=== PATIENT | female | born 1935 | race Caucasian/White ===

== ENCOUNTER 2017-11-05 09:33 | Inpatient (IN) | payer OTHER ==
[~2017-11-05] VITALS: Ht 162.6 cm; Wt 66.7 kg
[2017-11-05] MEDS ORDERED: IV NORMAL SALINE 500ML BAG 500 ML IV ONE (10:30)
[2017-11-05 10:41] LABS: BILIRUBIN,URINE NEGATIVE (NEG); GLUCOSE,URINE NEGATIVE (NEG); NITRITE,URINE NEGATIVE (NEG); PROTEIN,URINE 30 mg/dL (NEG-TRACE); UROBILINOGEN,URINE 0.2 mg/dL (0.2 mg/dL)
[2017-11-05 10:41] LABS: BASO % 1 % (0-3); EOS % 1 % (0-3); HEMATOCRIT 38.1 % (36.0-47.0); HEMOGLOBIN 12.9 g/dL (12.0-15.5); LYMPH # 1.2 x10^3/uL (1.0-4.8); LYMPH % 23 % (24-48); MEAN CORPUSCULAR HEMOGLOBIN 32 pg (25-35); MEAN CORPUSCULAR HGB CONC 34 g/dL (31-37); MEAN CORPUSCULAR VOLUME 95 fL (79-100); MONO % 16 % (0-9); NEUT % 59 % (31-73); PLATELET COUNT 224 x10^3/uL (140-400); RED BLOOD COUNT 4.01 x10^6/uL (3.50-5.40); RED CELL DISTRIBUTION WIDTH 14.3 % (11.5-14.5); WHITE BLOOD COUNT 5.3 x10^3/uL (4.0-11.0)
[2017-11-05 10:42] LABS: CALCIUM 8.9 mg/dL (8.5-10.1); CREATININE 1.2 mg/dL (0.6-1.0); POTASSIUM 4.1 mmol/L (3.5-5.1)
[2017-11-05 10:47] LABS: ALBUMIN 3.6 g/dL (3.4-5.0); ALBUMIN/GLOBULIN RATIO 1.2 (1.0-1.7); TOTAL BILIRUBIN 0.4 mg/dL (0.2-1.0); TOTAL PROTEIN 6.6 g/dL (6.4-8.2)
--- NOTE | 2017-11-05 10:58 | RAD ---
PQRS Compliance Statement: One or more of the following individualized dose reduction techniques were utilized for this examination: 1. Automated exposure control 2. Adjustment of the mA and/or kV according to patient size 3. Use of iterative reconstruction technique CT HEAD AND CERVICAL SPINE WITHOUT CONTRAST History: syncope head injury Comparison: None. Procedure: Axial images are obtained of the head from the skull base through the vertex without IV contrast. Noncontrast helical CT of the cervical spine was performed. Axial, sagittal, and coronal reconstructions were obtained. Head Findings: The ventricles and sulci are prominent, consistent with age-related cerebral atrophy. There is moderate periventricular white matter hypoattenuation. This is a nonspecific finding but is commonly due to chronic small vessel ischemic disease in a patient of this age. No mass-effect, midline shift, hemorrhage or obvious acute infarction is identified. Basilar cisterns are patent. Bone windows demonstrate no significant calvarial abnormality. The visualized paranasal sinuses appear clear. Mastoid air cells are well aerated. Cervical Spine Findings: There is no evidence of acute fracture or acute malalignment. . The facet joints are intact but hypertrophic. Some of the left facet joints are fused. There is minimal grade 1 anterolisthesis of C6 on C7. There is fracture at the superior endplate of C7 but this is not acute. Large anterior endplate spurs of C6/C7. Disc space is relatively maintained. There is moderate retrograde odontoid soft tissue thickening that nearly abuts the ventral cord. Bilateral carotid bulb calcifications. Question narrowing of the right internal carotid artery. The visualized lung apices are clear. IMPRESSION: 1. No acute intracranial abnormality. Senescent changes. 2. No acute fracture of the cervical spine. 3. Old compression fracture at the superior endplate of C7.
--- NOTE | 2017-11-05 10:59 | RAD ---
AP PORTABLE CHEST Clinical Indication: cough. Comparison: None. Findings: Cardiac size upper limits of normal. Calcified granulomas in the bilateral lung bases. Lungs are clear. There is no pneumothorax. No pleural effusion is appreciated. There is no acute bone abnormality. IMPRESSION: No acute cardiopulmonary process.
[2017-11-05 11:09] LABS: BACTERIA,URINE 0 /HPF (0-FEW); SQUAMOUS EPITHELIAL CELL,UR MOD /LPF
[2017-11-05 11:11] LABS: INR 0.9 (0.8-1.1)
--- NOTE | 2017-11-05 11:15 | EKG ---
[facility] [address] [place] [id number] Test Date: 2017-11-05 Test Time: 09:53:12 Pat Name: JEMAL MONTES Department: Room: Gender: F Family Program Specialist: : [id number] Requested By: AMINATA BAEZ Order Number: [id number] Reading MD: Measurements Intervals Call Rate: 79 P: 175 CO: 146 QRS: 0 QRSD: 80 T: 25 QT: 356 QTc: 413 Interpretive Statements SINUS RHYTHM LEFTWARD AXIS QRS(T) CONTOUR ABNORMALITY CONSISTENT WITH ANTEROSEPTAL INFARCT AGE UNDETERMINED ABNORMAL ECG No previous ECG available for comparison
[2017-11-05] MEDS ORDERED: ACETAMINOPHEN 325 MG TABLET. PO PRN (13:45)
[2017-11-05] MEDS ORDERED: ONDANSETRON PF 4 MG/2 ML VIAL. IV PRN (13:45)
[2017-11-05 14:00] VITALS: BP 160/46
[2017-11-05 16:00] VITALS: BP 149/46
[2017-11-05] MEDS ORDERED: CETI10CA12 PO (16:29)
[2017-11-05] MEDS ORDERED: LISI40TA PO (16:29)
[2017-11-05] MEDS ORDERED: LEVO100T5 PO (16:29)
[2017-11-05] MEDS ORDERED: AMLO5TAB2 PO (16:29)
[2017-11-05] MEDS ORDERED: ASPI-630 PO (16:29)
[2017-11-05] MEDS ORDERED: MULT-245 PO (16:29)
[2017-11-05] MEDS ORDERED: CALC1TAB67 PO (16:29)
--- NOTE | 2017-11-05 17:31 | PDOC1 ---
History and Physical Date of Admission Date of Admission DATE: 11/05/17 TIME: 17:23 Identification/Chief Complaint Chief Complaint syncope Problems: Source Source: Chart review, Patient History of Present Illness History of Present Illness Ms. Gandara presented to the ER s/p acute syncope, she was in the bathroom, fixing her hair, and had no prodrome and blacked out. SHe did not remember event and awoke on the floor, she does not think she injured herself She also fell last night 5:30pm, and hit the posterior of her head, she has had some headache since, Pain 3/10 no dyspnea, no post-ictal, some small chills and fever and cough last 3 days, her and she both have symptoms of common cold Past Medical History Cardiovascular: No pertinent hx Pulmonary: No pertinent hx Hepatobiliary: No pertinent hx Psych: No pertinent hx Musculoskeletal: low back pain Rheumatologic: No pertinent hx Infectious disease: No pertinent hx ENT: No pertinent hx Renal/: No pertinent hx Family History Family History: No Significant Social History Smoke: No ALCOHOL: none Current Problem List Problem List Problems Medical Problems: (1) Syncope Status: Acute Problems: Current Medications Current Medications Current Medications Sodium Chloride 500 ml @ 0 mls/hr 1X ONCE IV Last administered on 11/05/17t 10:30; Start 11/05/17 at 10:30; Stop 11/05/17 at 10:31; Status DC Ondansetron HCl (Zofran) 4 mg PRN Q8HRS PRN IV NAUSEA/VOMITING; Start at 13:45; Stop 11/06/17 at 13:44 Acetaminophen (Tylenol) 650 mg PRN Q4HRS PRN PO FEVER; Start 11/05/17 at 13:45 ; Stop 11/06/17 at 13:44 Active Scripts Active Reported Wal-Zyr (Cetirizine HCl) 10 Mg Capsule 10 Mg PO PRN DAILY PRN Multi Vitamin Daily (Multivitamin) 1 Each Tablet 1.5 Each PO DAILY Calcitrate + Vit D Caplet (Calcium Citrate/Vitamin D3) 1 Each Tablet 1 Each PO DAILY Aspirin 81 Mg Tab.chew 81 Mg PO DAILY Levothyroxine Sodium 100 Mcg Tablet 100 Mcg PO DAILYAC Amlodipine Besylate 5 Mg Tablet 5 Mg PO DAILY Lisinopril 40 Mg Tablet 40 Mg PO DAILY Allergies Allergies: Coded Allergies: erythromycin base (Verified Allergy, Intermediate, 11/05/17) ROS General: YES: Fatigue, No: Chills, Night Sweats, Malaise, Appetite, Other PSYCHOLOGICAL ROS: No: Anxiety, Behavioral Disorder, Concentration difficultie , Decreased libido, Depression, Disorientation, Hallucinations, Hostility, Irritablity, Memory difficulties, Mood Swings, Obsessive thoughts, Physical abuse, Sexual abuse, Sleep disturbances, Suicidal ideation, Other Eyes: No Blurry vision, No Decreased vision, No Double vision, No Dry eyes, No Excessive tearing, No Eye Pain, No Itchy Eyes, No Loss of vision, No Photophobia , No Scotomata, No Uses contacts, No Uses glasses, No Other HEENT: No: Heacaches, Visual Changes, Hearing change, Nasal congestion, Nasal discharge, Oral lesions, Sinus pain, Sore Throat, Epistaxis, Sneezing, Snoring, Tinnitus, Vertigo, Vocal changes, Other Respiratory: No: Cough, Hemoptysis, Orthopnea, Pleuritic Pain, Shortness of breath, SOB with excertion, Sputum Changes, Stridor, Tachypnea, Wheezing, Other Cardiovascular: No Chest Pain, No Palpitations, No Orthopnea, No Paroxysmal Noc. Dyspnea, No Edema, No Lt Headedness, No Other Gastrointestinal: No Nausea, No Vomiting, No Abdominal Pain, No Diarrhea, No Constipation, No Melena, No Hematochezia, No Other Genitourinary: No Dysuria, No Frequency, No Incontinence, No Hematuria, No Retention, No Discharge, No Urgency, No Pain, No Flank Pain, No Other, No , No , No , No , No , No , No Musculoskeletal: Yes Joint Pain, No Gait Disturbance, No Joint Stiffness, No Joint Swelling, No Muscle Pain, No Muscular Weakness, No Pain In:, No Swelling In:, No Other Neurological: No Behavorial Changes, No Bowel/Bladder ControlChng, No Confusion , No Dizziness, No Gait Disturbance, No Headaches, No Impaired Coord/balance, No Memory Loss, No Numbness/Tingling, No Seizures, No Speech Problems, No Tremors, No Visual Changes, No Weakness, No Other Skin: No Dry Skin, No Eczema, No Hair Changes, No Lumps, No Mole Changes, No Mottling, No Nail Changes, No Pruritus, No Rash, No Skin Lesion Changes, No Other, No Acne Physical Exam General: Alert, Oriented X3, Cooperative, No acute distress HEENT: Atraumatic, PERRLA, EOMI, Mucous membr. moist/pink Lungs: Clear to auscultation, Normal air movement Heart: S1S2, no gallops, no murmurs Abdomen: Normal bowel sounds Rectal Exam: not examined Extremities: No cyanosis, No edema Skin: No rashes, No significant lesion Neuro: Normal gait, Normal speech, Normal tone Psych/Mental Status: Mental status NL, Mood NL Vitals Vitals Vital Signs Date Time Temp Pulse Resp B/P (MAP) Pulse Ox O2 Delivery O2 Flow Rate FiO2 11/05/17 16:00 96.0 70 16 149/46 (80) 92 Room Air 96.0 Labs Labs Laboratory Tests Test 11/05/17 09:46 11/05/17 10:01 Urine Collection Type Unknown Urine Color Yellow Urine Clarity Clear Urine pH 8.0 Urine Specific [place] 1.015 Urine Protein 30 mg/dL (NEG-TRACE) Urine Glucose (UA) Negative mg/dL (NEG) Urine Ketones (Stick) Negative mg/dL (NEG) Urine Blood Negative (NEG) Urine Nitrite Negative (NEG) Urine Bilirubin Negative (NEG) Urine Urobilinogen Dipstick 0.2 mg/dL (0.2 mg/dL) Urine Leukocyte Esterase Negative (NEG) Urine RBC 6-10 /HPF (0-2) Urine WBC 1-4 /HPF (0-4) Urine Squamous Epithelial Cells Mod /LPF Urine Renal Epithelial Cells Occ /LPF Urine Bacteria 0 /HPF (0-FEW) Urine Hyaline Casts Few /HPF White Blood Count 5.3 x10^3/uL (4.0-11.0) Red Blood Count 4.01 x10^6/uL (3.50-5.40) Hemoglobin 12.9 g/dL (12.0-15.5) Hematocrit 38.1 % (36.0-47.0) Mean Corpuscular Volume 95 fL (79-100) Mean Corpuscular Hemoglobin 32 pg (25-35) Mean Corpuscular Hemoglobin Concent 34 g/dL (31-37) Red Cell Distribution Width 14.3 % (11.5-14.5) Platelet Count 224 x10^3/uL (140-400) Neutrophils (%) (Auto) 59 % (31-73) Lymphocytes (%) (Auto) 23 % (24-48) Monocytes (%) (Auto) 16 % (0-9) Eosinophils (%) (Auto) 1 % (0-3) Basophils (%) (Auto) 1 % (0-3) Neutrophils # (Auto) 3.1 x10^3uL (1.8-7.7) Lymphocytes # (Auto) 1.2 x10^3/uL (1.0-4.8) Monocytes # (Auto) 0.9 x10^3/uL (0.0-1.1) Eosinophils # (Auto) 0.1 x10^3/uL (0.0-0.7) Basophils # (Auto) 0.0 x10^3/uL (0.0-0.2) Prothrombin Time 12.0 SEC (11.7-14.0) Prothromb Time International Ratio 0.9 (0.8-1.1) Activated Partial Thromboplast Time 29 SEC (24-38) Sodium Level 141 mmol/L (136-145) Potassium Level 4.1 mmol/L (3.5-5.1) Chloride Level 101 mmol/L (98-107) Carbon Dioxide Level 29 mmol/L (21-32) Anion Gap 11 (6-14) Blood Urea Nitrogen 11 mg/dL (7-20) Creatinine 1.2 mg/dL (0.6-1.0) Estimated GFR (Cockcroft-Gault) 43.0 BUN/Creatinine Ratio 9 (6-20) Glucose Level 108 mg/dL (70-99) Calcium Level 8.9 mg/dL (8.5-10.1) Magnesium Level 2.0 mg/dL (1.8-2.4) Total Bilirubin 0.4 mg/dL (0.2-1.0) Aspartate Amino Transf (AST/SGOT) 37 U/L (15-37) Alanine Aminotransferase (ALT/SGPT) 29 U/L (14-59) Alkaline Phosphatase 116 U/L (46-116) Troponin I Quantitative < 0.017 ng/mL (0.000-0.055) RZ-Crf-P-Type Natriuretic Peptide 1249 pg/mL (0-449) Total Protein 6.6 g/dL (6.4-8.2) Albumin 3.6 g/dL (3.4-5.0) Albumin/Globulin Ratio 1.2 (1.0-1.7) Thyroid Stimulating Hormone (TSH) 1.228 uIU/mL (0.358-3.74) Laboratory Tests Test 11/05/17 09:46 11/05/17 10:01 Urine Collection Type Unknown Urine Color Yellow Urine Clarity Clear Urine pH 8.0 Urine Specific [place] 1.015 Urine Protein 30 mg/dL (NEG-TRACE) Urine Glucose (UA) Negative mg/dL (NEG) Urine Ketones (Stick) Negative mg/dL (NEG) Urine Blood Negative (NEG) Urine Nitrite Negative (NEG) Urine Bilirubin Negative (NEG) Urine Urobilinogen Dipstick 0.2 mg/dL (0.2 mg/dL) Urine Leukocyte Esterase Negative (NEG) Urine RBC 6-10 /HPF (0-2) Urine WBC 1-4 /HPF (0-4) Urine Squamous Epithelial Cells Mod /LPF Urine Renal Epithelial Cells Occ /LPF Urine Bacteria 0 /HPF (0-FEW) Urine Hyaline Casts Few /HPF White Blood Count 5.3 x10^3/uL (4.0-11.0) Red Blood Count 4.01 x10^6/uL (3.50-5.40) Hemoglobin 12.9 g/dL (12.0-15.5) Hematocrit 38.1 % (36.0-47.0) Mean Corpuscular Volume 95 fL (79-100) Mean Corpuscular Hemoglobin 32 pg (25-35) Mean Corpuscular Hemoglobin Concent 34 g/dL (31-37) Red Cell Distribution Width 14.3 % (11.5-14.5) Platelet Count 224 x10^3/uL (140-400) Neutrophils (%) (Auto) 59 % (31-73) Lymphocytes (%) (Auto) 23 % (24-48) Monocytes (%) (Auto) 16 % (0-9) Eosinophils (%) (Auto) 1 % (0-3) Basophils (%) (Auto) 1 % (0-3) Neutrophils # (Auto) 3.1 x10^3uL (1.8-7.7) Lymphocytes # (Auto) 1.2 x10^3/uL (1.0-4.8) Monocytes # (Auto) 0.9 x10^3/uL (0.0-1.1) Eosinophils # (Auto) 0.1 x10^3/uL (0.0-0.7) Basophils # (Auto) 0.0 x10^3/uL (0.0-0.2) Prothrombin Time 12.0 SEC (11.7-14.0) Prothromb Time International Ratio 0.9 (0.8-1.1) Activated Partial Thromboplast Time 29 SEC (24-38) Sodium Level 141 mmol/L (136-145) Potassium Level 4.1 mmol/L (3.5-5.1) Chloride Level 101 mmol/L (98-107) Carbon Dioxide Level 29 mmol/L (21-32) Anion Gap 11 (6-14) Blood Urea Nitrogen 11 mg/dL (7-20) Creatinine 1.2 mg/dL (0.6-1.0) Estimated GFR (Cockcroft-Gault) 43.0 BUN/Creatinine Ratio 9 (6-20) Glucose Level 108 mg/dL (70-99) Calcium Level 8.9 mg/dL (8.5-10.1) Magnesium Level 2.0 mg/dL (1.8-2.4) Total Bilirubin 0.4 mg/dL (0.2-1.0) Aspartate Amino Transf (AST/SGOT) 37 U/L (15-37) Alanine Aminotransferase (ALT/SGPT) 29 U/L (14-59) Alkaline Phosphatase 116 U/L (46-116) Troponin I Quantitative < 0.017 ng/mL (0.000-0.055) PA-Bmm-I-Type Natriuretic Peptide 1249 pg/mL (0-449) Total Protein 6.6 g/dL (6.4-8.2) Albumin 3.6 g/dL (3.4-5.0) Albumin/Globulin Ratio 1.2 (1.0-1.7) Thyroid Stimulating Hormone (TSH) 1.228 uIU/mL (0.358-3.74) VTE Prophylaxis Ordered VTE Prophylaxis Devices: Yes VTE Pharmacological Prophylaxi: No Assessment/Plan Assessment/Plan syncope x2, last night caused concussion, some post skull pain Cardiac history, of mild chronic systolic CHF, follows w/ Dr Lagunast, tele, UA, TSH hypothyroid viral illness, NOS, cough and runny nose, poss rhinovirus CV consult DINO GLASS MD Nov 05, 2017 17:31
[2017-11-05] MEDS ORDERED: CETIRIZINE HCL 10 MG TABLET. PO PRN (17:34)
--- NOTE | 2017-11-05 17:51 | PHYS DOC ---
Past Medical History Past Medical History: High Cholesterol, Hypertension, Hypothyroid, Uterine Fibroids Additional Past Medical Histor: osteoporosis, breast ca Past Surgical History: Appendectomy, Cholecystectomy, Tonsillectomy Alcohol Use: Occasionally Drug Use: None Adult General Chief Complaint Chief Complaint: SYNCOPE HPI HPI Patient is a 82 year old female who presents with syncope. The patient states shortly prior to arrival she experienced syncope without prodrome at her home. She doesn't remember the events preceding the fall, states she woke up on the ground. Family members saw her fall, no seizure activity witnessed. They think she hit her head & was unconscious for 2-3 minutes. She denies any precipitating chest pain, palpitations, shortness of breath, headache. She has recent dry cough & nasal congestion. Denies fevers/chills, vomiting, diarrhea, dysuria. She had a similar syncopal episode yesterday. She does not use a cane or walker to ambulate at home. She complains of headache but denies other injuries. Denies use of blood thinners. PCP is Dr. Mccullough. Review of Systems Review of Systems Constitutional: Denies fever or chills Eyes: Denies change in visual acuity HENT: Reports nasal congestion Respiratory: Reports cough, denies shortness of breath Cardiovascular: Denies chest pain or edema GI: Denies abdominal pain, nausea, vomiting, bloody stools or diarrhea : Denies dysuria or hematuria Musculoskeletal: Denies back pain or joint pain Integument: Denies rash or skin lesions Neurologic: Reports headache, denies focal weakness or sensory changes All other systems were reviewed and found to be within normal limits, except as documented in this note. Current Medications Current Medications Current Medications Medications (Trade) Dose Ordered Sig/Neftali Start Time Stop Time Status Last Admin Dose Admin Sodium Chloride 500 ml @ 0 mls/hr 1X ONCE 11/05/17 10:30 11/05/17 10:31 DC 11/05/17 10:30 1,000 MLS/HR Physical Exam Physical Exam Constitutional: Well developed, well nourished, no acute distress, non-toxic appearance. HENT: Normocephalic, atraumatic, bilateral external ears normal, oropharynx moist, nose normal. Eyes: PERRLA, EOMI, conjunctiva normal, no discharge. Neck: supple, no stridor. no midline c-spine tenderness. Cardiovascular: RRR, no murmurs, no edema. Lungs & Thorax: LCTAB, no wheezing, no respiratory distress. Abdomen: soft, nontender, nondistended. Skin: Warm, dry, no erythema, no rash. Back: No tenderness. Extremities: No tenderness, no edema. no focal bony tenderness to upper & lower extremities including hips/pelvis. Neurologic: Alert and oriented X 3, cranial nerves 2-12 grossly intact, symmetric strength/sensation to upper & lower extremities, no focal deficits noted. Psychologic: Affect normal, judgement normal, mood normal. Current Patient Data Vital Signs Vital Signs Date Time Temp Pulse Resp B/P (MAP) Pulse Ox O2 Delivery O2 Flow Rate FiO2 11/05/17 12:00 66 18 147/95 (112) 89 Room Air Lab Values Laboratory Tests Test 11/05/17 09:46 11/05/17 10:01 Urine Collection Type Unknown Urine Color Yellow Urine Clarity Clear Urine pH 8.0 Urine Specific [place] 1.015 Urine Protein 30 mg/dL (NEG-TRACE) Urine Glucose (UA) Negative mg/dL (NEG) Urine Ketones (Stick) Negative mg/dL (NEG) Urine Blood Negative (NEG) Urine Nitrite Negative (NEG) Urine Bilirubin Negative (NEG) Urine Urobilinogen Dipstick 0.2 mg/dL (0.2 mg/dL) Urine Leukocyte Esterase Negative (NEG) Urine RBC 6-10 /HPF (0-2) Urine WBC 1-4 /HPF (0-4) Urine Squamous Epithelial Cells Mod /LPF Urine Renal Epithelial Cells Occ /LPF Urine Bacteria 0 /HPF (0-FEW) Urine Hyaline Casts Few /HPF White Blood Count 5.3 x10^3/uL (4.0-11.0) Red Blood Count 4.01 x10^6/uL (3.50-5.40) Hemoglobin 12.9 g/dL (12.0-15.5) Hematocrit 38.1 % (36.0-47.0) Mean Corpuscular Volume 95 fL (79-100) Mean Corpuscular Hemoglobin 32 pg (25-35) Mean Corpuscular Hemoglobin Concent 34 g/dL (31-37) Red Cell Distribution Width 14.3 % (11.5-14.5) Platelet Count 224 x10^3/uL (140-400) Neutrophils (%) (Auto) 59 % (31-73) Lymphocytes (%) (Auto) 23 % (24-48) L Monocytes (%) (Auto) 16 % (0-9) H Eosinophils (%) (Auto) 1 % (0-3) Basophils (%) (Auto) 1 % (0-3) Neutrophils # (Auto) 3.1 x10^3uL (1.8-7.7) Lymphocytes # (Auto) 1.2 x10^3/uL (1.0-4.8) Monocytes # (Auto) 0.9 x10^3/uL (0.0-1.1) Eosinophils # (Auto) 0.1 x10^3/uL (0.0-0.7) Basophils # (Auto) 0.0 x10^3/uL (0.0-0.2) Prothrombin Time 12.0 SEC (11.7-14.0) Prothrombin Time INR 0.9 (0.8-1.1) PTT 29 SEC (24-38) Sodium Level 141 mmol/L (136-145) Potassium Level 4.1 mmol/L (3.5-5.1) Chloride Level 101 mmol/L (98-107) Carbon Dioxide Level 29 mmol/L (21-32) Anion Gap 11 (6-14) Blood Urea Nitrogen 11 mg/dL (7-20) Creatinine 1.2 mg/dL (0.6-1.0) H Estimated GFR (Cockcroft-Gault) 43.0 BUN/Creatinine Ratio 9 (6-20) Glucose Level 108 mg/dL (70-99) H Calcium Level 8.9 mg/dL (8.5-10.1) Magnesium Level 2.0 mg/dL (1.8-2.4) Total Bilirubin 0.4 mg/dL (0.2-1.0) Aspartate Amino Transferase (AST) 37 U/L (15-37) Alanine Aminotransferase (ALT) 29 U/L (14-59) Alkaline Phosphatase 116 U/L (46-116) Troponin I Quantitative < 0.017 ng/mL (0.000-0.055) PU-Vsn-P-Type Natriuretic Peptide 1249 pg/mL (0-449) H Total Protein 6.6 g/dL (6.4-8.2) Albumin 3.6 g/dL (3.4-5.0) Albumin/Globulin Ratio 1.2 (1.0-1.7) Thyroid Stimulating Hormone (TSH) 1.228 uIU/mL (0.358-3.74) Laboratory Tests 11/05/17 10:01 Laboratory Tests 11/05/17 10:01 EKG EKG Interpreted by me: [id number]: Normal sinus rhythm rate 80, no acute ST or T wave changes, normal intervals, no ectopy. Radiology/Procedures Radiology/Procedures PROCEDURE: CT HEAD AND CERVICAL SPINE [facility] Compliance Statement: One or more of the following individualized dose reduction techniques were utilized for this examination: 1. Automated exposure control 2. Adjustment of the mA and/or kV according to patient size 3. Use of iterative reconstruction technique CT HEAD AND CERVICAL SPINE WITHOUT CONTRAST History: syncope head injury Comparison: None. Procedure: Axial images are obtained of the head from the skull base through the vertex without IV contrast. Noncontrast helical CT of the cervical spine was performed. Axial, sagittal, and coronal reconstructions were obtained. Head Findings: The ventricles and sulci are prominent, consistent with age-related cerebral atrophy. There is moderate periventricular white matter hypoattenuation. This is a nonspecific finding but is commonly due to chronic small vessel ischemic disease in a patient of this age. No mass-effect, midline shift, hemorrhage or obvious acute infarction is identified. Basilar cisterns are patent. Bone windows demonstrate no significant calvarial abnormality. The visualized paranasal sinuses appear clear. Mastoid air cells are well aerated. Cervical Spine Findings: There is no evidence of acute fracture or acute malalignment. . The facet joints are intact but hypertrophic. Some of the left facet joints are fused. There is minimal grade 1 anterolisthesis of C6 on C7. There is fracture at the superior endplate of C7 but this is not acute. Large anterior endplate spurs of C6/C7. Disc space is relatively maintained. There is moderate retrograde odontoid soft tissue thickening that nearly abuts the ventral cord. Bilateral carotid bulb calcifications. Question narrowing of the right internal carotid artery. The visualized lung apices are clear. IMPRESSION: 1. No acute intracranial abnormality. Senescent changes. 2. No acute fracture of the cervical spine. 3. Old compression fracture at the superior endplate of C7. DICTATED and SIGNED BY: SYDNI MCKEE MD DATE: 11/05/17 1047 PROCEDURE: CHEST AP ONLY AP PORTABLE CHEST Clinical Indication: cough. Comparison: None. Findings: Cardiac size upper limits of normal. Calcified granulomas in the bilateral lung bases. Lungs are clear. There is no pneumothorax. No pleural effusion is appreciated. There is no acute bone abnormality. IMPRESSION: No acute cardiopulmonary process. DICTATED and SIGNED BY: SYDNI MCKEE MD DATE: 11/05/17 1054[] Course & Med Decision Making Course & Med Decision Making Pertinent Labs and Imaging studies reviewed. (See chart for details) The patient presents with syncope without prodrome now with head injury. Obtained CT head & c-spine which shows no serious injury. Obtained labs, EKG, CXR. No significant findings to explain her symptoms. I did recommend admission for multiple episodes of syncope without prodrome, concerning for cardiac etiology of syncope. I am also concerned about risk of additional falls resulting in serious injury. Patient agrees with plan of care. Discussed with Dr. Ortega who agrees to admit to inpatient status. Cardiology consult to Dr. Sood. The patient is admitted in stable condition. Dragon Disclaimer Dragon Disclaimer This electronic medical record was generated, in whole or in part, using a voice recognition dictation system. Departure Departure Impression: Primary Impression: Syncope Additional Impression: Closed head injury Disposition: ADMITTED INPATIENT Admitting Physician: Elizabet Ortega Condition: STABLE Problem Qualifiers Primary Impression: Syncope Syncope type: unspecified Qualified Codes: R55 - Syncope and collapse AMINATA BAEZ MD Nov 05, 2017 17:51
[2017-11-05 19:20] VITALS: BP 156/47
[2017-11-05 23:32] VITALS: BP 129/48
[2017-11-06 03:38] VITALS: BP 130/48
[2017-11-06 07:00] VITALS: BP 151/50
[2017-11-06] MEDS ORDERED: LEVOTHYROXINE 100 MCG TABLET PO SCH (07:30)
[2017-11-06 07:33] LABS: BASO % 1 % (0-3); EOS % 1 % (0-3); HEMATOCRIT 36.1 % (36.0-47.0); LYMPH % 48 % (24-48); MEAN CORPUSCULAR HEMOGLOBIN 32 pg (25-35); MEAN CORPUSCULAR HGB CONC 33 g/dL (31-37); MEAN CORPUSCULAR VOLUME 97 fL (79-100); MONO % 22 % (0-9); NEUT % 29 % (31-73); PLATELET COUNT 184 x10^3/uL (140-400); RED BLOOD COUNT 3.74 x10^6/uL (3.50-5.40); RED CELL DISTRIBUTION WIDTH 14.5 % (11.5-14.5); WHITE BLOOD COUNT 4.2 x10^3/uL (4.0-11.0)
[2017-11-06 07:53] LABS: CALCIUM 8.5 mg/dL (8.5-10.1); CREATININE 1.2 mg/dL (0.6-1.0); POTASSIUM 4.2 mmol/L (3.5-5.1)
[2017-11-06] MEDS ORDERED: CALCIUM CARB/VIT D3 500/200 TABLET. PO SCH (08:00)
[2017-11-06] MEDS ORDERED: LISINOPRIL 40 MG TABLET. PO SCH (09:00)
[2017-11-06] MEDS ORDERED: ASPIRIN CHEWABLE 81 MG TABLET. PO SCH (09:00)
[2017-11-06] MEDS ORDERED: amLODIPine BESYLATE 5 MG TABLET PO SCH (09:00)
[2017-11-06] MEDS ORDERED: MULTIVITAMIN with MINERAL TABLET. PO SCH (09:00)
[2017-11-06 09:06] LABS: % EOS 1 % (0-5); PLT ESTIMATE ADEQUATE (ADEQUATE)
--- NOTE | 2017-11-06 10:57 | PDOC2 ---
CONSULT Date of Consult Date of Consult DATE: 11/06/17 TIME: 10:57 Reason for Consult Reason for Consult: syncope Referring Physician Referring Physician: Dr. Ortega Identification/Chief Complaint Chief Complaint Syncope Problems: Source Source: Chart review, Patient History of Present Illness Reason for Visit: 82-year-old female apparently was in her bathroom fixing her hair when she suddenly passed out and hit her head. According to her , she was not arousable for a few minutes. She had similar episode a few days ago. She thinks these episodes could be secondary to overworking herself due to holiday season. She denied any other episodes of dizziness or syncope in the past. She denied any chest pain, orthopnea/PND or palpitations. Past Medical History Cardiovascular: No pertinent hx Pulmonary: No pertinent hx Hepatobiliary: No pertinent hx Psych: No pertinent hx Musculoskeletal: low back pain Rheumatologic: No pertinent hx Infectious disease: No pertinent hx ENT: No pertinent hx Renal/: No pertinent hx Family History Family History: No Significant Social History No ALCOHOL: none Current Problem List Problem List Problems Medical Problems: (1) Closed head injury Status: Acute (2) Syncope Status: Acute Current Medications Current Medications Current Medications Sodium Chloride 500 ml @ 0 mls/hr 1X ONCE IV Last administered on 11/05/17 10:30; Start 11/05/17 at 10:30; Stop 11/05/17 at 10:31; Status DC Ondansetron HCl (Zofran) 4 mg PRN Q8HRS PRN IV NAUSEA/VOMITING; Start at 13:45; Stop 11/06/17 at 13:44 Acetaminophen (Tylenol) 650 mg PRN Q4HRS PRN PO FEVER Last administered on 21:21; Start 11/05/17 at 13:45; Stop 11/06/17 at 13:44 Amlodipine Besylate (Norvasc) 5 mg DAILY PO Last administered on 11/06/17 08: 41; Start 11/06/17 at 09:00 Aspirin (Children'S Aspirin) 81 mg DAILY PO Last administered on 11/06/17 08: 41; Start 11/06/17 at 09:00 Levothyroxine Sodium (Synthroid) 100 mcg DAILYAC PO Last administered on 08:41; Start 11/06/17 at 07:30 Lisinopril (Prinivil) 40 mg DAILY PO Last administered on 11/06/17 08:41; Start 11/06/17 at 09:00 Calcium/Vitamin D (Oscal D 500mg/ 200uts) 1 tab DAILYWBKFT PO Last administered on 11/06/17 08:40; Start 11/06/17 at 08:00 Cetirizine HCl (ZyrTEC) 10 mg PRN DAILY PRN PO ALLERGIES; Start 11/05/17 at 17 :34 Multivitamins (Thera M Plus) 1 tab DAILY PO Last administered on 11/06/17 08: 40; Start 11/06/17 at 09:00 Active Scripts Active Reported Wal-Zyr (Cetirizine HCl) 10 Mg Capsule 10 Mg PO PRN DAILY PRN Multi Vitamin Daily (Multivitamin) 1 Each Tablet 1.5 Each PO DAILY Calcitrate + Vit D Caplet (Calcium Citrate/Vitamin D3) 1 Each Tablet 1 Each PO DAILY Aspirin 81 Mg Tab.chew 81 Mg PO DAILY Levothyroxine Sodium 100 Mcg Tablet 100 Mcg PO DAILYAC Amlodipine Besylate 5 Mg Tablet 5 Mg PO DAILY Lisinopril 40 Mg Tablet 40 Mg PO DAILY Allergies Allergies: Coded Allergies: erythromycin base (Verified Allergy, Intermediate, 11/05/17) ROS PSYCHOLOGICAL ROS: No: Hallucinations Eyes: No Loss of vision HEENT: No: Epistaxis Respiratory: No: Hemoptysis, Shortness of breath Cardiovascular: No Chest Pain Gastrointestinal: No Vomiting, No Diarrhea Genitourinary: No Hematuria Neurological: Yes Other (syncope), No Seizures Skin: No Rash Physical Exam General: Alert, Oriented X3 HEENT: Atraumatic, PERRLA Lungs: Clear to auscultation Heart: Regular rate Abdomen: Soft, No tenderness Extremities: No edema Psych/Mental Status: Mood NL Vitals VITALS Vital Signs Date Time Temp Pulse Resp B/P (MAP) Pulse Ox O2 Delivery O2 Flow Rate FiO2 11/06/17 08:41 62 130/48 11/06/17 07:00 97.9 18 93 Room Air 97.9 Labs Labs Laboratory Tests Test 11/05/17 09:46 11/05/17 10:01 11/06/17 06:00 Urine Collection Type Unknown Urine Color Yellow Urine Clarity Clear Urine pH 8.0 Urine Specific [place] 1.015 Urine Protein 30 mg/dL (NEG-TRACE) Urine Glucose (UA) Negative mg/dL (NEG) Urine Ketones (Stick) Negative mg/dL (NEG) Urine Blood Negative (NEG) Urine Nitrite Negative (NEG) Urine Bilirubin Negative (NEG) Urine Urobilinogen Dipstick 0.2 mg/dL (0.2 mg/dL) Urine Leukocyte Esterase Negative (NEG) Urine RBC 6-10 /HPF (0-2) Urine WBC 1-4 /HPF (0-4) Urine Squamous Epithelial Cells Mod /LPF Urine Renal Epithelial Cells Occ /LPF Urine Bacteria 0 /HPF (0-FEW) Urine Hyaline Casts Few /HPF White Blood Count 5.3 x10^3/uL (4.0-11.0) 4.2 x10^3/uL (4.0-11.0) Red Blood Count 4.01 x10^6/uL (3.50-5.40) 3.74 x10^6/uL (3.50-5.40) Hemoglobin 12.9 g/dL (12.0-15.5) 12.0 g/dL (12.0-15.5) Hematocrit 38.1 % (36.0-47.0) 36.1 % (36.0-47.0) Mean Corpuscular Volume 95 fL (79-100) 97 fL (79-100) Mean Corpuscular Hemoglobin 32 pg (25-35) 32 pg (25-35) Mean Corpuscular Hemoglobin Concent 34 g/dL (31-37) 33 g/dL (31-37) Red Cell Distribution Width 14.3 % (11.5-14.5) 14.5 % (11.5-14.5) Platelet Count 224 x10^3/uL (140-400) 184 x10^3/uL (140-400) Neutrophils (%) (Auto) 59 % (31-73) 29 % (31-73) Lymphocytes (%) (Auto) 23 % (24-48) 48 % (24-48) Monocytes (%) (Auto) 16 % (0-9) 22 % (0-9) Eosinophils (%) (Auto) 1 % (0-3) 1 % (0-3) Basophils (%) (Auto) 1 % (0-3) 1 % (0-3) Neutrophils # (Auto) 3.1 x10^3uL (1.8-7.7) 1.2 x10^3uL (1.8-7.7) Lymphocytes # (Auto) 1.2 x10^3/uL (1.0-4.8) 2.0 x10^3/uL (1.0-4.8) Monocytes # (Auto) 0.9 x10^3/uL (0.0-1.1) 0.9 x10^3/uL (0.0-1.1) Eosinophils # (Auto) 0.1 x10^3/uL (0.0-0.7) 0.0 x10^3/uL (0.0-0.7) Basophils # (Auto) 0.0 x10^3/uL (0.0-0.2) 0.0 x10^3/uL (0.0-0.2) Prothrombin Time 12.0 SEC (11.7-14.0) Prothromb Time International Ratio 0.9 (0.8-1.1) Activated Partial Thromboplast Time 29 SEC (24-38) Sodium Level 141 mmol/L (136-145) 144 mmol/L (136-145) Potassium Level 4.1 mmol/L (3.5-5.1) 4.2 mmol/L (3.5-5.1) Chloride Level 101 mmol/L (98-107) 107 mmol/L (98-107) Carbon Dioxide Level 29 mmol/L (21-32) 29 mmol/L (21-32) Anion Gap 11 (6-14) 8 (6-14) Blood Urea Nitrogen 11 mg/dL (7-20) 14 mg/dL (7-20) Creatinine 1.2 mg/dL (0.6-1.0) 1.2 mg/dL (0.6-1.0) Estimated GFR (Cockcroft-Gault) 43.0 43.0 BUN/Creatinine Ratio 9 (6-20) Glucose Level 108 mg/dL (70-99) 87 mg/dL (70-99) Calcium Level 8.9 mg/dL (8.5-10.1) 8.5 mg/dL (8.5-10.1) Magnesium Level 2.0 mg/dL (1.8-2.4) Total Bilirubin 0.4 mg/dL (0.2-1.0) Aspartate Amino Transf (AST/SGOT) 37 U/L (15-37) Alanine Aminotransferase (ALT/SGPT) 29 U/L (14-59) Alkaline Phosphatase 116 U/L (46-116) Troponin I Quantitative < 0.017 ng/mL (0.000-0.055) EK-Nwe-Q-Type Natriuretic Peptide 1249 pg/mL (0-449) Total Protein 6.6 g/dL (6.4-8.2) Albumin 3.6 g/dL (3.4-5.0) Albumin/Globulin Ratio 1.2 (1.0-1.7) Thyroid Stimulating Hormone (TSH) 1.228 uIU/mL (0.358-3.74) Segmented Neutrophils % 31 % (35-66) Band Neutrophils % 3 % (0-9) Lymphocytes % 40 % (24-48) Atypical Lymphocytes % (Manual) 5 % (0-0) Monocytes % 20 % (0-10) Eosinophils % 1 % (0-5) Platelet Estimate Adequate (ADEQUATE) Laboratory Tests Test 11/06/17 06:00 White Blood Count 4.2 x10^3/uL (4.0-11.0) Red Blood Count 3.74 x10^6/uL (3.50-5.40) Hemoglobin 12.0 g/dL (12.0-15.5) Hematocrit 36.1 % (36.0-47.0) Mean Corpuscular Volume 97 fL (79-100) Mean Corpuscular Hemoglobin 32 pg (25-35) Mean Corpuscular Hemoglobin Concent 33 g/dL (31-37) Red Cell Distribution Width 14.5 % (11.5-14.5) Platelet Count 184 x10^3/uL (140-400) Neutrophils (%) (Auto) 29 % (31-73) Lymphocytes (%) (Auto) 48 % (24-48) Monocytes (%) (Auto) 22 % (0-9) Eosinophils (%) (Auto) 1 % (0-3) Basophils (%) (Auto) 1 % (0-3) Neutrophils # (Auto) 1.2 x10^3uL (1.8-7.7) Lymphocytes # (Auto) 2.0 x10^3/uL (1.0-4.8) Monocytes # (Auto) 0.9 x10^3/uL (0.0-1.1) Eosinophils # (Auto) 0.0 x10^3/uL (0.0-0.7) Basophils # (Auto) 0.0 x10^3/uL (0.0-0.2) Segmented Neutrophils % 31 % (35-66) Band Neutrophils % 3 % (0-9) Lymphocytes % 40 % (24-48) Atypical Lymphocytes % (Manual) 5 % (0-0) Monocytes % 20 % (0-10) Eosinophils % 1 % (0-5) Platelet Estimate Adequate (ADEQUATE) Sodium Level 144 mmol/L (136-145) Potassium Level 4.2 mmol/L (3.5-5.1) Chloride Level 107 mmol/L (98-107) Carbon Dioxide Level 29 mmol/L (21-32) Anion Gap 8 (6-14) Blood Urea Nitrogen 14 mg/dL (7-20) Creatinine 1.2 mg/dL (0.6-1.0) Estimated GFR (Cockcroft-Gault) 43.0 Glucose Level 87 mg/dL (70-99) Calcium Level 8.5 mg/dL (8.5-10.1) Assessment/Plan Assessment/Plan 1. Syncope most probably secondary to exhaustion. Telemetry did not show any significant arrhythmia so far. Carotid artery massage did not show evidence for carotid artery hypersensitivity syndrome. Patient was asked to follow-up with her primary identification technician Dr. Galvan for 2-D echocardiogram to rule out structural abnormalities and 21 day event monitor to rule out arrhythmic etiology. 2. Hypothyroidism: Continue levothyroxine 3. Mild acute on chronic diastolic heart failure, currently better compensated. 4. Hypertension: Well-controlled Thank you for your consultation ADRIÁN KEMP MD Nov 06, 2017 10:57
[2017-11-06 11:07] VITALS: BP 141/46
--- NOTE | 2017-11-06 12:37 | PDOC ---
PROGRESS NOTES Chief Complaint Chief Complaint Syncope x2 Hit posterior head, CT head negative HLD HTN Hypothyroid History of Present Illness History of Present Illness Patient seen and examined. States she was seen this morning by cardiology and cleared. Denies PEGUERO, lightheadedness, chest pain, or shortness of breath. Vitals Vitals Vital Signs Date Time Temp Pulse Resp B/P (MAP) Pulse Ox O2 Delivery O2 Flow Rate FiO2 11/06/17 11:07 97.9 65 18 141/46 (77) 93 Room Air 97.9 Physical Exam General: Alert, Oriented X3, Cooperative, No acute distress Heart: Regular rate, Normal S1, Normal S2 Abdomen: Normal bowel sounds Extremities: No cyanosis, No edema Skin: No rashes, No significant lesion Labs LABS Laboratory Tests Test 11/06/17 06:00 White Blood Count 4.2 x10^3/uL (4.0-11.0) Red Blood Count 3.74 x10^6/uL (3.50-5.40) Hemoglobin 12.0 g/dL (12.0-15.5) Hematocrit 36.1 % (36.0-47.0) Mean Corpuscular Volume 97 fL (79-100) Mean Corpuscular Hemoglobin 32 pg (25-35) Mean Corpuscular Hemoglobin Concent 33 g/dL (31-37) Red Cell Distribution Width 14.5 % (11.5-14.5) Platelet Count 184 x10^3/uL (140-400) Neutrophils (%) (Auto) 29 % (31-73) Lymphocytes (%) (Auto) 48 % (24-48) Monocytes (%) (Auto) 22 % (0-9) Eosinophils (%) (Auto) 1 % (0-3) Basophils (%) (Auto) 1 % (0-3) Neutrophils # (Auto) 1.2 x10^3uL (1.8-7.7) Lymphocytes # (Auto) 2.0 x10^3/uL (1.0-4.8) Monocytes # (Auto) 0.9 x10^3/uL (0.0-1.1) Eosinophils # (Auto) 0.0 x10^3/uL (0.0-0.7) Basophils # (Auto) 0.0 x10^3/uL (0.0-0.2) Segmented Neutrophils % 31 % (35-66) Band Neutrophils % 3 % (0-9) Lymphocytes % 40 % (24-48) Atypical Lymphocytes % (Manual) 5 % (0-0) Monocytes % 20 % (0-10) Eosinophils % 1 % (0-5) Platelet Estimate Adequate (ADEQUATE) Sodium Level 144 mmol/L (136-145) Potassium Level 4.2 mmol/L (3.5-5.1) Chloride Level 107 mmol/L (98-107) Carbon Dioxide Level 29 mmol/L (21-32) Anion Gap 8 (6-14) Blood Urea Nitrogen 14 mg/dL (7-20) Creatinine 1.2 mg/dL (0.6-1.0) Estimated GFR (Cockcroft-Gault) 43.0 Glucose Level 87 mg/dL (70-99) Calcium Level 8.5 mg/dL (8.5-10.1) Review of Systems Review of Systems Denies vertigo, lightheadedness, chest pain or shortness of breath. Assessment and Plan Assessmemt and Plan Problems Medical Problems: (1) Closed head injury Status: Acute (2) Syncope Status: Acute Syncope x2 Hit posterior head, CT head negative HLD HTN Hypothyroid PLAN: Continue home medications Cardiology following PT/OT probable d/c today if cleared with cardiology Follow up with PCP within 2 weeks Problems: Comment Review of Relevant I have reviewed the following items kirna (where applicable) has been applied. Labs Laboratory Tests Test 11/05/17 09:46 11/05/17 10:01 11/06/17 06:00 Urine Collection Type Unknown Urine Color Yellow Urine Clarity Clear Urine pH 8.0 Urine Specific [place] 1.015 Urine Protein 30 mg/dL (NEG-TRACE) Urine Glucose (UA) Negative mg/dL (NEG) Urine Ketones (Stick) Negative mg/dL (NEG) Urine Blood Negative (NEG) Urine Nitrite Negative (NEG) Urine Bilirubin Negative (NEG) Urine Urobilinogen Dipstick 0.2 mg/dL (0.2 mg/dL) Urine Leukocyte Esterase Negative (NEG) Urine RBC 6-10 /HPF (0-2) Urine WBC 1-4 /HPF (0-4) Urine Squamous Epithelial Cells Mod /LPF Urine Renal Epithelial Cells Occ /LPF Urine Bacteria 0 /HPF (0-FEW) Urine Hyaline Casts Few /HPF White Blood Count 5.3 x10^3/uL (4.0-11.0) 4.2 x10^3/uL (4.0-11.0) Red Blood Count 4.01 x10^6/uL (3.50-5.40) 3.74 x10^6/uL (3.50-5.40) Hemoglobin 12.9 g/dL (12.0-15.5) 12.0 g/dL (12.0-15.5) Hematocrit 38.1 % (36.0-47.0) 36.1 % (36.0-47.0) Mean Corpuscular Volume 95 fL (79-100) 97 fL (79-100) Mean Corpuscular Hemoglobin 32 pg (25-35) 32 pg (25-35) Mean Corpuscular Hemoglobin Concent 34 g/dL (31-37) 33 g/dL (31-37) Red Cell Distribution Width 14.3 % (11.5-14.5) 14.5 % (11.5-14.5) Platelet Count 224 x10^3/uL (140-400) 184 x10^3/uL (140-400) Neutrophils (%) (Auto) 59 % (31-73) 29 % (31-73) Lymphocytes (%) (Auto) 23 % (24-48) 48 % (24-48) Monocytes (%) (Auto) 16 % (0-9) 22 % (0-9) Eosinophils (%) (Auto) 1 % (0-3) 1 % (0-3) Basophils (%) (Auto) 1 % (0-3) 1 % (0-3) Neutrophils # (Auto) 3.1 x10^3uL (1.8-7.7) 1.2 x10^3uL (1.8-7.7) Lymphocytes # (Auto) 1.2 x10^3/uL (1.0-4.8) 2.0 x10^3/uL (1.0-4.8) Monocytes # (Auto) 0.9 x10^3/uL (0.0-1.1) 0.9 x10^3/uL (0.0-1.1) Eosinophils # (Auto) 0.1 x10^3/uL (0.0-0.7) 0.0 x10^3/uL (0.0-0.7) Basophils # (Auto) 0.0 x10^3/uL (0.0-0.2) 0.0 x10^3/uL (0.0-0.2) Prothrombin Time 12.0 SEC (11.7-14.0) Prothromb Time International Ratio 0.9 (0.8-1.1) Activated Partial Thromboplast Time 29 SEC (24-38) Sodium Level 141 mmol/L (136-145) 144 mmol/L (136-145) Potassium Level 4.1 mmol/L (3.5-5.1) 4.2 mmol/L (3.5-5.1) Chloride Level 101 mmol/L (98-107) 107 mmol/L (98-107) Carbon Dioxide Level 29 mmol/L (21-32) 29 mmol/L (21-32) Anion Gap 11 (6-14) 8 (6-14) Blood Urea Nitrogen 11 mg/dL (7-20) 14 mg/dL (7-20) Creatinine 1.2 mg/dL (0.6-1.0) 1.2 mg/dL (0.6-1.0) Estimated GFR (Cockcroft-Gault) 43.0 43.0 BUN/Creatinine Ratio 9 (6-20) Glucose Level 108 mg/dL (70-99) 87 mg/dL (70-99) Calcium Level 8.9 mg/dL (8.5-10.1) 8.5 mg/dL (8.5-10.1) Magnesium Level 2.0 mg/dL (1.8-2.4) Total Bilirubin 0.4 mg/dL (0.2-1.0) Aspartate Amino Transf (AST/SGOT) 37 U/L (15-37) Alanine Aminotransferase (ALT/SGPT) 29 U/L (14-59) Alkaline Phosphatase 116 U/L (46-116) Troponin I Quantitative < 0.017 ng/mL (0.000-0.055) WJ-Ddn-L-Type Natriuretic Peptide 1249 pg/mL (0-449) Total Protein 6.6 g/dL (6.4-8.2) Albumin 3.6 g/dL (3.4-5.0) Albumin/Globulin Ratio 1.2 (1.0-1.7) Thyroid Stimulating Hormone (TSH) 1.228 uIU/mL (0.358-3.74) Segmented Neutrophils % 31 % (35-66) Band Neutrophils % 3 % (0-9) Lymphocytes % 40 % (24-48) Atypical Lymphocytes % (Manual) 5 % (0-0) Monocytes % 20 % (0-10) Eosinophils % 1 % (0-5) Platelet Estimate Adequate (ADEQUATE) Laboratory Tests Test 11/06/17 06:00 White Blood Count 4.2 x10^3/uL (4.0-11.0) Red Blood Count 3.74 x10^6/uL (3.50-5.40) Hemoglobin 12.0 g/dL (12.0-15.5) Hematocrit 36.1 % (36.0-47.0) Mean Corpuscular Volume 97 fL (79-100) Mean Corpuscular Hemoglobin 32 pg (25-35) Mean Corpuscular Hemoglobin Concent 33 g/dL (31-37) Red Cell Distribution Width 14.5 % (11.5-14.5) Platelet Count 184 x10^3/uL (140-400) Neutrophils (%) (Auto) 29 % (31-73) Lymphocytes (%) (Auto) 48 % (24-48) Monocytes (%) (Auto) 22 % (0-9) Eosinophils (%) (Auto) 1 % (0-3) Basophils (%) (Auto) 1 % (0-3) Neutrophils # (Auto) 1.2 x10^3uL (1.8-7.7) Lymphocytes # (Auto) 2.0 x10^3/uL (1.0-4.8) Monocytes # (Auto) 0.9 x10^3/uL (0.0-1.1) Eosinophils # (Auto) 0.0 x10^3/uL (0.0-0.7) Basophils # (Auto) 0.0 x10^3/uL (0.0-0.2) Segmented Neutrophils % 31 % (35-66) Band Neutrophils % 3 % (0-9) Lymphocytes % 40 % (24-48) Atypical Lymphocytes % (Manual) 5 % (0-0) Monocytes % 20 % (0-10) Eosinophils % 1 % (0-5) Platelet Estimate Adequate (ADEQUATE) Sodium Level 144 mmol/L (136-145) Potassium Level 4.2 mmol/L (3.5-5.1) Chloride Level 107 mmol/L (98-107) Carbon Dioxide Level 29 mmol/L (21-32) Anion Gap 8 (6-14) Blood Urea Nitrogen 14 mg/dL (7-20) Creatinine 1.2 mg/dL (0.6-1.0) Estimated GFR (Cockcroft-Gault) 43.0 Glucose Level 87 mg/dL (70-99) Calcium Level 8.5 mg/dL (8.5-10.1) Medications Current Medications Sodium Chloride 500 ml @ 0 mls/hr 1X ONCE IV Last administered on 11/05/17 10:30; Start 11/05/17 at 10:30; Stop 11/05/17 at 10:31; Status DC Ondansetron HCl (Zofran) 4 mg PRN Q8HRS PRN IV NAUSEA/VOMITING; Start at 13:45; Stop 11/06/17 at 13:44 Acetaminophen (Tylenol) 650 mg PRN Q4HRS PRN PO FEVER Last administered on 21:21; Start 11/05/17 at 13:45; Stop 11/06/17 at 13:44 Amlodipine Besylate (Norvasc) 5 mg DAILY PO Last administered on 11/06/17 08: 41; Start 11/06/17 at 09:00 Aspirin (Children'S Aspirin) 81 mg DAILY PO Last administered on 11/06/17 08: 41; Start 11/06/17 at 09:00 Levothyroxine Sodium (Synthroid) 100 mcg DAILYAC PO Last administered on 08:41; Start 11/06/17 at 07:30 Lisinopril (Prinivil) 40 mg DAILY PO Last administered on 11/06/17 08:41; Start 11/06/17 at 09:00 Calcium/Vitamin D (Oscal D 500mg/ 200uts) 1 tab DAILYWBKFT PO Last administered on 11/06/17 08:40; Start 11/06/17 at 08:00 Cetirizine HCl (ZyrTEC) 10 mg PRN DAILY PRN PO ALLERGIES; Start 11/05/17 at 17 :34 Multivitamins (Thera M Plus) 1 tab DAILY PO Last administered on 11/06/17t 08: 40; Start 11/06/17 at 09:00 Active Scripts Active Reported Wal-Zyr (Cetirizine HCl) 10 Mg Capsule 10 Mg PO PRN DAILY PRN Multi Vitamin Daily (Multivitamin) 1 Each Tablet 1.5 Each PO DAILY Calcitrate + Vit D Caplet (Calcium Citrate/Vitamin D3) 1 Each Tablet 1 Each PO DAILY Aspirin 81 Mg Tab.chew 81 Mg PO DAILY Levothyroxine Sodium 100 Mcg Tablet 100 Mcg PO DAILYAC Amlodipine Besylate 5 Mg Tablet 5 Mg PO DAILY Lisinopril 40 Mg Tablet 40 Mg PO DAILY Vitals/I & O Vital Sign - Last 24 Hours 11/05/17 11/05/17 11/05/17 11/05/17 12:55 14:00 16:00 19:20 Temp 98.3 98.1 96.0 101.8 98.3 98.1 96.0 101.8 Pulse 72 69 70 74 Resp 16 18 B/P (MAP) 164/71 (102) 160/46 (84) 149/46 (80) 156/47 (83) Pulse Ox 94 92 92 90 O2 Delivery Room Air Room Air Room Air Room Air 11/05/17 11/05/17 11/06/17 11/06/17 19:55 23:32 03:38 07:00 Temp 98.2 97.7 97.9 98.2 97.7 97.9 Pulse 63 62 60 Resp 18 18 B/P (MAP) 129/48 (75) 130/48 (75) 151/50 (83) Pulse Ox 90 93 93 O2 Delivery Room Air Room Air Room Air Room Air 11/06/17 11/06/17 11/06/17 08:41 08:41 11:07 Temp 97.9 97.9 Pulse 62 62 65 Resp 18 B/P (MAP) 130/48 130/48 141/46 (77) Pulse Ox 93 O2 Delivery Room Air Intake and Output 11/05/17 11/05/17 11/06/17 15:00 23:00 07:00 Intake Total 240 ml 400 ml Balance 240 ml 400 ml TERA PIMENTELL K III DO Nov 06, 2017 12:37
== END 2017-11-06 13:10 | disposition home or self-care (01) | DRG 88 ==
LOC: ER 09:33 → 5 SOUTH 12:06
PROVIDERS: ADMIT Internal Medicine; ATTEND Internal Medicine
DX: S06.0X9A Concussion with loss of consciousness of unspecified duration, initial encounter (principal); I50.43 Acute on chronic combined systolic (congestive) and diastolic (congestive) heart failure; B34.9 Viral infection, unspecified; W18.39XA Other fall on same level, initial encounter; I11.0 Hypertensive heart disease with heart failure; E03.9 Hypothyroidism, unspecified; E78.5 Hyperlipidemia, unspecified; M54.5 Low back pain; M81.0 Age-related osteoporosis without current pathological fracture; Z85.3 Personal history of malignant neoplasm of breast; Z90.49 Acquired absence of other specified parts of digestive tract; Y93.89 Activity, other specified; Y92.091 Bathroom in other non-institutional residence as the place of occurrence of the external cause; Y99.8 Other external cause status; Z88.8 Allergy status to other drugs, medicaments and biological substances
CPT/HCPCS: 36415; 70450; 71010; 72125; 80048; 80053; 81001; 83735; 83880; 84443; 84484; 85007; 85025; 85610; 85730; 93005; 99285; J7040

== ENCOUNTER 2020-06-11 11:53 | Inpatient (IN) | payer MEDICARE ==
[~2020-06-11] VITALS: Ht 162.6 cm; Wt 74.4 kg
[~2020-06-11 11:53] MED LIST: AMLO5TAB10 PO; ASPI-630 PO; CALC1TAB67 PO; CETI10CA12 PO; LEVO100T5 PO; LISI-130 PO; MULT-245 PO
[2020-06-11] MEDS ORDERED: MORPHINE SULFATE 2 MG/ML VIAL. IV ONE (12:30)
[2020-06-11] MEDS ORDERED: ONDANSETRON PF 4 MG/2 ML VIAL. IVP ONE (12:30)
--- NOTE | 2020-06-11 12:37 | PHYS DOC ---
Past Medical History Past Medical History: High Cholesterol, Hypertension, Hypothyroid, Uterine Fibroids Additional Past Medical Histor: osteoporosis, breast ca Past Surgical History: Appendectomy, Cholecystectomy, Tonsillectomy Smoking Status: Never Smoker Alcohol Use: Occasionally Drug Use: None General Adult EDM: Chief Complaint: LOWEREXTREMITY INJURY HPI: HPI: Patient is a 85 year old female who presents for evaluation with a ground-level fall and right hip femur pain. Patient was walking her dog and tripped over the dog falling landing on right side. Patient denies hitting her head has no loss of consciousness. Patient has no nausea vomiting. Patient has severe pain in the right femur area radiating into the knee. Pain is significantly worse with movement or palpation. Review of Systems: Review of Systems: Constitutional: Denies fever or chills. [] Eyes: Denies change in visual acuity. [] HENT: Denies nasal congestion or sore throat. [] Respiratory: Denies cough or shortness of breath. [] Cardiovascular: Denies chest pain or edema. [] GI: Denies abdominal pain, nausea, vomiting, bloody stools or diarrhea. [] : Denies dysuria. [] Musculoskeletal: Complains of right femur pain Integument: Denies rash. [] Neurologic: Denies headache, focal weakness or sensory changes. [] Endocrine: Denies polyuria or polydipsia. [] Lymphatic: Denies swollen glands. [] Psychiatric: Denies depression or anxiety. [] Heart Score: Risk Factors: Risk Factors: DM, Current or recent (<one month) smoker, HTN, HLP, family history of CAD, obesity. Risk Scores: Score 0 - 3: 2.5% MACE over next 6 weeks - Discharge Home Score 4 - 6: 20.3% MACE over next 6 weeks - Admit for Clinical Observation Score 7 - 10: 72.7% MACE over next 6 weeks - Early Invasive Strategies Current Medications: Current Medications Medications (Trade) Dose Ordered Sig/Neftali Start Time Stop Time Status Last Admin Dose Admin Morphine Sulfate (Morphine Sulfate) 2 mg 1X ONCE 06/11/20 12:30 06/11/20 12:31 DC Ondansetron HCl (Zofran) 4 mg 1X ONCE 06/11/20 12:30 06/11/20 12:31 DC Allergies: Allergies: Allergies Coded Allergies Type Severity Reaction Last Updated Verified erythromycin base Allergy Intermediate 11/05/17 Yes Physical Exam: PE: Constitutional: Well developed, well nourished, no acute distress, non-toxic appearance. [] HENT: Normocephalic, atraumatic, bilateral external ears normal, no trismus nose normal. [] Eyes: PERRLA, EOMI, conjunctiva normal, no discharge. [] Neck: Normal range of motion, no tenderness, supple, no stridor. [] Cardiovascular:Heart rate regular rhythm peripheral pulses intact cap refill normal Lungs & Thorax: No respiratory distress Abdomen: , soft, no tenderness, no masses, no pulsatile masses. [] Skin: Warm, dry, no erythema, no rash. [] Back: No tenderness, no CVA tenderness. [] Extremities: Moderate tenderness to palpate on the right femur with limited range of motion. Neurovascular intact distally. Small abrasion with minimal tenderness on the right elbow Neurologic: Alert and oriented X 3, normal motor function, normal sensory fu nction, no focal deficits noted. [] Psychologic: Affect normal, judgement normal, mood normal. [] Current Patient Data: Labs: Laboratory Tests Test 06/11/20 14:05 White Blood Count 14.2 x10^3/uL Red Blood Count 3.87 x10^6/uL Hemoglobin 12.6 g/dL Hematocrit 37.6 % Mean Corpuscular Volume 97 fL Mean Corpuscular Hemoglobin 33 pg Mean Corpuscular Hemoglobin Concent 33 g/dL Red Cell Distribution Width 14.4 % Platelet Count 274 x10^3/uL Neutrophils (%) (Auto) 84 % Lymphocytes (%) (Auto) 9 % Monocytes (%) (Auto) 7 % Eosinophils (%) (Auto) 1 % Basophils (%) (Auto) 1 % Neutrophils # (Auto) 11.9 x10^3/uL Lymphocytes # (Auto) 1.2 x10^3/uL Monocytes # (Auto) 0.9 x10^3/uL Eosinophils # (Auto) 0.1 x10^3/uL Basophils # (Auto) 0.1 x10^3/uL Prothrombin Time 11.6 SEC Prothromb Time International Ratio 0.9 Activated Partial Thromboplast Time 22 SEC Sodium Level 140 mmol/L Potassium Level 5.1 mmol/L Chloride Level 104 mmol/L Carbon Dioxide Level 29 mmol/L Anion Gap 7 Blood Urea Nitrogen 11 mg/dL Creatinine 1.1 mg/dL Estimated GFR (Cockcroft-Gault) 47.2 BUN/Creatinine Ratio 10 Glucose Level 114 mg/dL Calcium Level 9.1 mg/dL Total Bilirubin 0.6 mg/dL Aspartate Amino Transf (AST/SGOT) 23 U/L Alanine Aminotransferase (ALT/SGPT) 27 U/L Alkaline Phosphatase 118 U/L Total Protein 6.4 g/dL Albumin 3.3 g/dL Albumin/Globulin Ratio 1.1 Current Medications Medications (Trade) Dose Ordered Sig/Neftali Route PRN Reason Start Time Stop Time Status Last Admin Dose Admin Morphine Sulfate (Morphine Sulfate) 2 mg 1X ONCE IV 06/11/20 12:30 06/11/20 12:31 DC 06/11/20 12:30 Ondansetron HCl (Zofran) 4 mg 1X ONCE IVP 06/11/20 12:30 06/11/20 12:31 DC 06/11/20 12:30 Morphine Sulfate (Morphine Sulfate) 2 mg PRN Q2HR PRN IV PAIN 06/11/20 14:15 06/12/20 14:14 Vital Signs: Vital Signs Date Time Temp Pulse Resp B/P (MAP) Pulse Ox O2 Delivery O2 Flow Rate FiO2 06/11/20 12:30 98.0 68 12 181/72 (108) 99 Room Air 98.0 EKG: EKG: [] EKG interpreted by me normal sinus rhythm with left axis deviation normal TX interval normal QTC nonspecific ST changes with a rate of 63 Radiology/Procedures: Radiology/Procedures: [][facility] [address] [place] [address] IMAGING REPORT Signed PATIENT: JEMAL MONTES ACCOUNT: [id number] : 1935 LOCATION: ER AGE: 85 SEX: F EXAM STATUS: REG ER ORD. PHYSICIAN: KATARINA CHOWDHURY MD REASON: fall PROCEDURE: RIGHT FEMUR XRAY EXAM: PORTABLE CHEST 1V INDICATION: Reason: fall / Spl. Instructions: / History: . TECHNIQUE: Single view COMPARISON: None FINDINGS: The heart size is normal. The great vessels appear unremarkable. There is no hilar or mediastinal mass. The lungs are clear. There is no pleural effusion or pneumothorax. There are no significant osseous abnormalities. IMPRESSION: No active cardiopulmonary disease. PROCEDURE: HIP RIGHT 2V WITH PELVIS STUDY DATE: 06/11/2020 CLINICAL INDICATION / HISTORY: Reason: fall / Spl. Instructions: / History: . TECHNIQUE: Three views of the right hip and pelvis were obtained. COMPARISON: Right femur x-rays same day FINDINGS: The osseous structures are normally mineralized. There is normal bony alignment present with the femoral heads well-seated within the acetabuli. The pelvic ring is intact. An acute comminuted fracture of the right proximal femur is present, involving the lesser trochanter. The overlying soft tissues are grossly unremarkable. IMPRESSION: Acute comminuted fracture of the proximal right hip. Pelvis and left hip otherwise are unremarkable. See report on right femur for additional details. PROCEDURE: RIGHT FEMUR XRAY STUDY DATE: 06/11/2020 CLINICAL INDICATION / HISTORY: Reason: fall / Spl. Instructions: / History: . TECHNIQUE: Right femur 2 views. COMPARISON: None FINDINGS: The bone density appears normal. An acute, comminuted intertrochanteric right hip fracture is identified. The femoral head is not dislocated. The distal femoral fracture fragment shows mild proximal override and medial displacement. The soft tissues show arterial vascular calcification. IMPRESSION: Acute comminuted intertrochanteric right hip fracture. PROCEDURE: KNEE RIGHT 3V STUDY DATE: 06/11/2020 CLINICAL INDICATION / HISTORY: Reason: fall / Spl. Instructions: / History: . TECHNIQUE: AP, lateral, and oblique views of the right knee. COMPARISON: Right femur x-rays same day FINDINGS: The osseous structures are intact. The articular surfaces are smooth. The joint space is maintained. No intra-articular loose bodies. The alignment is within normal limits. The soft tissues are notable for arterial vascular calcifications.. No obvious joint effusion. No radio-opaque foreign bodies are identified. IMPRESSION: No fracture or dislocation is identified in the right knee. However, see report on right femur x-rays same day for additional details.. Electronically signed by: Suzette Rivera MD (06/11/2020 1:18 PM) [id number] DICTATED and SIGNED BY: SUZETTE RIVERA MD DATE: 06/11/20 1318 Course & Med Decision Making: Course & Med Decision Making Pertinent Labs and Imaging studies reviewed. (See chart for details) [] Patient with a displaced right intertrochanteric hip fracture. Patient will be admitted to Dr. Toussaint with a consult placed with orthopedist. Patient with some pain control after treatment in ER but still having pain. Blanche Disclaimer: Blanche Disclaimer: This electronic medical record was generated, in whole or in part, using a voice recognition dictation system. Departure Departure Impression: Primary Impression: Intertrochanteric fracture of right hip Disposition: ADMITTED INPATIENT Admitting Physician: TASNEEM Moser) Condition: STABLE Referrals: ARMANDO PIMENTEL MD (PCP) Justicifation of Admission Dx: Justifications for Admission: Justification of Admission Dx: Yes KATARINA CHOWDHURY MD Jun 11, 2020 12:37
--- NOTE | 2020-06-11 13:21 | RAD ---
EXAM: PORTABLE CHEST 1V INDICATION: Reason: fall / Spl. Instructions: / History: . TECHNIQUE: Single view COMPARISON: None FINDINGS: The heart size is normal. The great vessels appear unremarkable. There is no hilar or mediastinal mass. The lungs are clear. There is no pleural effusion or pneumothorax. There are no significant osseous abnormalities. IMPRESSION: No active cardiopulmonary disease. PROCEDURE: HIP RIGHT 2V WITH PELVIS STUDY DATE: 06/11/2020 CLINICAL INDICATION / HISTORY: Reason: fall / Spl. Instructions: / History: . TECHNIQUE: Three views of the right hip and pelvis were obtained. COMPARISON: Right femur x-rays same day FINDINGS: The osseous structures are normally mineralized. There is normal bony alignment present with the femoral heads well-seated within the acetabuli. The pelvic ring is intact. An acute comminuted fracture of the right proximal femur is present, involving the lesser trochanter. The overlying soft tissues are grossly unremarkable. IMPRESSION: Acute comminuted fracture of the proximal right hip. Pelvis and left hip otherwise are unremarkable. See report on right femur for additional details. PROCEDURE: RIGHT FEMUR XRAY STUDY DATE: 06/11/2020 CLINICAL INDICATION / HISTORY: Reason: fall / Spl. Instructions: / History: . TECHNIQUE: Right femur 2 views. COMPARISON: None FINDINGS: The bone density appears normal. An acute, comminuted intertrochanteric right hip fracture is identified. The femoral head is not dislocated. The distal femoral fracture fragment shows mild proximal override and medial displacement. The soft tissues show arterial vascular calcification. IMPRESSION: Acute comminuted intertrochanteric right hip fracture. PROCEDURE: KNEE RIGHT 3V STUDY DATE: 06/11/2020 CLINICAL INDICATION / HISTORY: Reason: fall / Spl. Instructions: / History: . TECHNIQUE: AP, lateral, and oblique views of the right knee. COMPARISON: Right femur x-rays same day FINDINGS: The osseous structures are intact. The articular surfaces are smooth. The joint space is maintained. No intra-articular loose bodies. The alignment is within normal limits. The soft tissues are notable for arterial vascular calcifications.. No obvious joint effusion. No radio-opaque foreign bodies are identified. IMPRESSION: No fracture or dislocation is identified in the right knee. However, see report on right femur x-rays same day for additional details.. Electronically signed by: Vivian Rivera MD (06/11/2020 1:18 PM) [id number]
[2020-06-11 14:17] LABS: BASO # 0.1 x10^3/uL (0.0-0.2); BASO % 1 % (0-3); EOS # 0.1 x10^3/uL (0.0-0.7); EOS % 1 % (0-3); HEMATOCRIT 37.6 % (36.0-47.0); HEMOGLOBIN 12.6 g/dL (12.0-15.5); LYMPH # 1.2 x10^3/uL (1.0-4.8); LYMPH % 9 % (24-48); MEAN CORPUSCULAR HEMOGLOBIN 33 pg (25-35); MEAN CORPUSCULAR HGB CONC 33 g/dL (31-37); MEAN CORPUSCULAR VOLUME 97 fL (79-100); MONO # 0.9 x10^3/uL (0.0-1.1); MONO % 7 % (0-9); NEUT # 11.9 x10^3/uL (1.8-7.7); NEUT % 84 % (31-73); PLATELET COUNT 274 x10^3/uL (140-400); RED BLOOD COUNT 3.87 x10^6/uL (3.50-5.40); RED CELL DISTRIBUTION WIDTH 14.4 % (11.5-14.5); WHITE BLOOD COUNT 14.2 x10^3/uL (4.0-11.0)
[2020-06-11 14:27] LABS: PROTHROMBIN TIME PATIENT 11.6 SEC (11.7-14.0)
[2020-06-11 14:28] LABS: CALCIUM 9.1 mg/dL (8.5-10.1); CREATININE 1.1 mg/dL (0.6-1.0); GFR 47.2; POTASSIUM 5.1 mmol/L (3.5-5.1)
[2020-06-11 14:35] LABS: ALBUMIN 3.3 g/dL (3.4-5.0); ALBUMIN/GLOBULIN RATIO 1.1 (1.0-1.7); TOTAL BILIRUBIN 0.6 mg/dL (0.2-1.0); TOTAL PROTEIN 6.4 g/dL (6.4-8.2)
[2020-06-11 15:58] LABS: BILIRUBIN,URINE NEGATIVE (NEG); CLARITY,URINE CLEAR; COLOR,URINE YELLOW; NITRITE,URINE NEGATIVE (NEG); PH,URINE 5.5 (<5.0-8.0); PROTEIN,URINE NEGATIVE (NEG-TRACE); UROBILINOGEN,URINE 0.2 mg/dL (0.2 mg/dL)
[2020-06-11 16:03] LABS: BACTERIA,URINE 0 /HPF (0-FEW); HYALINE CASTS, URINE MODERATE /HPF
[2020-06-11] MEDS: MORPHINE SULFATE 2 MG/ML VIAL. IV PRN ×2 (16:28→18:49)
[2020-06-11 16:45] VITALS: BP 156/46
[2020-06-11] MEDS: amLODIPine BESYLATE 5 MG TABLET PO SCH (18:47)
[2020-06-11 19:00] VITALS: BP 104/53
--- NOTE | 2020-06-11 19:12 | PDOC1 ---
History and Physical Date of Admission Date of Admission DATE: 06/11/20 TIME: 19:08 History of Present Illness History of Present Illness Ms. Cammie Gandara, is a 85 year old female admit after a ground-level fall and right hip femur pain. She was walking her dog and tripped over the dog falling landing on right side. Her leg was set at a strange angle and he has pain to her mid thigh to her hip. she did not hit her head, Patient has no nausea vomiting. Patient has severe pain in the right femur area radiating into the knee. Pain is significantly worse with movement or palpation. Past Medical History Cardiovascular: No pertinent hx Pulmonary: No pertinent hx Hepatobiliary: No pertinent hx Psych: No pertinent hx Musculoskeletal: low back pain Rheumatologic: No pertinent hx Infectious disease: No pertinent hx Renal/: No pertinent hx Family History Family History: No Significant Social History Smoke: No ALCOHOL: none Current Problem List Problem List Problems Medical Problems: (1) Intertrochanteric fracture of right hip Status: Acute Current Medications Current Medications Current Medications Morphine Sulfate (Morphine Sulfate) 2 mg 1X ONCE IV Last administered on 06/11/20at 12:30; Start 06/11/20 at 12:30; Stop 06/11/20 at 12:31; Status DC Ondansetron HCl (Zofran) 4 mg 1X ONCE IVP Last administered on 06/11/20at 12:30; Start 06/11/20 at 12:30; Stop 06/11/20 at 12:31; Status DC Morphine Sulfate (Morphine Sulfate) 2 mg PRN Q2HR PRN IV PAIN Last administered on 06/11/20at 18:49; Start 06/11/20 at 14:15; Stop 06/12/20 at 14:14 Ondansetron HCl (Zofran) 4 mg PRN Q6HRS PRN IV NAUSEA/VOMITING; Start 06/12/20 at 07:00; Stop 06/13/20 at 06:59 Fentanyl Citrate (Fentanyl 2ml Vial) 25 mcg PRN Q5MIN PRN IV MILD PAIN 1-3; Start 06/12/20 at 07:00; Stop 06/13/20 at 06:59 Fentanyl Citrate (Fentanyl 2ml Vial) 50 mcg PRN Q5MIN PRN IV MODERATE TO SEVERE PAIN; Start 06/12/20 at 07:00; Stop 06/13/20 at 06:59 Morphine Sulfate (Morphine Sulfate) 1 mg PRN Q10MIN PRN IV SEVERE PAIN 7-10; Start 06/12/20 at 07:00; Stop 06/13/20 at 06:59 Ringer's Solution 1,000 ml @ 30 mls/hr Q24H IV ; Start 06/12/20 at 07:00; Stop 06/12/20 at 18:59 Lidocaine HCl (Xylocaine-Mpf 1% 2ml Vial) 2 ml PRN 1X PRN ID PRIOR TO IV START; Start 06/12/20 at 07:00; Stop 06/13/20 at 06:59 Hydromorphone HCl (Dilaudid) 0.5 mg PRN Q10MIN PRN IV SEV PAIN, Second choice; Start 06/12/20 at 07:00; Stop 06/13/20 at 06:59 Prochlorperazine Edisylate (Compazine) 5 mg PACU PRN PRN IV NAUSEA, MRX1; Start 06/12/20 at 07:00; Stop 06/13/20 at 06:59 Morphine Sulfate 5 mg/Ketorolac Tromethamine 30 mg/Ropivacaine 60 ml/Epinephrine HCl 0.5 mg/Sodium Chloride 100 ml @ 100 mls/hr 1X ONCE INT ART ; Start 06/12/20 at 06:00; Stop 06/12/20 at 06:59 Amlodipine Besylate (Norvasc) 5 mg DAILY PO Last administered on 06/11/20at 18: 47; Start 06/11/20 at 18:00 Levothyroxine Sodium (Synthroid) 100 mcg DAILYAC PO ; Start 06/12/20 at 07:30 Active Scripts Active Reported Wal-Zyr (Cetirizine HCl) 10 Mg Capsule 10 Mg PO PRN DAILY PRN Multi Vitamin Daily (Multivitamin) 1 Each Tablet 1.5 Each PO DAILY Calcitrate + Vit D Caplet (Calcium Citrate/Vitamin D3) 1 Each Tablet 1 Each PO DAILY Aspirin 81 Mg Tab.chew 81 Mg PO DAILY Levothyroxine Sodium 100 Mcg Tablet 100 Mcg PO DAILYAC Amlodipine Besylate 5 Mg Tablet 5 Mg PO DAILY Lisinopril 40 Mg Tablet 40 Mg PO DAILY Allergies Allergies: Coded Allergies: erythromycin base (Verified Allergy, Intermediate, 11/05/17) ROS General: No: Chills, Night Sweats, Fatigue, Malaise, Appetite, Other PSYCHOLOGICAL ROS: No: Anxiety, Behavioral Disorder, Concentration difficultie, Decreased libido, Depression, Disorientation, Hallucinations, Hostility, Irritablity, Memory difficulties, Mood Swings, Obsessive thoughts, Physical abuse, Sexual abuse, Sleep disturbances, Suicidal ideation, Other Eyes: No Blurry vision, No Decreased vision, No Double vision, No Dry eyes, No Excessive tearing, No Eye Pain, No Itchy Eyes, No Loss of vision, No Photophobia, No Scotomata, No Uses contacts, No Uses glasses, No Other Hematological and Lymphatic: No: Bleeding Problems, Blood Clots, Blood Transfusions, Brusing, Night Sweats, Pallor, Swollen Lymph Nodes, Other Respiratory: No: Cough, Hemoptysis, Orthopnea, Pleuritic Pain, Shortness of breath, SOB with excertion, Sputum Changes, Stridor, Tachypnea, Wheezing, Other Cardiovascular: No Chest Pain, No Palpitations, No Orthopnea, No Paroxysmal Noc. Dyspnea, No Edema, No Lt Headedness, No Other Gastrointestinal: No Nausea, No Vomiting, No Abdominal Pain, No Diarrhea, No Constipation, No Melena, No Hematochezia, No Other Genitourinary: No Dysuria, No Frequency, No Incontinence, No Hematuria, No Retention, No Discharge, No Urgency, No Pain, No Flank Pain, No Other, No , No , No , No , No , No , No Musculoskeletal: Yes Gait Disturbance, Yes Joint Pain, Yes Joint Stiffness Neurological: No Behavorial Changes, No Bowel/Bladder ControlChng, No Confusion, No Dizziness, No Headaches, No Impaired Coord/balance, No Memory Loss, No Numbness/Tingling, No Seizures, No Speech Problems, No Tremors, No Visual Changes, No Weakness, No Other Skin: No Dry Skin, No Eczema, No Hair Changes, No Lumps, No Mole Changes, No Mottling, No Nail Changes, No Pruritus, No Rash, No Skin Lesion Changes, No Other, No Acne Physical Exam General: Alert, mild distress HEENT: PERRLA, Mucous membr. moist/pink Lungs: Normal air movement Heart: S1S2, no gallops, no murmurs Extremities: No cyanosis, No edema, Normal pulses Skin: No breakdown, No significant lesion Neuro: Sensation intact, Cranial nerves 3-12 NL Psych/Mental Status: Mood NL Vitals Vitals Vital Signs Date Time Temp Pulse Resp B/P (MAP) Pulse Ox O2 Delivery O2 Flow Rate FiO2 06/11/20 18:49 Room Air 06/11/20 18:47 61 156/46 06/11/20 16:45 98.0 18 94 98.0 Labs Labs Laboratory Tests Test 06/11/20 14:05 06/11/20 15:25 06/11/20 15:44 White Blood Count 14.2 x10^3/uL (4.0-11.0) Red Blood Count 3.87 x10^6/uL (3.50-5.40) Hemoglobin 12.6 g/dL (12.0-15.5) Hematocrit 37.6 % (36.0-47.0) Mean Corpuscular Volume 97 fL (79-100) Mean Corpuscular Hemoglobin 33 pg (25-35) Mean Corpuscular Hemoglobin Concent 33 g/dL (31-37) Red Cell Distribution Width 14.4 % (11.5-14.5) Platelet Count 274 x10^3/uL (140-400) Neutrophils (%) (Auto) 84 % (31-73) Lymphocytes (%) (Auto) 9 % (24-48) Monocytes (%) (Auto) 7 % (0-9) Eosinophils (%) (Auto) 1 % (0-3) Basophils (%) (Auto) 1 % (0-3) Neutrophils # (Auto) 11.9 x10^3/uL (1.8-7.7) Lymphocytes # (Auto) 1.2 x10^3/uL (1.0-4.8) Monocytes # (Auto) 0.9 x10^3/uL (0.0-1.1) Eosinophils # (Auto) 0.1 x10^3/uL (0.0-0.7) Basophils # (Auto) 0.1 x10^3/uL (0.0-0.2) Prothrombin Time 11.6 SEC (11.7-14.0) Prothromb Time International Ratio 0.9 (0.8-1.1) Activated Partial Thromboplast Time 22 SEC (24-38) Sodium Level 140 mmol/L (136-145) Potassium Level 5.1 mmol/L (3.5-5.1) Chloride Level 104 mmol/L (98-107) Carbon Dioxide Level 29 mmol/L (21-32) Anion Gap 7 (6-14) Blood Urea Nitrogen 11 mg/dL (7-20) Creatinine 1.1 mg/dL (0.6-1.0) Estimated GFR (Cockcroft-Gault) 47.2 BUN/Creatinine Ratio 10 (6-20) Glucose Level 114 mg/dL (70-99) Calcium Level 9.1 mg/dL (8.5-10.1) Total Bilirubin 0.6 mg/dL (0.2-1.0) Aspartate Amino Transf (AST/SGOT) 23 U/L (15-37) Alanine Aminotransferase (ALT/SGPT) 27 U/L (14-59) Alkaline Phosphatase 118 U/L (46-116) Total Protein 6.4 g/dL (6.4-8.2) Albumin 3.3 g/dL (3.4-5.0) Albumin/Globulin Ratio 1.1 (1.0-1.7) SARS-CoV-2 Antigen (Rapid) Negative (NEGATIVE) Urine Collection Type U cath Urine Color Yellow Urine Clarity Clear Urine pH 5.5 (<5.0-8.0) Urine Specific [place] 1.020 (1.000-1.030) Urine Protein Negative mg/dL (NEG-TRACE) Urine Glucose (UA) Negative mg/dL (NEG) Urine Ketones (Stick) Negative mg/dL (NEG) Urine Blood Negative (NEG) Urine Nitrite Negative (NEG) Urine Bilirubin Negative (NEG) Urine Urobilinogen Dipstick 0.2 mg/dL (0.2 mg/dL) Urine Leukocyte Esterase Negative (NEG) Urine RBC 6-10 /HPF (0-2) Urine WBC 1-4 /HPF (0-4) Urine Bacteria 0 /HPF (0-FEW) Urine Hyaline Casts Moderate /HPF Urine Mucus Mod /LPF Laboratory Tests Test 06/11/20 14:05 06/11/20 15:25 06/11/20 15:44 White Blood Count 14.2 x10^3/uL (4.0-11.0) Red Blood Count 3.87 x10^6/uL (3.50-5.40) Hemoglobin 12.6 g/dL (12.0-15.5) Hematocrit 37.6 % (36.0-47.0) Mean Corpuscular Volume 97 fL (79-100) Mean Corpuscular Hemoglobin 33 pg (25-35) Mean Corpuscular Hemoglobin Concent 33 g/dL (31-37) Red Cell Distribution Width 14.4 % (11.5-14.5) Platelet Count 274 x10^3/uL (140-400) Neutrophils (%) (Auto) 84 % (31-73) Lymphocytes (%) (Auto) 9 % (24-48) Monocytes (%) (Auto) 7 % (0-9) Eosinophils (%) (Auto) 1 % (0-3) Basophils (%) (Auto) 1 % (0-3) Neutrophils # (Auto) 11.9 x10^3/uL (1.8-7.7) Lymphocytes # (Auto) 1.2 x10^3/uL (1.0-4.8) Monocytes # (Auto) 0.9 x10^3/uL (0.0-1.1) Eosinophils # (Auto) 0.1 x10^3/uL (0.0-0.7) Basophils # (Auto) 0.1 x10^3/uL (0.0-0.2) Prothrombin Time 11.6 SEC (11.7-14.0) Prothromb Time International Ratio 0.9 (0.8-1.1) Activated Partial Thromboplast Time 22 SEC (24-38) Sodium Level 140 mmol/L (136-145) Potassium Level 5.1 mmol/L (3.5-5.1) Chloride Level 104 mmol/L (98-107) Carbon Dioxide Level 29 mmol/L (21-32) Anion Gap 7 (6-14) Blood Urea Nitrogen 11 mg/dL (7-20) Creatinine 1.1 mg/dL (0.6-1.0) Estimated GFR (Cockcroft-Gault) 47.2 BUN/Creatinine Ratio 10 (6-20) Glucose Level 114 mg/dL (70-99) Calcium Level 9.1 mg/dL (8.5-10.1) Total Bilirubin 0.6 mg/dL (0.2-1.0) Aspartate Amino Transf (AST/SGOT) 23 U/L (15-37) Alanine Aminotransferase (ALT/SGPT) 27 U/L (14-59) Alkaline Phosphatase 118 U/L (46-116) Total Protein 6.4 g/dL (6.4-8.2) Albumin 3.3 g/dL (3.4-5.0) Albumin/Globulin Ratio 1.1 (1.0-1.7) SARS-CoV-2 Antigen (Rapid) Negative (NEGATIVE) Urine Collection Type U cath Urine Color Yellow Urine Clarity Clear Urine pH 5.5 (<5.0-8.0) Urine Specific [place] 1.020 (1.000-1.030) Urine Protein Negative mg/dL (NEG-TRACE) Urine Glucose (UA) Negative mg/dL (NEG) Urine Ketones (Stick) Negative mg/dL (NEG) Urine Blood Negative (NEG) Urine Nitrite Negative (NEG) Urine Bilirubin Negative (NEG) Urine Urobilinogen Dipstick 0.2 mg/dL (0.2 mg/dL) Urine Leukocyte Esterase Negative (NEG) Urine RBC 6-10 /HPF (0-2) Urine WBC 1-4 /HPF (0-4) Urine Bacteria 0 /HPF (0-FEW) Urine Hyaline Casts Moderate /HPF Urine Mucus Mod /LPF Images Images The bone density appears normal. An acute, comminuted intertrochanteric right hip fracture is identified. The femoral head is not dislocated. The distal femoral fracture fragment shows mild proximal override and medial displacement. The soft tissues show arterial vascular calcification. VTE Prophylaxis Ordered VTE Prophylaxis Devices: No VTE Pharmacological Prophylaxi: No Assessment/Plan Assessment/Plan fall, tripped by her dog acute right intertrochanteric right hip fracture htn, 3 agents, missed her norvasc today, hypothyroid admit, r./o COVID 19 only for pre-op, not under investigation ortho consult Justicifation of Admission Dx: Justifications for Admission: Justification of Admission Dx: Yes DINO GLASS MD Jun 11, 2020 19:12
--- NOTE | 2020-06-11 19:17 | EKG ---
[facility] [address] [place] [address] Test Date: 2020-06-11 Test Time: 13:50:45 Pat Name: JEMAL MONTES Department: Room: Gender: F Rn Occupational Health: : 1935 Requested By: KATARINA CHOWDHURY Order Number: [id number] Reading MD: Measurements Intervals [place] Rate: 63 P: 90 ND: 162 QRS: 6 QRSD: 82 T: 30 QT: 400 QTc: 412 Interpretive Statements SINUS ARRHYTHMIA QRS(T) CONTOUR ABNORMALITY CONSISTENT WITH ANTEROSEPTAL INFARCT AGE UNDETERMINED ABNORMAL ECG RI6.01 No previous ECG available for comparison
[2020-06-11] MEDS ORDERED: LISI-334 PO (21:18)
[2020-06-11] MEDS ORDERED: METO-239 PO (21:18)
[2020-06-11] MEDS ORDERED: ATOR40TA59 PO (21:18)
[2020-06-11 23:00] VITALS: BP 152/44
[2020-06-12] VITALS (13 sets, daily range): BP systolic 131–168; BP diastolic 39–58
[2020-06-12] MEDS ORDERED: MORPHINE SULFATE 5 MG, KETOROLAC 30MG VIAL 30 MG, ROPIVacaine 0.5% PF 60 ML, EPINEPHrin... INT ART ONE (06:00)
[2020-06-12] MEDS ORDERED: IV RINGERS,LACTATED 1000ML 1,000 ML IV SCH (07:00)
[2020-06-12] MEDS ORDERED: LIDOCAINE 1% PF 2 ML VIAL. ID PRN (07:00)
[2020-06-12] MEDS ORDERED: PROCHLORPERAZINE 10 MG/2 ML VIAL. IV PRN (07:00)
[2020-06-12] MEDS ORDERED: HYDROmorphone 2 MG/ML VIAL IV PRN (07:00)
[2020-06-12] MEDS ORDERED: fentaNYL PF VIAL 100 MCG/2 ML VIAL IV PRN (07:00)
[2020-06-12] MEDS ORDERED: ONDANSETRON PF 4 MG/2 ML VIAL. IV PRN (07:00)
[2020-06-12] MEDS: LEVOTHYROXINE 100 MCG TABLET PO SCH (07:30)
[2020-06-12] MEDS: amLODIPine BESYLATE 5 MG TABLET PO SCH ×2 (08:30→09:00)
[2020-06-12] MEDS: METOPROLOL SUCC 24HR ER 25 MG TAB.ER.24H. PO SCH (08:30)
[2020-06-12] MEDS: MORPHINE SULFATE 2 MG/ML VIAL. IV PRN ×3 (08:35→13:29)
[2020-06-12] MEDS ORDERED: ceFAZolin SODIUM IV Push 1 GM VIAL. IVP ONE (09:00)
--- NOTE | 2020-06-12 09:02 | PDOC2 ---
CONSULT Date of Consult Date of Consult DATE: 06/12/20 TIME: 08:59 Reason for Consult Reason for Consult: Right hip fracture Referring Physician Referring Physician: Jordan Identification/Chief Complaint Chief Complaint Right hip pain Source Source: Chart review, Patient History of Present Illness Reason for Visit: Patient is a very pleasant 85-year-old female who is a community ambulator and had a ground-level fall resulting in pain and inability to ambulate. She was brought in and found to have a right hip fracture. She is complaining of right hip pain, it is better at rest. Worse with any attempted movement. The pain does radiate down towards her knee. No prior history of any hip complaints. She denies any preceding symptoms that contributed to her fall. Past Medical History Cardiovascular: No pertinent hx Pulmonary: No pertinent hx Hepatobiliary: No pertinent hx Psych: No pertinent hx Musculoskeletal: low back pain Rheumatologic: No pertinent hx Infectious disease: No pertinent hx Renal/: No pertinent hx Family History Family History: No Significant Social History No ALCOHOL: none Current Problem List Problem List Problems Medical Problems: (1) Intertrochanteric fracture of right hip Status: Acute Current Medications Current Medications Current Medications Morphine Sulfate (Morphine Sulfate) 2 mg 1X ONCE IV Last administered on 06/11/20at 12:30; Start 06/11/20 at 12:30; Stop 06/11/20 at 12:31; Status DC Ondansetron HCl (Zofran) 4 mg 1X ONCE IVP Last administered on 06/11/20at 12:30; Start 06/11/20 at 12:30; Stop 06/11/20 at 12:31; Status DC Morphine Sulfate (Morphine Sulfate) 2 mg PRN Q2HR PRN IV PAIN Last administered on 06/12/20at 08:35; Start 06/11/20 at 14:15; Stop 06/12/20 at 14:14 Ondansetron HCl (Zofran) 4 mg PRN Q6HRS PRN IV NAUSEA/VOMITING; Start 06/12/20 at 07:00; Stop 06/13/20 at 06:59 Fentanyl Citrate (Fentanyl 2ml Vial) 25 mcg PRN Q5MIN PRN IV MILD PAIN 1-3; St art 06/12/20 at 07:00; Stop 06/13/20 at 06:59 Fentanyl Citrate (Fentanyl 2ml Vial) 50 mcg PRN Q5MIN PRN IV MODERATE TO SEVERE PAIN; Start 06/12/20 at 07:00; Stop 06/13/20 at 06:59 Morphine Sulfate (Morphine Sulfate) 1 mg PRN Q10MIN PRN IV SEVERE PAIN 7-10; Start 06/12/20 at 07:00; Stop 06/13/20 at 06:59 Ringer's Solution 1,000 ml @ 30 mls/hr Q24H IV ; Start 06/12/20 at 07:00; Stop 06/12/20 at 18:59 Lidocaine HCl (Xylocaine-Mpf 1% 2ml Vial) 2 ml PRN 1X PRN ID PRIOR TO IV START; Start 06/12/20 at 07:00; Stop 06/13/20 at 06:59 Hydromorphone HCl (Dilaudid) 0.5 mg PRN Q10MIN PRN IV SEV PAIN, Second choice; Start 06/12/20 at 07:00; Stop 06/13/20 at 06:59 Prochlorperazine Edisylate (Compazine) 5 mg PACU PRN PRN IV NAUSEA, MRX1; Start 06/12/20 at 07:00; Stop 06/13/20 at 06:59 Morphine Sulfate 5 mg/Ketorolac Tromethamine 30 mg/Ropivacaine 60 ml/Epinephrine HCl 0.5 mg/Sodium Chloride 100 ml @ 100 mls/hr 1X ONCE INT ART ; Start 06/12/20 at 06:00; Stop 06/12/20 at 06:59; Status DC Amlodipine Besylate (Norvasc) 5 mg DAILY PO Last administered on 06/12/20at 08:30; Start 06/11/20 at 18:00 Levothyroxine Sodium (Synthroid) 100 mcg DAILYAC PO ; Start 06/12/20 at 07:30 Metoprolol Succinate (Toprol Xl) 25 mg DAILY PO Last administered on 06/12/20at 08:30; Start 06/12/20 at 09:00 Active Scripts Active Reported Atorvastatin Calcium 40 Mg Tablet 40 Mg PO HS Lisinopril 20 Mg Tablet 20 Mg PO BID Metoprolol Succinate ( Xl ) (Metoprolol Succinate) 25 Mg Tab.er.24h 25 Mg PO BID Wal-Zyr (Cetirizine HCl) 10 Mg Capsule 10 Mg PO PRN DAILY PRN Multi Vitamin Daily (Multivitamin) 1 Each Tablet 1.5 Each PO DAILY Calcitrate + Vit D Caplet (Calcium Citrate/Vitamin D3) 1 Each Tablet 1 Each PO DAILY Aspirin 81 Mg Tab.chew 81 Mg PO DAILY Levothyroxine Sodium 100 Mcg Tablet 100 Mcg PO DAILYAC Amlodipine Besylate 5 Mg Tablet 5 Mg PO DAILY Lisinopril 40 Mg Tablet 40 Mg PO DAILY Allergies Allergies: Coded Allergies: erythromycin base (Verified Allergy, Intermediate, 11/05/17) ROS General: No: Chills, Night Sweats, Fatigue, Malaise, Appetite, Other PSYCHOLOGICAL ROS: No: Anxiety, Behavioral Disorder, Concentration difficultie, Decreased libido, Depression, Disorientation, Hallucinations, Hostility, Irritablity, Memory difficulties, Mood Swings, Obsessive thoughts, Physical abuse, Sexual abuse, Sleep disturbances, Suicidal ideation, Other Eyes: No Blurry vision, No Decreased vision, No Double vision, No Dry eyes, No Excessive tearing, No Eye Pain, No Itchy Eyes, No Loss of vision, No Photophobia, No Scotomata, No Uses contacts, No Uses glasses, No Other HEENT: No: Heacaches, Visual Changes, Hearing change, Nasal congestion, Nasal discharge, Oral lesions, Sinus pain, Sore Throat, Epistaxis, Sneezing, Snoring, Tinnitus, Vertigo, Vocal changes, Other ALLERGY AND IMMUNOLOGY: No: Hives, Insect Bite Sensitivity, Itchy/Watery Eyes, Nasal Congestion, Post Nasal Drip, Seasonal Allergies, Other Hematological and Lymphatic: No: Bleeding Problems, Blood Clots, Blood Transfusions, Brusing, Night Sweats, Pallor, Swollen Lymph Nodes, Other ENDOCRINE: No: Breast Changes, Galactorrhea, Hair Pattern Changes, Hot Flashes, Malaise/lethargy, Mood Swings, Palpitations, Polydipsia/polyuria, Skin Changes, Temperature Intolerance, Unexpected Weight Changes, Other Respiratory: No: Cough, Hemoptysis, Orthopnea, Pleuritic Pain, Shortness of breath, SOB with excertion, Sputum Changes, Stridor, Tachypnea, Wheezing, Other Cardiovascular: No Chest Pain, No Palpitations, No Orthopnea, No Paroxysmal Noc. Dyspnea, No Edema, No Lt Headedness, No Other Gastrointestinal: No Nausea, No Vomiting, No Abdominal Pain, No Diarrhea, No Constipation, No Melena, No Hematochezia, No Other Genitourinary: No Dysuria, No Frequency, No Incontinence, No Hematuria, No Retention, No Discharge, No Urgency, No Pain, No Flank Pain, No Other, No , No , No , No , No , No , No Musculoskeletal: Yes Joint Pain, Yes Muscle Pain Neurological: No Behavorial Changes, No Bowel/Bladder ControlChng, No Confusion, No Dizziness, No Gait Disturbance, No Headaches, No Impaired Coord/balance, No Memory Loss, No Numbness/Tingling, No Seizures, No Speech Problems, No Tremors, No Visual Changes, No Weakness, No Other Skin: No Dry Skin, No Eczema, No Hair Changes, No Lumps, No Mole Changes, No Mottling, No Nail Changes, No Pruritus, No Rash, No Skin Lesion Changes, No Other, No Acne Physical Exam General: Alert, Oriented X3, No acute distress HEENT: Atraumatic, EOMI Lungs: Other (Respirations are unlabored with symmetric chest rise) Heart: Regular rate Abdomen: Soft, No tenderness Extremities: No edema, Normal pulses Skin: No rashes Neuro: Normal speech, Strength at 5/5 X4 ext, Sensation intact Psych/Mental Status: Mental status NL, Mood NL MUSCULOSKELETAL: Other (She has swelling and fullness around her right proximal thigh. Right lower extremity slightly shorter. She can wiggle her toes distally. Toes are warm.) Vitals VITALS Vital Signs Date Time Temp Pulse Resp B/P (MAP) Pulse Ox O2 Delivery O2 Flow Rate FiO2 06/12/20 08:35 Room Air 06/12/20 08:30 71 150/46 06/12/20 07:00 98.7 16 93 98.7 Labs Labs Laboratory Tests Test 06/11/20 14:05 06/11/20 15:25 06/11/20 15:44 White Blood Count 14.2 x10^3/uL (4.0-11.0) Red Blood Count 3.87 x10^6/uL (3.50-5.40) Hemoglobin 12.6 g/dL (12.0-15.5) Hematocrit 37.6 % (36.0-47.0) Mean Corpuscular Volume 97 fL (79-100) Mean Corpuscular Hemoglobin 33 pg (25-35) Mean Corpuscular Hemoglobin Concent 33 g/dL (31-37) Red Cell Distribution Width 14.4 % (11.5-14.5) Platelet Count 274 x10^3/uL (140-400) Neutrophils (%) (Auto) 84 % (31-73) Lymphocytes (%) (Auto) 9 % (24-48) Monocytes (%) (Auto) 7 % (0-9) Eosinophils (%) (Auto) 1 % (0-3) Basophils (%) (Auto) 1 % (0-3) Neutrophils # (Auto) 11.9 x10^3/uL (1.8-7.7) Lymphocytes # (Auto) 1.2 x10^3/uL (1.0-4.8) Monocytes # (Auto) 0.9 x10^3/uL (0.0-1.1) Eosinophils # (Auto) 0.1 x10^3/uL (0.0-0.7) Basophils # (Auto) 0.1 x10^3/uL (0.0-0.2) Prothrombin Time 11.6 SEC (11.7-14.0) Prothromb Time International Ratio 0.9 (0.8-1.1) Activated Partial Thromboplast Time 22 SEC (24-38) Sodium Level 140 mmol/L (136-145) Potassium Level 5.1 mmol/L (3.5-5.1) Chloride Level 104 mmol/L (98-107) Carbon Dioxide Level 29 mmol/L (21-32) Anion Gap 7 (6-14) Blood Urea Nitrogen 11 mg/dL (7-20) Creatinine 1.1 mg/dL (0.6-1.0) Estimated GFR (Cockcroft-Gault) 47.2 BUN/Creatinine Ratio 10 (6-20) Glucose Level 114 mg/dL (70-99) Calcium Level 9.1 mg/dL (8.5-10.1) Total Bilirubin 0.6 mg/dL (0.2-1.0) Aspartate Amino Transf (AST/SGOT) 23 U/L (15-37) Alanine Aminotransferase (ALT/SGPT) 27 U/L (14-59) Alkaline Phosphatase 118 U/L (46-116) Total Protein 6.4 g/dL (6.4-8.2) Albumin 3.3 g/dL (3.4-5.0) Albumin/Globulin Ratio 1.1 (1.0-1.7) SARS-CoV-2 Antigen (Rapid) Negative (NEGATIVE) Urine Collection Type U cath Urine Color Yellow Urine Clarity Clear Urine pH 5.5 (<5.0-8.0) Urine Specific [place] 1.020 (1.000-1.030) Urine Protein Negative mg/dL (NEG-TRACE) Urine Glucose (UA) Negative mg/dL (NEG) Urine Ketones (Stick) Negative mg/dL (NEG) Urine Blood Negative (NEG) Urine Nitrite Negative (NEG) Urine Bilirubin Negative (NEG) Urine Urobilinogen Dipstick 0.2 mg/dL (0.2 mg/dL) Urine Leukocyte Esterase Negative (NEG) Urine RBC 6-10 /HPF (0-2) Urine WBC 1-4 /HPF (0-4) Urine Bacteria 0 /HPF (0-FEW) Urine Hyaline Casts Moderate /HPF Urine Mucus Mod /LPF Laboratory Tests Test 06/11/20 14:05 06/11/20 15:25 06/11/20 15:44 White Blood Count 14.2 x10^3/uL (4.0-11.0) Red Blood Count 3.87 x10^6/uL (3.50-5.40) Hemoglobin 12.6 g/dL (12.0-15.5) Hematocrit 37.6 % (36.0-47.0) Mean Corpuscular Volume 97 fL (79-100) Mean Corpuscular Hemoglobin 33 pg (25-35) Mean Corpuscular Hemoglobin Concent 33 g/dL (31-37) Red Cell Distribution Width 14.4 % (11.5-14.5) Platelet Count 274 x10^3/uL (140-400) Neutrophils (%) (Auto) 84 % (31-73) Lymphocytes (%) (Auto) 9 % (24-48) Monocytes (%) (Auto) 7 % (0-9) Eosinophils (%) (Auto) 1 % (0-3) Basophils (%) (Auto) 1 % (0-3) Neutrophils # (Auto) 11.9 x10^3/uL (1.8-7.7) Lymphocytes # (Auto) 1.2 x10^3/uL (1.0-4.8) Monocytes # (Auto) 0.9 x10^3/uL (0.0-1.1) Eosinophils # (Auto) 0.1 x10^3/uL (0.0-0.7) Basophils # (Auto) 0.1 x10^3/uL (0.0-0.2) Prothrombin Time 11.6 SEC (11.7-14.0) Prothromb Time International Ratio 0.9 (0.8-1.1) Activated Partial Thromboplast Time 22 SEC (24-38) Sodium Level 140 mmol/L (136-145) Potassium Level 5.1 mmol/L (3.5-5.1) Chloride Level 104 mmol/L (98-107) Carbon Dioxide Level 29 mmol/L (21-32) Anion Gap 7 (6-14) Blood Urea Nitrogen 11 mg/dL (7-20) Creatinine 1.1 mg/dL (0.6-1.0) Estimated GFR (Cockcroft-Gault) 47.2 BUN/Creatinine Ratio 10 (6-20) Glucose Level 114 mg/dL (70-99) Calcium Level 9.1 mg/dL (8.5-10.1) Total Bilirubin 0.6 mg/dL (0.2-1.0) Aspartate Amino Transf (AST/SGOT) 23 U/L (15-37) Alanine Aminotransferase (ALT/SGPT) 27 U/L (14-59) Alkaline Phosphatase 118 U/L (46-116) Total Protein 6.4 g/dL (6.4-8.2) Albumin 3.3 g/dL (3.4-5.0) Albumin/Globulin Ratio 1.1 (1.0-1.7) SARS-CoV-2 Antigen (Rapid) Negative (NEGATIVE) Urine Collection Type U cath Urine Color Yellow Urine Clarity Clear Urine pH 5.5 (<5.0-8.0) Urine Specific [place] 1.020 (1.000-1.030) Urine Protein Negative mg/dL (NEG-TRACE) Urine Glucose (UA) Negative mg/dL (NEG) Urine Ketones (Stick) Negative mg/dL (NEG) Urine Blood Negative (NEG) Urine Nitrite Negative (NEG) Urine Bilirubin Negative (NEG) Urine Urobilinogen Dipstick 0.2 mg/dL (0.2 mg/dL) Urine Leukocyte Esterase Negative (NEG) Urine RBC 6-10 /HPF (0-2) Urine WBC 1-4 /HPF (0-4) Urine Bacteria 0 /HPF (0-FEW) Urine Hyaline Casts Moderate /HPF Urine Mucus Mod /LPF Images Images Hip and pelvis and femur x-rays were interpreted by myself. Report is reviewed. She has a reverse obliquity type proximal femur fracture. Assessment/Plan Assessment/Plan Right proximal femoral fracture. I did discuss proceeding with surgery in the form of a long intramedullary nail with the patient and discussed the risks, benefits, and alternatives. Her questions were answered. We will plan on proceeding with surgery later today. KATELYN CHAVEZ II, MD Jun 12, 2020 09:01
[2020-06-12] MEDS ORDERED: LIDOCAINE 2% PF 5 ML VIAL. ONE (09:11)
[2020-06-12] MEDS ORDERED: fentaNYL PF VIAL 100 MCG/2 ML VIAL ONE ×2 (09:11→12:55)
[2020-06-12] MEDS ORDERED: PROPOFOL 10 MG/ML (20ML) VIAL. IV ONE (09:11)
--- NOTE | 2020-06-12 11:05 | NUR ---
SW following. Discussed with RN, pt from home alone. Pt having surgery today. PT/OT to see pt after surgery. Per RN, pt is wanting to discharge home today after surgery. SW will continue to follow.
[2020-06-12] MEDS ORDERED: ONDANSETRON PF 4 MG/2 ML VIAL. ONE (11:20)
[2020-06-12] MEDS ORDERED: DEXAMETHASONE SOD PHOS 4 MG/ML VIAL ONE (11:20)
[2020-06-12] MEDS ORDERED: DESFLURANE 61 TO 120 MINUTES IH ONE (11:20)
[2020-06-12] MEDS ORDERED: GLYCOPYRROLATE 1 MG/5 ML VIAL. ONE (11:27)
--- NOTE | 2020-06-12 12:51 | PDOC ---
PROGRESS NOTES Chief Complaint Chief Complaint fall, tripped by her dog acute right intertrochanteric right hip fracture htn, 3 agents, hypothyroid History of Present Illness History of Present Illness pt OK, still in a lot of pain this AM to OR this AM Dr. Huber to follow cont current Vitals Vitals Vital Signs Date Time Temp Pulse Resp B/P (MAP) Pulse Ox O2 Delivery O2 Flow Rate FiO2 06/12/20 12:44 96 16 181/54 100 Simple Mask 10 06/12/20 12:29 97.8 97.8 Physical Exam General: Alert, Oriented X3, No acute distress Heart: Regular rate Abdomen: Soft, No tenderness Extremities: No edema, Normal pulses Skin: No rashes Labs LABS Laboratory Tests Test 06/11/20 14:05 06/11/20 15:25 06/11/20 15:44 White Blood Count 14.2 x10^3/uL (4.0-11.0) Red Blood Count 3.87 x10^6/uL (3.50-5.40) Hemoglobin 12.6 g/dL (12.0-15.5) Hematocrit 37.6 % (36.0-47.0) Mean Corpuscular Volume 97 fL (79-100) Mean Corpuscular Hemoglobin 33 pg (25-35) Mean Corpuscular Hemoglobin Concent 33 g/dL (31-37) Red Cell Distribution Width 14.4 % (11.5-14.5) Platelet Count 274 x10^3/uL (140-400) Neutrophils (%) (Auto) 84 % (31-73) Lymphocytes (%) (Auto) 9 % (24-48) Monocytes (%) (Auto) 7 % (0-9) Eosinophils (%) (Auto) 1 % (0-3) Basophils (%) (Auto) 1 % (0-3) Neutrophils # (Auto) 11.9 x10^3/uL (1.8-7.7) Lymphocytes # (Auto) 1.2 x10^3/uL (1.0-4.8) Monocytes # (Auto) 0.9 x10^3/uL (0.0-1.1) Eosinophils # (Auto) 0.1 x10^3/uL (0.0-0.7) Basophils # (Auto) 0.1 x10^3/uL (0.0-0.2) Prothrombin Time 11.6 SEC (11.7-14.0) Prothromb Time International Ratio 0.9 (0.8-1.1) Activated Partial Thromboplast Time 22 SEC (24-38) Sodium Level 140 mmol/L (136-145) Potassium Level 5.1 mmol/L (3.5-5.1) Chloride Level 104 mmol/L (98-107) Carbon Dioxide Level 29 mmol/L (21-32) Anion Gap 7 (6-14) Blood Urea Nitrogen 11 mg/dL (7-20) Creatinine 1.1 mg/dL (0.6-1.0) Estimated GFR (Cockcroft-Gault) 47.2 BUN/Creatinine Ratio 10 (6-20) Glucose Level 114 mg/dL (70-99) Calcium Level 9.1 mg/dL (8.5-10.1) Total Bilirubin 0.6 mg/dL (0.2-1.0) Aspartate Amino Transf (AST/SGOT) 23 U/L (15-37) Alanine Aminotransferase (ALT/SGPT) 27 U/L (14-59) Alkaline Phosphatase 118 U/L (46-116) Total Protein 6.4 g/dL (6.4-8.2) Albumin 3.3 g/dL (3.4-5.0) Albumin/Globulin Ratio 1.1 (1.0-1.7) SARS-CoV-2 Antigen (Rapid) Negative (NEGATIVE) Urine Collection Type U cath Urine Color Yellow Urine Clarity Clear Urine pH 5.5 (<5.0-8.0) Urine Specific [place] 1.020 (1.000-1.030) Urine Protein Negative mg/dL (NEG-TRACE) Urine Glucose (UA) Negative mg/dL (NEG) Urine Ketones (Stick) Negative mg/dL (NEG) Urine Blood Negative (NEG) Urine Nitrite Negative (NEG) Urine Bilirubin Negative (NEG) Urine Urobilinogen Dipstick 0.2 mg/dL (0.2 mg/dL) Urine Leukocyte Esterase Negative (NEG) Urine RBC 6-10 /HPF (0-2) Urine WBC 1-4 /HPF (0-4) Urine Bacteria 0 /HPF (0-FEW) Urine Hyaline Casts Moderate /HPF Urine Mucus Mod /LPF Assessment and Plan Assessmemt and Plan Problems Medical Problems: (1) Intertrochanteric fracture of right hip Status: Acute Comment Review of Relevant I have reviewed the following items kiran (where applicable) has been applied. Labs Laboratory Tests Test 06/11/20 14:05 06/11/20 15:25 06/11/20 15:44 White Blood Count 14.2 x10^3/uL (4.0-11.0) Red Blood Count 3.87 x10^6/uL (3.50-5.40) Hemoglobin 12.6 g/dL (12.0-15.5) Hematocrit 37.6 % (36.0-47.0) Mean Corpuscular Volume 97 fL (79-100) Mean Corpuscular Hemoglobin 33 pg (25-35) Mean Corpuscular Hemoglobin Concent 33 g/dL (31-37) Red Cell Distribution Width 14.4 % (11.5-14.5) Platelet Count 274 x10^3/uL (140-400) Neutrophils (%) (Auto) 84 % (31-73) Lymphocytes (%) (Auto) 9 % (24-48) Monocytes (%) (Auto) 7 % (0-9) Eosinophils (%) (Auto) 1 % (0-3) Basophils (%) (Auto) 1 % (0-3) Neutrophils # (Auto) 11.9 x10^3/uL (1.8-7.7) Lymphocytes # (Auto) 1.2 x10^3/uL (1.0-4.8) Monocytes # (Auto) 0.9 x10^3/uL (0.0-1.1) Eosinophils # (Auto) 0.1 x10^3/uL (0.0-0.7) Basophils # (Auto) 0.1 x10^3/uL (0.0-0.2) Prothrombin Time 11.6 SEC (11.7-14.0) Prothromb Time International Ratio 0.9 (0.8-1.1) Activated Partial Thromboplast Time 22 SEC (24-38) Sodium Level 140 mmol/L (136-145) Potassium Level 5.1 mmol/L (3.5-5.1) Chloride Level 104 mmol/L (98-107) Carbon Dioxide Level 29 mmol/L (21-32) Anion Gap 7 (6-14) Blood Urea Nitrogen 11 mg/dL (7-20) Creatinine 1.1 mg/dL (0.6-1.0) Estimated GFR (Cockcroft-Gault) 47.2 BUN/Creatinine Ratio 10 (6-20) Glucose Level 114 mg/dL (70-99) Calcium Level 9.1 mg/dL (8.5-10.1) Total Bilirubin 0.6 mg/dL (0.2-1.0) Aspartate Amino Transf (AST/SGOT) 23 U/L (15-37) Alanine Aminotransferase (ALT/SGPT) 27 U/L (14-59) Alkaline Phosphatase 118 U/L (46-116) Total Protein 6.4 g/dL (6.4-8.2) Albumin 3.3 g/dL (3.4-5.0) Albumin/Globulin Ratio 1.1 (1.0-1.7) SARS-CoV-2 Antigen (Rapid) Negative (NEGATIVE) Urine Collection Type U cath Urine Color Yellow Urine Clarity Clear Urine pH 5.5 (<5.0-8.0) Urine Specific [place] 1.020 (1.000-1.030) Urine Protein Negative mg/dL (NEG-TRACE) Urine Glucose (UA) Negative mg/dL (NEG) Urine Ketones (Stick) Negative mg/dL (NEG) Urine Blood Negative (NEG) Urine Nitrite Negative (NEG) Urine Bilirubin Negative (NEG) Urine Urobilinogen Dipstick 0.2 mg/dL (0.2 mg/dL) Urine Leukocyte Esterase Negative (NEG) Urine RBC 6-10 /HPF (0-2) Urine WBC 1-4 /HPF (0-4) Urine Bacteria 0 /HPF (0-FEW) Urine Hyaline Casts Moderate /HPF Urine Mucus Mod /LPF Laboratory Tests Test 06/11/20 14:05 06/11/20 15:25 06/11/20 15:44 White Blood Count 14.2 x10^3/uL (4.0-11.0) Red Blood Count 3.87 x10^6/uL (3.50-5.40) Hemoglobin 12.6 g/dL (12.0-15.5) Hematocrit 37.6 % (36.0-47.0) Mean Corpuscular Volume 97 fL (79-100) Mean Corpuscular Hemoglobin 33 pg (25-35) Mean Corpuscular Hemoglobin Concent 33 g/dL (31-37) Red Cell Distribution Width 14.4 % (11.5-14.5) Platelet Count 274 x10^3/uL (140-400) Neutrophils (%) (Auto) 84 % (31-73) Lymphocytes (%) (Auto) 9 % (24-48) Monocytes (%) (Auto) 7 % (0-9) Eosinophils (%) (Auto) 1 % (0-3) Basophils (%) (Auto) 1 % (0-3) Neutrophils # (Auto) 11.9 x10^3/uL (1.8-7.7) Lymphocytes # (Auto) 1.2 x10^3/uL (1.0-4.8) Monocytes # (Auto) 0.9 x10^3/uL (0.0-1.1) Eosinophils # (Auto) 0.1 x10^3/uL (0.0-0.7) Basophils # (Auto) 0.1 x10^3/uL (0.0-0.2) Prothrombin Time 11.6 SEC (11.7-14.0) Prothromb Time International Ratio 0.9 (0.8-1.1) Activated Partial Thromboplast Time 22 SEC (24-38) Sodium Level 140 mmol/L (136-145) Potassium Level 5.1 mmol/L (3.5-5.1) Chloride Level 104 mmol/L (98-107) Carbon Dioxide Level 29 mmol/L (21-32) Anion Gap 7 (6-14) Blood Urea Nitrogen 11 mg/dL (7-20) Creatinine 1.1 mg/dL (0.6-1.0) Estimated GFR (Cockcroft-Gault) 47.2 BUN/Creatinine Ratio 10 (6-20) Glucose Level 114 mg/dL (70-99) Calcium Level 9.1 mg/dL (8.5-10.1) Total Bilirubin 0.6 mg/dL (0.2-1.0) Aspartate Amino Transf (AST/SGOT) 23 U/L (15-37) Alanine Aminotransferase (ALT/SGPT) 27 U/L (14-59) Alkaline Phosphatase 118 U/L (46-116) Total Protein 6.4 g/dL (6.4-8.2) Albumin 3.3 g/dL (3.4-5.0) Albumin/Globulin Ratio 1.1 (1.0-1.7) SARS-CoV-2 Antigen (Rapid) Negative (NEGATIVE) Urine Collection Type U cath Urine Color Yellow Urine Clarity Clear Urine pH 5.5 (<5.0-8.0) Urine Specific [place] 1.020 (1.000-1.030) Urine Protein Negative mg/dL (NEG-TRACE) Urine Glucose (UA) Negative mg/dL (NEG) Urine Ketones (Stick) Negative mg/dL (NEG) Urine Blood Negative (NEG) Urine Nitrite Negative (NEG) Urine Bilirubin Negative (NEG) Urine Urobilinogen Dipstick 0.2 mg/dL (0.2 mg/dL) Urine Leukocyte Esterase Negative (NEG) Urine RBC 6-10 /HPF (0-2) Urine WBC 1-4 /HPF (0-4) Urine Bacteria 0 /HPF (0-FEW) Urine Hyaline Casts Moderate /HPF Urine Mucus Mod /LPF Medications Current Medications Morphine Sulfate (Morphine Sulfate) 2 mg 1X ONCE IV Last administered on 06/11/20at 12:30; Start 06/11/20 at 12:30; Stop 06/11/20 at 12:31; Status DC Ondansetron HCl (Zofran) 4 mg 1X ONCE IVP Last administered on 06/11/20at 12:30; Start 06/11/20 at 12:30; Stop 06/11/20 at 12:31; Status DC Morphine Sulfate (Morphine Sulfate) 2 mg PRN Q2HR PRN IV PAIN Last administered on 06/12/20at 08:35; Start 06/11/20 at 14:15; Stop 06/12/20 at 14:14 Ondansetron HCl (Zofran) 4 mg PRN Q6HRS PRN IV NAUSEA/VOMITING; Start 06/12/20 at 07:00; Stop 06/13/20 at 06:59 Fentanyl Citrate (Fentanyl 2ml Vial) 25 mcg PRN Q5MIN PRN IV MILD PAIN 1-3; Start 06/12/20 at 07:00; Stop 06/13/20 at 06:59 Fentanyl Citrate (Fentanyl 2ml Vial) 50 mcg PRN Q5MIN PRN IV MODERATE TO SEVERE PAIN; Start 06/12/20 at 07:00; Stop 06/13/20 at 06:59 Morphine Sulfate (Morphine Sulfate) 1 mg PRN Q10MIN PRN IV SEVERE PAIN 7-10; Start 06/12/20 at 07:00; Stop 06/13/20 at 06:59 Ringer's Solution 1,000 ml @ 30 mls/hr Q24H IV Last administered on 06/12/20at 10:32; Start 06/12/20 at 07:00; Stop 06/12/20 at 18:59 Lidocaine HCl (Xylocaine-Mpf 1% 2ml Vial) 2 ml PRN 1X PRN ID PRIOR TO IV START; Start 06/12/20 at 07:00; Stop 06/13/20 at 06:59 Hydromorphone HCl (Dilaudid) 0.5 mg PRN Q10MIN PRN IV SEV PAIN, Second choice; Start 06/12/20 at 07:00; Stop 06/13/20 at 06:59 Prochlorperazine Edisylate (Compazine) 5 mg PACU PRN PRN IV NAUSEA, MRX1; Start 06/12/20 at 07:00; Stop 06/13/20 at 06:59 Morphine Sulfate 5 mg/Ketorolac Tromethamine 30 mg/Ropivacaine 60 ml/Epinephrine HCl 0.5 mg/Sodium Chloride 100 ml @ 100 mls/hr 1X ONCE INT ART Last administered on 06/12/20at 11:28; Start 06/12/20 at 06:00; Stop 06/12/20 at 06:59; Status DC Amlodipine Besylate (Norvasc) 5 mg DAILY PO Last administered on 06/12/20at 08:30; Start 06/11/20 at 18:00 Levothyroxine Sodium (Synthroid) 100 mcg DAILYAC PO ; Start 06/12/20 at 07:30 Metoprolol Succinate (Toprol Xl) 25 mg DAILY PO Last administered on 06/12/20at 08:30; Start 06/12/20 at 09:00 Cefazolin Sodium (Ancef) 1 gm 1X ONCE IVP Last administered on 06/12/20at 11:03; Start 06/12/20 at 09:00; Stop 06/12/20 at 09:08; Status DC Propofol (Diprivan) 200 mg STK-MED ONCE IV ; Start 06/12/20 at 09:11; Stop 06/12/20 at 09:12; Status DC Lidocaine HCl (Lidocaine Pf 2% Vial) 5 ml STK-MED ONCE .ROUTE ; Start 06/12/20 at 09:11; Stop 06/12/20 at 09:12; Status DC Fentanyl Citrate (Fentanyl 2ml Vial) 100 mcg STK-MED ONCE .ROUTE ; Start 06/12/20 at 09:11; Stop 06/12/20 at 09:12; Status DC Dexamethasone Sodium Phosphate (Decadron) 4 mg STK-MED ONCE .ROUTE ; Start 06/12/20 at 11:20; Stop 06/12/20 at 11:20; Status DC Ondansetron HCl (Zofran) 4 mg STK-MED ONCE .ROUTE ; Start 06/12/20 at 11:20; Stop 06/12/20 at 11:21; Status DC Desflurane (Suprane) 60 ml STK-MED ONCE IH ; Start 06/12/20 at 11:20; Stop 06/12/20 at 11:21; Status DC Glycopyrrolate (Robinul) 1 mg STK-MED ONCE .ROUTE ; Start 06/12/20 at 11:27; Stop 06/12/20 at 11:28; Status DC Active Scripts Active Reported Atorvastatin Calcium 40 Mg Tablet 40 Mg PO HS Lisinopril 20 Mg Tablet 20 Mg PO BID Metoprolol Succinate ( Xl ) (Metoprolol Succinate) 25 Mg Tab.er.24h 25 Mg PO BID Wal-Zyr (Cetirizine HCl) 10 Mg Capsule 10 Mg PO PRN DAILY PRN Multi Vitamin Daily (Multivitamin) 1 Each Tablet 1.5 Each PO DAILY Calcitrate + Vit D Caplet (Calcium Citrate/Vitamin D3) 1 Each Tablet 1 Each PO DAILY Aspirin 81 Mg Tab.chew 81 Mg PO DAILY Levothyroxine Sodium 100 Mcg Tablet 100 Mcg PO DAILYAC Amlodipine Besylate 5 Mg Tablet 5 Mg PO DAILY Lisinopril 40 Mg Tablet 40 Mg PO DAILY Vitals/I & O Vital Sign - Last 24 Hours 06/11/20 06/11/20 06/11/20 06/11/20 15:32 16:00 16:45 18:47 Temp 98.0 98.0 Pulse 70 58 61 61 Resp 18 B/P (MAP) 180/72 (108) 169/72 (104) 156/46 (82) 156/46 Pulse Ox 98 98 94 O2 Delivery Room Air Room Air Room Air 06/11/20 06/11/20 06/11/20 06/11/20 18:49 19:00 19:19 20:00 Temp 97.6 97.6 Pulse 60 Resp 18 B/P (MAP) 104/53 (70) Pulse Ox 96 O2 Delivery Room Air Room Air Room Air Room Air 06/11/20 06/12/20 06/12/20 06/12/20 23:00 03:00 07:00 08:00 Temp 97.8 98.8 98.7 97.8 98.8 98.7 Pulse 59 55 71 Resp 18 18 16 B/P (MAP) 152/44 (80) 152/42 (78) 150/46 (80) Pulse Ox 95 95 93 O2 Delivery Room Air Room Air Room Air Room Air 06/12/20 06/12/20 06/12/20 06/12/20 08:30 08:30 08:35 09:05 Pulse 71 71 B/P (MAP) 150/46 150/46 O2 Delivery Room Air Room Air 06/12/20 06/12/20 06/12/20 06/12/20 10:08 12:29 12:29 12:44 Temp 98.4 97.8 98.4 97.8 Pulse 68 108 96 Resp 20 16 16 B/P (MAP) 182/75 181/59 181/54 Pulse Ox 95 100 100 O2 Delivery Room Air Mask Simple Mask Simple Mask O2 Flow Rate 10 10 10 Intake and Output 06/11/20 06/11/20 06/12/20 15:00 23:00 07:00 Intake Total 290 ml Output Total 450 ml Balance -160 ml Justicifation of Admission Dx: Justifications for Admission: Justification of Admission Dx: Yes DINO GLASS MD Jun 12, 2020 12:51
[2020-06-12] MEDS: fentaNYL PF VIAL 100 MCG/2 ML VIAL IV PRN ×2 (12:58→13:04)
[2020-06-12] MEDS ORDERED: MORPHINE SULFATE 2 MG/ML VIAL. ONE (13:14)
--- NOTE | 2020-06-12 14:56 | PDOC4 ---
Operative Note Operative Note Date of procedure: 06/12/2020 Surgeon: Rojelio Chavez Investor Relations Coordinator: Trav Cooley Preoperative diagnosis: Closed right proximal femoral fracture Postoperative diagnosis: Same Procedure performed: Closed reduction intramedullary nailing right proximal femur fracture Anesthesia: General Findings: Acute fracture Complications: None Blood loss: 100 mL Components inserted: [employer] InterTAN nail, 10 x 36, 130 degrees right, 100 mm lag screw, 95 mm compression screw, 2 distal interlocking screws Reason for procedure: Patient is a very pleasant 85-year-old who is normally able to ambulate independently and had a ground-level fall. Please see my consult note for further details. Given the reverse obliquity type nature of her fracture I discussed proceeding with a long intramedullary nail with her and after discussing the risks, benefits, and alternatives she elected to proceed. Description of procedure: Patient was greeted the preoperative area by myself where the correct extremity was verified and marked. She was taken to the operative suite and antibiotics were started as she was brought back. Once in the operating room she had successful induction of a general anesthetic and was transferred gently supine to the fracture table and secured to bed with all pressure points padded, a padded perineal post was used, left leg in a well leg dumont right leg in a traction ski boot. I then brought in C arm and perform a reduction maneuver confirming adequate reduction under biplanar fluoroscopy. We then proceeded prep and drape right hip and lower extremity in her usual sterile fashion including [place] at the periphery of the drapes. I then palpated marked surface anatomy, her ASIS and greater trochanter and made an incision at the intersection point of these. I bluntly dissected down to the tip of the greater trochanter palpated around and then used biplanar fluoroscopy to achieve my starting point with my guidepin and advanced this down past the lesser trochanter followed by the entry reamer, and graduate assistant athletic trainer held pressure laterally and underneath the fracture. I then placed my long guidepin down confirming good position under biplanar fluoroscopy at hip and knee. I then measured for my nail. I then began reaming and reamed up to an which gave really good chatter starting in . I then impacted my long nail and position using fluoroscopy to guide me. I then used fluoroscopy to guide me into as close of a center center position as I was able to achieve. It should be noted while reaming and impacted my nail and position graduate assistant athletic trainer was still holding elevation at the fracture site and pressure laterally. After this, I measured and then drilled the lateral cortex placed my derotation bar and then drilled for my lag screw and then placed my lag screw followed by compression screw. I then abducted the hip and used perfect council technique to place 2 distal interlocking screws. Traction was then released. We then took our final images and was satisfied with hardware position and fracture reduction. The wounds were then thoroughly irrigated out. Local anesthetic mixture was injected in the jack-incisional soft tissues. Inverted interrupted 2 oh is used for subcutaneous tissue with the distal interlocking screws followed by riri. Deep layers were closed with simple interrupted 0 Vicryl followed by inverted interrupted 2-0 Vicryl subcutaneous tissue and riri for skin followed by sterile dressing at all sites. Dressing was placed after the leg was cleansed and dried. Prior to wound closure, all counts correct x2. No complications. At the conclusion, she was laid gently supine on the fracture table and transferred on the spine to the hospital bed and taken to PACU in stable and extubated condition. Postoperative plan is to readmit her to the floor under the care of the hospitalist. She received PT OT, DVT and antibiotic prophylaxis. I will follow along. ROJELIO CHAVEZ II, MD Jun 12, 2020 14:55
[2020-06-12] MEDS: ceFAZolin SODIUM IV Push 1 GM VIAL. IVP SCH ×2 (18:55→23:00)
[2020-06-13 03:00] VITALS: BP 98/50
[2020-06-13 04:17] LABS: HEMATOCRIT 28.6 % (36.0-47.0); HEMOGLOBIN 9.6 g/dL (12.0-15.5); RED BLOOD COUNT 2.93 x10^6/uL (3.50-5.40); RED CELL DISTRIBUTION WIDTH 14.2 % (11.5-14.5); WHITE BLOOD COUNT 8.7 x10^3/uL (4.0-11.0)
[2020-06-13 04:38] LABS: CALCIUM 8.3 mg/dL (8.5-10.1); CREATININE 1.1 mg/dL (0.6-1.0); GFR 47.2; POTASSIUM 4.9 mmol/L (3.5-5.1)
[2020-06-13] MEDS: ceFAZolin SODIUM IV Push 1 GM VIAL. IVP SCH (05:00)
[2020-06-13 07:00] VITALS: BP 103/55
--- NOTE | 2020-06-13 08:54 | PDOC ---
ORTHO PROGRESS NOTES Subjective Her pain has been tolerable, no complaints this morning Vitals Vital Signs Date Time Temp Pulse Resp B/P (MAP) Pulse Ox O2 Delivery O2 Flow Rate FiO2 06/13/20 07:00 99.8 74 16 103/55 (71) 95 Nasal Cannula 99.8 06/12/20 13:19 10.0 Labs Laboratory Tests Test 06/11/20 14:05 06/11/20 15:25 06/11/20 15:44 06/13/20 03:45 White Blood Count 14.2 x10^3/uL (4.0-11.0) 8.7 x10^3/uL (4.0-11.0) Red Blood Count 3.87 x10^6/uL (3.50-5.40) 2.93 x10^6/uL (3.50-5.40) Hemoglobin 12.6 g/dL (12.0-15.5) 9.6 g/dL (12.0-15.5) Hematocrit 37.6 % (36.0-47.0) 28.6 % (36.0-47.0) Mean Corpuscular Volume 97 fL (79-100) 98 fL (79-100) Mean Corpuscular Hemoglobin 33 pg (25-35) 33 pg (25-35) Mean Corpuscular Hemoglobin Concent 33 g/dL (31-37) 34 g/dL (31-37) Red Cell Distribution Width 14.4 % (11.5-14.5) 14.2 % (11.5-14.5) Platelet Count 274 x10^3/uL (140-400) 178 x10^3/uL (140-400) Neutrophils (%) (Auto) 84 % (31-73) Lymphocytes (%) (Auto) 9 % (24-48) Monocytes (%) (Auto) 7 % (0-9) Eosinophils (%) (Auto) 1 % (0-3) Basophils (%) (Auto) 1 % (0-3) Neutrophils # (Auto) 11.9 x10^3/uL (1.8-7.7) Lymphocytes # (Auto) 1.2 x10^3/uL (1.0-4.8) Monocytes # (Auto) 0.9 x10^3/uL (0.0-1.1) Eosinophils # (Auto) 0.1 x10^3/uL (0.0-0.7) Basophils # (Auto) 0.1 x10^3/uL (0.0-0.2) Prothrombin Time 11.6 SEC (11.7-14.0) Prothromb Time International Ratio 0.9 (0.8-1.1) Activated Partial Thromboplast Time 22 SEC (24-38) Sodium Level 140 mmol/L (136-145) 139 mmol/L (136-145) Potassium Level 5.1 mmol/L (3.5-5.1) 4.9 mmol/L (3.5-5.1) Chloride Level 104 mmol/L (98-107) 106 mmol/L (98-107) Carbon Dioxide Level 29 mmol/L (21-32) 26 mmol/L (21-32) Anion Gap 7 (6-14) 7 (6-14) Blood Urea Nitrogen 11 mg/dL (7-20) 17 mg/dL (7-20) Creatinine 1.1 mg/dL (0.6-1.0) 1.1 mg/dL (0.6-1.0) Estimated GFR (Cockcroft-Gault) 47.2 47.2 BUN/Creatinine Ratio 10 (6-20) Glucose Level 114 mg/dL (70-99) 118 mg/dL (70-99) Calcium Level 9.1 mg/dL (8.5-10.1) 8.3 mg/dL (8.5-10.1) Total Bilirubin 0.6 mg/dL (0.2-1.0) Aspartate Amino Transf (AST/SGOT) 23 U/L (15-37) Alanine Aminotransferase (ALT/SGPT) 27 U/L (14-59) Alkaline Phosphatase 118 U/L (46-116) Total Protein 6.4 g/dL (6.4-8.2) Albumin 3.3 g/dL (3.4-5.0) Albumin/Globulin Ratio 1.1 (1.0-1.7) Coronavirus (PCR) Not detected (Not Detected) SARS-CoV-2 Antigen (Rapid) Negative (NEGATIVE) Urine Collection Type U cath Urine Color Yellow Urine Clarity Clear Urine pH 5.5 (<5.0-8.0) Urine Specific [place] 1.020 (1.000-1.030) Urine Protein Negative mg/dL (NEG-TRACE) Urine Glucose (UA) Negative mg/dL (NEG) Urine Ketones (Stick) Negative mg/dL (NEG) Urine Blood Negative (NEG) Urine Nitrite Negative (NEG) Urine Bilirubin Negative (NEG) Urine Urobilinogen Dipstick 0.2 mg/dL (0.2 mg/dL) Urine Leukocyte Esterase Negative (NEG) Urine RBC 6-10 /HPF (0-2) Urine WBC 1-4 /HPF (0-4) Urine Bacteria 0 /HPF (0-FEW) Urine Hyaline Casts Moderate /HPF Urine Mucus Mod /LPF Laboratory Tests Test 06/13/20 03:45 White Blood Count 8.7 x10^3/uL (4.0-11.0) Red Blood Count 2.93 x10^6/uL (3.50-5.40) Hemoglobin 9.6 g/dL (12.0-15.5) Hematocrit 28.6 % (36.0-47.0) Mean Corpuscular Volume 98 fL (79-100) Mean Corpuscular Hemoglobin 33 pg (25-35) Mean Corpuscular Hemoglobin Concent 34 g/dL (31-37) Red Cell Distribution Width 14.2 % (11.5-14.5) Platelet Count 178 x10^3/uL (140-400) Sodium Level 139 mmol/L (136-145) Potassium Level 4.9 mmol/L (3.5-5.1) Chloride Level 106 mmol/L (98-107) Carbon Dioxide Level 26 mmol/L (21-32) Anion Gap 7 (6-14) Blood Urea Nitrogen 17 mg/dL (7-20) Creatinine 1.1 mg/dL (0.6-1.0) Estimated GFR (Cockcroft-Gault) 47.2 Glucose Level 118 mg/dL (70-99) Calcium Level 8.3 mg/dL (8.5-10.1) Notes She is resting but easily awakens. Dressing is intact around her right hip and leg. Expected amount of drainage is present. Normal motor and sensation are present in her toes Assessment and Plan She can precipitate PT and OT as much as she is able to tolerate. She should continue her anticoagulation. I would anticipate she will need placement. KATELYN CHAVEZ II, MD Jun 13, 2020 08:54
[2020-06-13] MEDS: amLODIPine BESYLATE 5 MG TABLET PO SCH ×2 (09:00→09:02)
[2020-06-13] MEDS: HYDROcodone/APAP 5/325MG 1 TAB TABLET PO PRN ×2 (09:01→21:36)
[2020-06-13] MEDS: LEVOTHYROXINE 100 MCG TABLET PO SCH (09:02)
[2020-06-13] MEDS: ENOXAPARIN 40 MG/0.4 ML SYRINGE. SQ SCH (09:02)
--- NOTE | 2020-06-13 09:17 | PDOC ---
ORTHO PROGRESS NOTES Vitals Vital Signs Date Time Temp Pulse Resp B/P (MAP) Pulse Ox O2 Delivery O2 Flow Rate FiO2 06/13/20 09:02 74 103/55 06/13/20 09:01 16 Nasal Cannula 2.0 06/13/20 07:00 99.8 95 99.8 Labs Laboratory Tests Test 06/11/20 14:05 06/11/20 15:25 06/11/20 15:44 06/13/20 03:45 White Blood Count 14.2 x10^3/uL (4.0-11.0) 8.7 x10^3/uL (4.0-11.0) Red Blood Count 3.87 x10^6/uL (3.50-5.40) 2.93 x10^6/uL (3.50-5.40) Hemoglobin 12.6 g/dL (12.0-15.5) 9.6 g/dL (12.0-15.5) Hematocrit 37.6 % (36.0-47.0) 28.6 % (36.0-47.0) Mean Corpuscular Volume 97 fL (79-100) 98 fL (79-100) Mean Corpuscular Hemoglobin 33 pg (25-35) 33 pg (25-35) Mean Corpuscular Hemoglobin Concent 33 g/dL (31-37) 34 g/dL (31-37) Red Cell Distribution Width 14.4 % (11.5-14.5) 14.2 % (11.5-14.5) Platelet Count 274 x10^3/uL (140-400) 178 x10^3/uL (140-400) Neutrophils (%) (Auto) 84 % (31-73) Lymphocytes (%) (Auto) 9 % (24-48) Monocytes (%) (Auto) 7 % (0-9) Eosinophils (%) (Auto) 1 % (0-3) Basophils (%) (Auto) 1 % (0-3) Neutrophils # (Auto) 11.9 x10^3/uL (1.8-7.7) Lymphocytes # (Auto) 1.2 x10^3/uL (1.0-4.8) Monocytes # (Auto) 0.9 x10^3/uL (0.0-1.1) Eosinophils # (Auto) 0.1 x10^3/uL (0.0-0.7) Basophils # (Auto) 0.1 x10^3/uL (0.0-0.2) Prothrombin Time 11.6 SEC (11.7-14.0) Prothromb Time International Ratio 0.9 (0.8-1.1) Activated Partial Thromboplast Time 22 SEC (24-38) Sodium Level 140 mmol/L (136-145) 139 mmol/L (136-145) Potassium Level 5.1 mmol/L (3.5-5.1) 4.9 mmol/L (3.5-5.1) Chloride Level 104 mmol/L (98-107) 106 mmol/L (98-107) Carbon Dioxide Level 29 mmol/L (21-32) 26 mmol/L (21-32) Anion Gap 7 (6-14) 7 (6-14) Blood Urea Nitrogen 11 mg/dL (7-20) 17 mg/dL (7-20) Creatinine 1.1 mg/dL (0.6-1.0) 1.1 mg/dL (0.6-1.0) Estimated GFR (Cockcroft-Gault) 47.2 47.2 BUN/Creatinine Ratio 10 (6-20) Glucose Level 114 mg/dL (70-99) 118 mg/dL (70-99) Calcium Level 9.1 mg/dL (8.5-10.1) 8.3 mg/dL (8.5-10.1) Total Bilirubin 0.6 mg/dL (0.2-1.0) Aspartate Amino Transf (AST/SGOT) 23 U/L (15-37) Alanine Aminotransferase (ALT/SGPT) 27 U/L (14-59) Alkaline Phosphatase 118 U/L (46-116) Total Protein 6.4 g/dL (6.4-8.2) Albumin 3.3 g/dL (3.4-5.0) Albumin/Globulin Ratio 1.1 (1.0-1.7) Coronavirus (PCR) Not detected (Not Detected) SARS-CoV-2 Antigen (Rapid) Negative (NEGATIVE) Urine Collection Type U cath Urine Color Yellow Urine Clarity Clear Urine pH 5.5 (<5.0-8.0) Urine Specific [place] 1.020 (1.000-1.030) Urine Protein Negative mg/dL (NEG-TRACE) Urine Glucose (UA) Negative mg/dL (NEG) Urine Ketones (Stick) Negative mg/dL (NEG) Urine Blood Negative (NEG) Urine Nitrite Negative (NEG) Urine Bilirubin Negative (NEG) Urine Urobilinogen Dipstick 0.2 mg/dL (0.2 mg/dL) Urine Leukocyte Esterase Negative (NEG) Urine RBC 6-10 /HPF (0-2) Urine WBC 1-4 /HPF (0-4) Urine Bacteria 0 /HPF (0-FEW) Urine Hyaline Casts Moderate /HPF Urine Mucus Mod /LPF Laboratory Tests Test 06/13/20 03:45 White Blood Count 8.7 x10^3/uL (4.0-11.0) Red Blood Count 2.93 x10^6/uL (3.50-5.40) Hemoglobin 9.6 g/dL (12.0-15.5) Hematocrit 28.6 % (36.0-47.0) Mean Corpuscular Volume 98 fL (79-100) Mean Corpuscular Hemoglobin 33 pg (25-35) Mean Corpuscular Hemoglobin Concent 34 g/dL (31-37) Red Cell Distribution Width 14.2 % (11.5-14.5) Platelet Count 178 x10^3/uL (140-400) Sodium Level 139 mmol/L (136-145) Potassium Level 4.9 mmol/L (3.5-5.1) Chloride Level 106 mmol/L (98-107) Carbon Dioxide Level 26 mmol/L (21-32) Anion Gap 7 (6-14) Blood Urea Nitrogen 17 mg/dL (7-20) Creatinine 1.1 mg/dL (0.6-1.0) Estimated GFR (Cockcroft-Gault) 47.2 Glucose Level 118 mg/dL (70-99) Calcium Level 8.3 mg/dL (8.5-10.1) Assessment and Plan I spoke with the patient's this morning regarding the overall plan of her care nature of her injury and treatment. His questions were answered. He would be most interested in a rehab hospital as close to [place] as possible. KATELYN CHAVEZ II, MD Jun 13, 2020 09:17
[2020-06-13 11:06] VITALS: BP 130/47
--- NOTE | 2020-06-13 11:58 | NUR ---
SW following. Discussed with RN, pt from home with . PT recommending SNU, awaiting OT note. SW to meet with pt to discuss SNU discharge. RN advised pt is possibly a little confused today. DAVID will continue to follow. Addendum: 06/13/20 at 1547 by NADIA HERNANDEZ DAVID met with pt and pt's at bedside (no isolation precautions at the time), pt agreeable to SNU, would like [facility] as it is nearby. DAVID faxed referral to [facility], awaiting acceptance decision and insurance auth. RN notified. DAVID will continue to follow.
[2020-06-13] MEDS: METOPROLOL SUCC 24HR ER 25 MG TAB.ER.24H. PO SCH (12:13)
[2020-06-13 14:56] VITALS: BP 129/35
--- NOTE | 2020-06-13 15:24 | PDOC ---
PROGRESS NOTES Chief Complaint Chief Complaint fall, tripped by her dog acute right intertrochanteric right hip fracture htn, 3 agents, hypothyroid History of Present Illness History of Present Illness pt OK, still in a lot of pain this AM to OR this AM Dr. Huber to follow cont current Vitals Vitals Vital Signs Date Time Temp Pulse Resp B/P (MAP) Pulse Ox O2 Delivery O2 Flow Rate FiO2 06/13/20 14:56 98.6 64 18 129/35 (66) 96 Nasal Cannula 98.6 06/13/20 09:01 2.0 Physical Exam General: Alert, Oriented X3, No acute distress Heart: Regular rate Abdomen: Soft, No tenderness Extremities: No edema, Normal pulses Skin: No rashes Labs LABS Laboratory Tests Test 06/13/20 03:45 White Blood Count 8.7 x10^3/uL (4.0-11.0) Red Blood Count 2.93 x10^6/uL (3.50-5.40) Hemoglobin 9.6 g/dL (12.0-15.5) Hematocrit 28.6 % (36.0-47.0) Mean Corpuscular Volume 98 fL (79-100) Mean Corpuscular Hemoglobin 33 pg (25-35) Mean Corpuscular Hemoglobin Concent 34 g/dL (31-37) Red Cell Distribution Width 14.2 % (11.5-14.5) Platelet Count 178 x10^3/uL (140-400) Sodium Level 139 mmol/L (136-145) Potassium Level 4.9 mmol/L (3.5-5.1) Chloride Level 106 mmol/L (98-107) Carbon Dioxide Level 26 mmol/L (21-32) Anion Gap 7 (6-14) Blood Urea Nitrogen 17 mg/dL (7-20) Creatinine 1.1 mg/dL (0.6-1.0) Estimated GFR (Cockcroft-Gault) 47.2 Glucose Level 118 mg/dL (70-99) Calcium Level 8.3 mg/dL (8.5-10.1) Assessment and Plan Assessmemt and Plan Problems Medical Problems: (1) Intertrochanteric fracture of right hip Status: Acute Comment Review of Relevant I have reviewed the following items kiran (where applicable) has been applied. Labs Laboratory Tests Test 06/11/20 15:25 06/11/20 15:44 06/13/20 03:45 Coronavirus (PCR) Not detected (Not Detected) SARS-CoV-2 Antigen (Rapid) Negative (NEGATIVE) Urine Collection Type U cath Urine Color Yellow Urine Clarity Clear Urine pH 5.5 (<5.0-8.0) Urine Specific [place] 1.020 (1.000-1.030) Urine Protein Negative mg/dL (NEG-TRACE) Urine Glucose (UA) Negative mg/dL (NEG) Urine Ketones (Stick) Negative mg/dL (NEG) Urine Blood Negative (NEG) Urine Nitrite Negative (NEG) Urine Bilirubin Negative (NEG) Urine Urobilinogen Dipstick 0.2 mg/dL (0.2 mg/dL) Urine Leukocyte Esterase Negative (NEG) Urine RBC 6-10 /HPF (0-2) Urine WBC 1-4 /HPF (0-4) Urine Bacteria 0 /HPF (0-FEW) Urine Hyaline Casts Moderate /HPF Urine Mucus Mod /LPF White Blood Count 8.7 x10^3/uL (4.0-11.0) Red Blood Count 2.93 x10^6/uL (3.50-5.40) Hemoglobin 9.6 g/dL (12.0-15.5) Hematocrit 28.6 % (36.0-47.0) Mean Corpuscular Volume 98 fL (79-100) Mean Corpuscular Hemoglobin 33 pg (25-35) Mean Corpuscular Hemoglobin Concent 34 g/dL (31-37) Red Cell Distribution Width 14.2 % (11.5-14.5) Platelet Count 178 x10^3/uL (140-400) Sodium Level 139 mmol/L (136-145) Potassium Level 4.9 mmol/L (3.5-5.1) Chloride Level 106 mmol/L (98-107) Carbon Dioxide Level 26 mmol/L (21-32) Anion Gap 7 (6-14) Blood Urea Nitrogen 17 mg/dL (7-20) Creatinine 1.1 mg/dL (0.6-1.0) Estimated GFR (Cockcroft-Gault) 47.2 Glucose Level 118 mg/dL (70-99) Calcium Level 8.3 mg/dL (8.5-10.1) Laboratory Tests Test 06/13/20 03:45 White Blood Count 8.7 x10^3/uL (4.0-11.0) Red Blood Count 2.93 x10^6/uL (3.50-5.40) Hemoglobin 9.6 g/dL (12.0-15.5) Hematocrit 28.6 % (36.0-47.0) Mean Corpuscular Volume 98 fL (79-100) Mean Corpuscular Hemoglobin 33 pg (25-35) Mean Corpuscular Hemoglobin Concent 34 g/dL (31-37) Red Cell Distribution Width 14.2 % (11.5-14.5) Platelet Count 178 x10^3/uL (140-400) Sodium Level 139 mmol/L (136-145) Potassium Level 4.9 mmol/L (3.5-5.1) Chloride Level 106 mmol/L (98-107) Carbon Dioxide Level 26 mmol/L (21-32) Anion Gap 7 (6-14) Blood Urea Nitrogen 17 mg/dL (7-20) Creatinine 1.1 mg/dL (0.6-1.0) Estimated GFR (Cockcroft-Gault) 47.2 Glucose Level 118 mg/dL (70-99) Calcium Level 8.3 mg/dL (8.5-10.1) Medications Current Medications Morphine Sulfate (Morphine Sulfate) 2 mg 1X ONCE IV Last administered on 06/11/20at 12:30; Start 06/11/20 at 12:30; Stop 06/11/20 at 12:31; Status DC Ondansetron HCl (Zofran) 4 mg 1X ONCE IVP Last administered on 06/11/20at 12:30; Start 06/11/20 at 12:30; Stop 06/11/20 at 12:31; Status DC Morphine Sulfate (Morphine Sulfate) 2 mg PRN Q2HR PRN IV PAIN Last administered on 06/12/20at 08:35; Start 06/11/20 at 14:15; Stop 06/12/20 at 14:14; Status DC Ondansetron HCl (Zofran) 4 mg PRN Q6HRS PRN IV NAUSEA/VOMITING; Start 06/12/20 at 07:00; Stop 06/13/20 at 06:59; Status DC Fentanyl Citrate (Fentanyl 2ml Vial) 25 mcg PRN Q5MIN PRN IV MILD PAIN 1-3; Start 06/12/20 at 07:00; Stop 06/13/20 at 06:59; Status DC Fentanyl Citrate (Fentanyl 2ml Vial) 50 mcg PRN Q5MIN PRN IV MODERATE TO SEVERE PAIN Last administered on 06/12/20at 13:04; Start 06/12/20 at 07:00; Stop 06/13/20 at 06:59; Status DC Morphine Sulfate (Morphine Sulfate) 1 mg PRN Q10MIN PRN IV SEVERE PAIN 7-10 Last administered on 06/12/20at 13:29; Start 06/12/20 at 07:00; Stop 06/13/20 at 06:59; Status DC Ringer's Solution 1,000 ml @ 30 mls/hr Q24H IV Last administered on 06/12/20at 10:32; Start 06/12/20 at 07:00; Stop 06/12/20 at 18:59; Status DC Lidocaine HCl (Xylocaine-Mpf 1% 2ml Vial) 2 ml PRN 1X PRN ID PRIOR TO IV START; Start 06/12/20 at 07:00; Stop 06/13/20 at 06:59; Status DC Hydromorphone HCl (Dilaudid) 0.5 mg PRN Q10MIN PRN IV SEV PAIN, Second choice; Start 06/12/20 at 07:00; Stop 06/13/20 at 06:59; Status DC Prochlorperazine Edisylate (Compazine) 5 mg PACU PRN PRN IV NAUSEA, MRX1; Start 06/12/20 at 07:00; Stop 06/13/20 at 06:59; Status DC Morphine Sulfate 5 mg/Ketorolac Tromethamine 30 mg/Ropivacaine 60 ml/Epinephrine HCl 0.5 mg/Sodium Chloride 100 ml @ 100 mls/hr 1X ONCE INT ART Last administered on 06/12/20at 11:28; Start 06/12/20 at 06:00; Stop 06/12/20 at 06:59; Status DC Amlodipine Besylate (Norvasc) 5 mg DAILY PO Last administered on 06/11/20at 18:47; Start 06/11/20 at 18:00 Levothyroxine Sodium (Synthroid) 100 mcg DAILYAC PO Last administered on 06/13/20at 09:02; Start 06/12/20 at 07:30 Metoprolol Succinate (Toprol Xl) 25 mg DAILY PO Last administered on 06/13/20at 12:13; Start 06/12/20 at 09:00 Cefazolin Sodium (Ancef) 1 gm 1X ONCE IVP Last administered on 06/12/20at 11:03; Start 06/12/20 at 09:00; Stop 06/12/20 at 09:08; Status DC Propofol (Diprivan) 200 mg STK-MED ONCE IV ; Start 06/12/20 at 09:11; Stop 06/12/20 at 09:12; Status DC Lidocaine HCl (Lidocaine Pf 2% Vial) 5 ml STK-MED ONCE .ROUTE ; Start 06/12/20 at 09:11; Stop 06/12/20 at 09:12; Status DC Fentanyl Citrate (Fentanyl 2ml Vial) 100 mcg STK-MED ONCE .ROUTE ; Start 06/12/20 at 09:11; Stop 06/12/20 at 09:12; Status DC Dexamethasone Sodium Phosphate (Decadron) 4 mg STK-MED ONCE .ROUTE ; Start 06/12/20 at 11:20; Stop 06/12/20 at 11:20; Status DC Ondansetron HCl (Zofran) 4 mg STK-MED ONCE .ROUTE ; Start 06/12/20 at 11:20; Stop 06/12/20 at 11:21; Status DC Desflurane (Suprane) 60 ml STK-MED ONCE IH ; Start 06/12/20 at 11:20; Stop 06/12/20 at 11:21; Status DC Glycopyrrolate (Robinul) 1 mg STK-MED ONCE .ROUTE ; Start 06/12/20 at 11:27; Stop 06/12/20 at 11:28; Status DC Fentanyl Citrate (Fentanyl 2ml Vial) 100 mcg STK-MED ONCE .ROUTE ; Start 06/12/20 at 12:55; Stop 06/12/20 at 12:55; Status DC Morphine Sulfate (Morphine Sulfate) 2 mg STK-MED ONCE .ROUTE ; Start 06/12/20 at 13:14; Stop 06/12/20 at 13:14; Status DC Cefazolin Sodium (Ancef) 1 gm Q6H IVP Last administered on 06/13/20at 05:00; Start 06/12/20 at 17:00; Stop 06/13/20 at 05:01; Status DC Enoxaparin Sodium (Lovenox 40mg Syringe) 40 mg Q24H SQ Last administered on 06/13/20at 09:02; Start 06/13/20 at 09:00 Acetaminophen/ Hydrocodone Bitart (Lortab 5/325) 1 tab PRN Q4HRS PRN PO PAIN Last administered on 06/13/20at 09:01; Start 06/13/20 at 08:45 Active Scripts Active Reported Atorvastatin Calcium 40 Mg Tablet 40 Mg PO HS Lisinopril 20 Mg Tablet 20 Mg PO BID Metoprolol Succinate ( Xl ) (Metoprolol Succinate) 25 Mg Tab.er.24h 25 Mg PO BID Wal-Zyr (Cetirizine HCl) 10 Mg Capsule 10 Mg PO PRN DAILY PRN Multi Vitamin Daily (Multivitamin) 1 Each Tablet 1.5 Each PO DAILY Calcitrate + Vit D Caplet (Calcium Citrate/Vitamin D3) 1 Each Tablet 1 Each PO DAILY Aspirin 81 Mg Tab.chew 81 Mg PO DAILY Levothyroxine Sodium 100 Mcg Tablet 100 Mcg PO DAILYAC Amlodipine Besylate 5 Mg Tablet 5 Mg PO DAILY Lisinopril 40 Mg Tablet 40 Mg PO DAILY Vitals/I & O Vital Sign - Last 24 Hours 06/12/20 06/12/20 06/12/20 06/12/20 15:55 19:00 20:00 23:00 Temp 99.1 99.6 99.1 99.6 Pulse 61 73 69 Resp 16 16 B/P (MAP) 140/46 (77) 168/58 (94) 161/51 (87) Pulse Ox 93 97 93 O2 Delivery Room Air Room Air Room Air 06/13/20 06/13/20 06/13/20 06/13/20 03:00 07:00 08:00 09:01 Temp 99.7 99.8 99.7 99.8 Pulse 76 74 Resp 16 16 16 B/P (MAP) 98/50 (66) 103/55 (71) Pulse Ox 96 95 O2 Delivery Nasal Cannula Nasal Cannula Nasal Cannula Nasal Cannula O2 Flow Rate 2.0 2.0 06/13/20 06/13/20 06/13/20 06/13/20 10:00 11:06 12:13 14:56 Temp 99.8 98.6 99.8 98.6 Pulse 73 73 64 Resp 18 18 18 B/P (MAP) 130/47 (74) 130/47 129/35 (66) Pulse Ox 92 92 96 O2 Delivery Room Air Nasal Cannula Nasal Cannula Intake and Output 06/12/20 06/12/20 06/13/20 15:00 23:00 07:00 Intake Total 900 ml 100 ml Output Total 200 ml 100 ml Balance 700 ml 0 ml Justicifation of Admission Dx: Justifications for Admission: Justification of Admission Dx: Yes DINO GLASS MD Jun 13, 2020 15:24
[2020-06-13 19:09] VITALS: BP 131/41
[2020-06-13 22:26] VITALS: BP 152/41
[2020-06-14 03:15] VITALS: BP 149/46
[2020-06-14] MEDS: LEVOTHYROXINE 100 MCG TABLET PO SCH (05:52)
[2020-06-14 07:26] VITALS: BP 161/57
[2020-06-14] MEDS: METOPROLOL SUCC 24HR ER 25 MG TAB.ER.24H. PO SCH (08:34)
[2020-06-14] MEDS: amLODIPine BESYLATE 5 MG TABLET PO SCH (08:34)
[2020-06-14] MEDS: ENOXAPARIN 40 MG/0.4 ML SYRINGE. SQ SCH (08:35)
--- NOTE | 2020-06-14 10:00 | PDOC ---
PROGRESS NOTES Chief Complaint Chief Complaint fall, tripped by her dog acute right intertrochanteric right hip fracture htn, 3 agents, hypothyroid History of Present Illness History of Present Illness pain btter, doing well with PT, try to DC soon, skilled as able POD 2 Dr. Huber to follow cont current Vitals Vitals Vital Signs Date Time Temp Pulse Resp B/P (MAP) Pulse Ox O2 Delivery O2 Flow Rate FiO2 06/14/20 08:34 72 161/57 06/14/20 08:20 Nasal Cannula 2.0 06/14/20 07:26 99.1 18 97 99.1 Physical Exam General: Alert, Oriented X3, No acute distress Heart: Regular rate Abdomen: Soft, No tenderness Extremities: No edema, Normal pulses Skin: No rashes Assessment and Plan Assessmemt and Plan Problems Medical Problems: (1) Intertrochanteric fracture of right hip Status: Acute Comment Review of Relevant I have reviewed the following items kiran (where applicable) has been applied. Labs Laboratory Tests Test 06/13/20 03:45 White Blood Count 8.7 x10^3/uL (4.0-11.0) Red Blood Count 2.93 x10^6/uL (3.50-5.40) Hemoglobin 9.6 g/dL (12.0-15.5) Hematocrit 28.6 % (36.0-47.0) Mean Corpuscular Volume 98 fL (79-100) Mean Corpuscular Hemoglobin 33 pg (25-35) Mean Corpuscular Hemoglobin Concent 34 g/dL (31-37) Red Cell Distribution Width 14.2 % (11.5-14.5) Platelet Count 178 x10^3/uL (140-400) Sodium Level 139 mmol/L (136-145) Potassium Level 4.9 mmol/L (3.5-5.1) Chloride Level 106 mmol/L (98-107) Carbon Dioxide Level 26 mmol/L (21-32) Anion Gap 7 (6-14) Blood Urea Nitrogen 17 mg/dL (7-20) Creatinine 1.1 mg/dL (0.6-1.0) Estimated GFR (Cockcroft-Gault) 47.2 Glucose Level 118 mg/dL (70-99) Calcium Level 8.3 mg/dL (8.5-10.1) Medications Current Medications Morphine Sulfate (Morphine Sulfate) 2 mg 1X ONCE IV Last administered on 06/11/20at 12:30; Start 06/11/20 at 12:30; Stop 06/11/20 at 12:31; Status DC Ondansetron HCl (Zofran) 4 mg 1X ONCE IVP Last administered on 06/11/20at 12:30; Start 06/11/20 at 12:30; Stop 06/11/20 at 12:31; Status DC Morphine Sulfate (Morphine Sulfate) 2 mg PRN Q2HR PRN IV PAIN Last administered on 06/12/20at 08:35; Start 06/11/20 at 14:15; Stop 06/12/20 at 14:14; Status DC Ondansetron HCl (Zofran) 4 mg PRN Q6HRS PRN IV NAUSEA/VOMITING; Start 06/12/20 at 07:00; Stop 06/13/20 at 06:59; Status DC Fentanyl Citrate (Fentanyl 2ml Vial) 25 mcg PRN Q5MIN PRN IV MILD PAIN 1-3; Start 06/12/20 at 07:00; Stop 06/13/20 at 06:59; Status DC Fentanyl Citrate (Fentanyl 2ml Vial) 50 mcg PRN Q5MIN PRN IV MODERATE TO SEVERE PAIN Last administered on 06/12/20at 13:04; Start 06/12/20 at 07:00; Stop 06/13/20 at 06:59; Status DC Morphine Sulfate (Morphine Sulfate) 1 mg PRN Q10MIN PRN IV SEVERE PAIN 7-10 Last administered on 06/12/20at 13:29; Start 06/12/20 at 07:00; Stop 06/13/20 at 06:59; Status DC Ringer's Solution 1,000 ml @ 30 mls/hr Q24H IV Last administered on 06/12/20at 10:32; Start 06/12/20 at 07:00; Stop 06/12/20 at 18:59; Status DC Lidocaine HCl (Xylocaine-Mpf 1% 2ml Vial) 2 ml PRN 1X PRN ID PRIOR TO IV START; Start 06/12/20 at 07:00; Stop 06/13/20 at 06:59; Status DC Hydromorphone HCl (Dilaudid) 0.5 mg PRN Q10MIN PRN IV SEV PAIN, Second choice; Start 06/12/20 at 07:00; Stop 06/13/20 at 06:59; Status DC Prochlorperazine Edisylate (Compazine) 5 mg PACU PRN PRN IV NAUSEA, MRX1; Start 06/12/20 at 07:00; Stop 06/13/20 at 06:59; Status DC Morphine Sulfate 5 mg/Ketorolac Tromethamine 30 mg/Ropivacaine 60 ml/Epinephrine HCl 0.5 mg/Sodium Chloride 100 ml @ 100 mls/hr 1X ONCE INT ART Last administered on 06/12/20at 11:28; Start 06/12/20 at 06:00; Stop 06/12/20 at 06:59; Status DC Amlodipine Besylate (Norvasc) 5 mg DAILY PO Last administered on 06/14/20at 08:34; Start 06/11/20 at 18:00 Levothyroxine Sodium (Synthroid) 100 mcg DAILYAC PO Last administered on 06/14/20at 05:52; Start 06/12/20 at 07:30 Metoprolol Succinate (Toprol Xl) 25 mg DAILY PO Last administered on 06/14/20at 08:34; Start 06/12/20 at 09:00 Cefazolin Sodium (Ancef) 1 gm 1X ONCE IVP Last administered on 06/12/20at 11:03; Start 06/12/20 at 09:00; Stop 06/12/20 at 09:08; Status DC Propofol (Diprivan) 200 mg STK-MED ONCE IV ; Start 06/12/20 at 09:11; Stop 06/12/20 at 09:12; Status DC Lidocaine HCl (Lidocaine Pf 2% Vial) 5 ml STK-MED ONCE .ROUTE ; Start 06/12/20 at 09:11; Stop 06/12/20 at 09:12; Status DC Fentanyl Citrate (Fentanyl 2ml Vial) 100 mcg STK-MED ONCE .ROUTE ; Start 06/12/20 at 09:11; Stop 06/12/20 at 09:12; Status DC Dexamethasone Sodium Phosphate (Decadron) 4 mg STK-MED ONCE .ROUTE ; Start 06/12/20 at 11:20; Stop 06/12/20 at 11:20; Status DC Ondansetron HCl (Zofran) 4 mg STK-MED ONCE .ROUTE ; Start 06/12/20 at 11:20; Stop 06/12/20 at 11:21; Status DC Desflurane (Suprane) 60 ml STK-MED ONCE IH ; Start 06/12/20 at 11:20; Stop 06/12/20 at 11:21; Status DC Glycopyrrolate (Robinul) 1 mg STK-MED ONCE .ROUTE ; Start 06/12/20 at 11:27; Stop 06/12/20 at 11:28; Status DC Fentanyl Citrate (Fentanyl 2ml Vial) 100 mcg STK-MED ONCE .ROUTE ; Start 06/12/20 at 12:55; Stop 06/12/20 at 12:55; Status DC Morphine Sulfate (Morphine Sulfate) 2 mg STK-MED ONCE .ROUTE ; Start 06/12/20 at 13:14; Stop 06/12/20 at 13:14; Status DC Cefazolin Sodium (Ancef) 1 gm Q6H IVP Last administered on 06/13/20at 05:00; Start 06/12/20 at 17:00; Stop 06/13/20 at 05:01; Status DC Enoxaparin Sodium (Lovenox 40mg Syringe) 40 mg Q24H SQ Last administered on 06/14/20at 08:35; Start 06/13/20 at 09:00 Acetaminophen/ Hydrocodone Bitart (Lortab 5/325) 1 tab PRN Q4HRS PRN PO PAIN Last administered on 06/13/20at 21:36; Start 06/13/20 at 08:45 Active Scripts Active Reported Atorvastatin Calcium 40 Mg Tablet 40 Mg PO HS Lisinopril 20 Mg Tablet 20 Mg PO BID Metoprolol Succinate ( Xl ) (Metoprolol Succinate) 25 Mg Tab.er.24h 25 Mg PO BID Wal-Zyr (Cetirizine HCl) 10 Mg Capsule 10 Mg PO PRN DAILY PRN Multi Vitamin Daily (Multivitamin) 1 Each Tablet 1.5 Each PO DAILY Calcitrate + Vit D Caplet (Calcium Citrate/Vitamin D3) 1 Each Tablet 1 Each PO DAILY Aspirin 81 Mg Tab.chew 81 Mg PO DAILY Levothyroxine Sodium 100 Mcg Tablet 100 Mcg PO DAILYAC Amlodipine Besylate 5 Mg Tablet 5 Mg PO DAILY Lisinopril 40 Mg Tablet 40 Mg PO DAILY Vitals/I & O Vital Sign - Last 24 Hours 06/13/20 06/13/20 06/13/20 06/13/20 11:06 12:13 14:56 19:09 Temp 99.8 98.6 99.5 99.8 98.6 99.5 Pulse 73 73 64 70 Resp 18 18 16 B/P (MAP) 130/47 (74) 130/47 129/35 (66) 131/41 (71) Pulse Ox 92 96 96 O2 Delivery Nasal Cannula Nasal Cannula Room Air 06/13/20 06/13/20 06/13/20 06/14/20 19:50 21:36 22:26 00:28 Temp 99.4 99.4 Pulse 78 Resp 16 B/P (MAP) 152/41 (78) Pulse Ox 93 O2 Delivery Room Air Room Air Room Air Room Air 06/14/20 06/14/20 06/14/20 06/14/20 03:15 07:26 08:20 08:34 Temp 99.1 99.1 99.1 99.1 Pulse 70 72 72 Resp 16 18 B/P (MAP) 149/46 (80) 161/57 (91) 161/57 Pulse Ox 95 97 O2 Delivery Nasal Cannula Nasal Cannula Nasal Cannula O2 Flow Rate 2.0 2.0 2.0 06/14/20 08:34 Pulse 72 B/P (MAP) 161/57 Intake and Output 06/13/20 06/13/20 06/14/20 15:00 23:00 07:00 Intake Total 100 ml 0 ml Output Total 725 ml Balance 100 ml -725 ml Justicifation of Admission Dx: Justifications for Admission: Justification of Admission Dx: Yes DINO GLASS MD Jun 14, 2020 10:00
--- NOTE | 2020-06-14 10:39 | PDOC ---
ORTHO PROGRESS NOTES Subjective walked yesterday, difficult for her Vitals Vital Signs Date Time Temp Pulse Resp B/P (MAP) Pulse Ox O2 Delivery O2 Flow Rate FiO2 06/14/20 08:34 72 161/57 06/14/20 08:20 Nasal Cannula 2.0 06/14/20 07:26 99.1 18 97 99.1 Labs Laboratory Tests Test 06/13/20 03:45 White Blood Count 8.7 x10^3/uL (4.0-11.0) Red Blood Count 2.93 x10^6/uL (3.50-5.40) Hemoglobin 9.6 g/dL (12.0-15.5) Hematocrit 28.6 % (36.0-47.0) Mean Corpuscular Volume 98 fL (79-100) Mean Corpuscular Hemoglobin 33 pg (25-35) Mean Corpuscular Hemoglobin Concent 34 g/dL (31-37) Red Cell Distribution Width 14.2 % (11.5-14.5) Platelet Count 178 x10^3/uL (140-400) Sodium Level 139 mmol/L (136-145) Potassium Level 4.9 mmol/L (3.5-5.1) Chloride Level 106 mmol/L (98-107) Carbon Dioxide Level 26 mmol/L (21-32) Anion Gap 7 (6-14) Blood Urea Nitrogen 17 mg/dL (7-20) Creatinine 1.1 mg/dL (0.6-1.0) Estimated GFR (Cockcroft-Gault) 47.2 Glucose Level 118 mg/dL (70-99) Calcium Level 8.3 mg/dL (8.5-10.1) Notes A and A in bed dressing intact, normal m/s distally Assessment and Plan cont PT/OT, anticoag ok to D/C from my standpoint KATELYN CHAVEZ II, MD Jun 14, 2020 10:39
[2020-06-14 11:37] VITALS: BP 147/41
[2020-06-14] MEDS ORDERED: HYDR-2761 PO (14:33)
[2020-06-14] MEDS ORDERED: DOCU-109 PO (14:33)
--- NOTE | 2020-06-14 14:34 | SNU/HH DC ---
DISCHARGE ORDERS DISCHARGE INFORMATION: DISCHARGE DATE: Jun 14, 2020 FINAL DIAGNOSIS fall, weakness, hip fracture Problems Medical Problems: (1) Intertrochanteric fracture of right hip Status: Acute CONDITION ON DISCHARGE: Stable CODE STATUS: Code Status: Full LONG-TERM: SNF STAY <30 DAYS: Yes POST DISCHARGE ORDERS: ACTIVITY ORDERS: No restrictions, Activity as tolerated WEIGHT BEARING STATUS: Full weight bearing, As tolerated DIET AFTER DISCHARGE: Regular FOLLOW-UP: ADDITIONAL FOLLOW-UP: ortho 2 weeks TREATMENT/EQUIPMENT ORDERS: ADAPTIVE EQUIPMENT NEEDED: Front wheeled walker Physical Therapy For: Evalulation/Treatment Occupational Therapy For: Evaluation/Treatment DISCHARGE MEDICATIONS: Home Meds Active Scripts Hydrocodone Bit/Acetaminophen (HYDROCODONE-APAP 5-325 ) 1 Tab Tablet, 1 TAB PO PRN Q4HRS PRN for PAIN, #30 TAB Prov:DINO GLASS MD 06/14/20 Reported Medications Atorvastatin Calcium (ATORVASTATIN CALCIUM) 40 Mg Tablet, 40 MG PO HS for FOR CHOLESTEROL, #30 TAB 0 Refills 06/11/20 Lisinopril (LISINOPRIL) 20 Mg Tablet, 20 MG PO BID for FOR HYPERTENSION, #30 TAB 0 Refills 06/11/20 Metoprolol Succinate (METOPROLOL SUCCINATE ( XL )) 25 Mg Tab.er.24h, 25 MG PO BID for FOR HYPERTENSION, #30 TAB 0 Refills 06/11/20 Cetirizine HCl (Wal-Zyr) 10 Mg Capsule, 10 MG PO PRN DAILY PRN for ALLERGIES, CAP 11/05/17 Multivitamin (MULTI VITAMIN DAILY) 1 Each Tablet, 1.5 EACH PO DAILY, TAB 11/05/17 Calcium Citrate/Vitamin D3 (CALCITRATE + VIT D CAPLET) 1 Each Tablet, 1 EACH PO DAILY, TAB 11/05/17 Aspirin (ASPIRIN) 81 Mg Tab.chew, 81 MG PO DAILY, TAB.CHEW 11/05/17 Levothyroxine Sodium (LEVOTHYROXINE SODIUM) 100 Mcg Tablet, 100 MCG PO DAILYAC for THYROID SUPPLEMENT, #30 TAB 0 Refills 11/05/17 Amlodipine Besylate (AMLODIPINE BESYLATE) 5 Mg Tablet, 5 MG PO DAILY, TAB 11/05/17 Lisinopril (LISINOPRIL) 40 Mg Tablet, 40 MG PO DAILY for FOR HYPERTENSION, #30 TAB 0 Refills 11/05/17 DINO GLASS MD Jun 14, 2020 14:34
[2020-06-14] MEDS ORDERED: POLYETHYLENE GLYCOL 3350 17 GM PACKET. PO ONE (14:45)
[2020-06-14 15:04] VITALS: BP 144/46
[2020-06-14 19:00] VITALS: BP 155/46
[2020-06-14] MEDS: HYDROcodone/APAP 5/325MG 1 TAB TABLET PO PRN (20:34)
[2020-06-14 23:00] VITALS: BP 152/52
[2020-06-15 03:00] VITALS: BP 150/77
[2020-06-15 07:30] VITALS: BP 150/53
[2020-06-15] MEDS: amLODIPine BESYLATE 5 MG TABLET PO SCH (08:21)
[2020-06-15] MEDS: LEVOTHYROXINE 100 MCG TABLET PO SCH (08:21)
[2020-06-15] MEDS: METOPROLOL SUCC 24HR ER 25 MG TAB.ER.24H. PO SCH (08:22)
[2020-06-15] MEDS: ENOXAPARIN 40 MG/0.4 ML SYRINGE. SQ SCH (08:22)
[2020-06-15] MEDS: HYDROcodone/APAP 5/325MG 1 TAB TABLET PO PRN ×2 (09:28→14:44)
[2020-06-15 11:56] VITALS: BP 138/56
--- NOTE | 2020-06-15 12:22 | PDOC ---
PROGRESS NOTES Chief Complaint Chief Complaint fall, tripped by her dog acute right intertrochanteric right hip fracture htn, 3 agents, hypothyroid History of Present Illness History of Present Illness still having a lot of trouble with pain, does not want to get up does not want nichole removed, is worried about skilled placemtn doing about the same with PT, try to DC soon, skilled as able POD 3 Dr. Mayo de la rosa current Vitals Vitals Vital Signs Date Time Temp Pulse Resp B/P (MAP) Pulse Ox O2 Delivery O2 Flow Rate FiO2 06/15/20 11:56 98.5 71 18 138/56 (83) 97 Room Air 98.5 06/15/20 03:00 2.0 Physical Exam General: Alert, Oriented X3, No acute distress Heart: Regular rate Abdomen: Soft, No tenderness Extremities: No edema, Normal pulses Skin: No rashes Assessment and Plan Assessmemt and Plan Problems Medical Problems: (1) Intertrochanteric fracture of right hip Status: Acute Comment Review of Relevant I have reviewed the following items kiran (where applicable) has been applied. Medications Current Medications Morphine Sulfate (Morphine Sulfate) 2 mg 1X ONCE IV Last administered on 06/11/20at 12:30; Start 06/11/20 at 12:30; Stop 06/11/20 at 12:31; Status DC Ondansetron HCl (Zofran) 4 mg 1X ONCE IVP Last administered on 06/11/20at 12:30; Start 06/11/20 at 12:30; Stop 06/11/20 at 12:31; Status DC Morphine Sulfate (Morphine Sulfate) 2 mg PRN Q2HR PRN IV PAIN Last administered on 06/12/20at 08:35; Start 06/11/20 at 14:15; Stop 06/12/20 at 14:14; Status DC Ondansetron HCl (Zofran) 4 mg PRN Q6HRS PRN IV NAUSEA/VOMITING; Start 06/12/20 at 07:00; Stop 06/13/20 at 06:59; Status DC Fentanyl Citrate (Fentanyl 2ml Vial) 25 mcg PRN Q5MIN PRN IV MILD PAIN 1-3; Start 06/12/20 at 07:00; Stop 06/13/20 at 06:59; Status DC Fentanyl Citrate (Fentanyl 2ml Vial) 50 mcg PRN Q5MIN PRN IV MODERATE TO SEVERE PAIN Last administered on 06/12/20at 13:04; Start 06/12/20 at 07:00; Stop 06/13/20 at 06:59; Status DC Morphine Sulfate (Morphine Sulfate) 1 mg PRN Q10MIN PRN IV SEVERE PAIN 7-10 Last administered on 06/12/20at 13:29; Start 06/12/20 at 07:00; Stop 06/13/20 at 06:59; Status DC Ringer's Solution 1,000 ml @ 30 mls/hr Q24H IV Last administered on 06/12/20at 10:32; Start 06/12/20 at 07:00; Stop 06/12/20 at 18:59; Status DC Lidocaine HCl (Xylocaine-Mpf 1% 2ml Vial) 2 ml PRN 1X PRN ID PRIOR TO IV START; Start 06/12/20 at 07:00; Stop 06/13/20 at 06:59; Status DC Hydromorphone HCl (Dilaudid) 0.5 mg PRN Q10MIN PRN IV SEV PAIN, Second choice; Start 06/12/20 at 07:00; Stop 06/13/20 at 06:59; Status DC Prochlorperazine Edisylate (Compazine) 5 mg PACU PRN PRN IV NAUSEA, MRX1; Start 06/12/20 at 07:00; Stop 06/13/20 at 06:59; Status DC Morphine Sulfate 5 mg/Ketorolac Tromethamine 30 mg/Ropivacaine 60 ml/Epinephrine HCl 0.5 mg/Sodium Chloride 100 ml @ 100 mls/hr 1X ONCE INT ART Last administered on 06/12/20at 11:28; Start 06/12/20 at 06:00; Stop 06/12/20 at 06:59; Status DC Amlodipine Besylate (Norvasc) 5 mg DAILY PO Last administered on 06/15/20at 08:21; Start 06/11/20 at 18:00 Levothyroxine Sodium (Synthroid) 100 mcg DAILYAC PO Last administered on 06/15/20at 08:21; Start 06/12/20 at 07:30 Metoprolol Succinate (Toprol Xl) 25 mg DAILY PO Last administered on 06/15/20at 08:22; Start 06/12/20 at 09:00 Cefazolin Sodium (Ancef) 1 gm 1X ONCE IVP Last administered on 06/12/20at 11:03; Start 06/12/20 at 09:00; Stop 06/12/20 at 09:08; Status DC Propofol (Diprivan) 200 mg STK-MED ONCE IV ; Start 06/12/20 at 09:11; Stop 06/12/20 at 09:12; Status DC Lidocaine HCl (Lidocaine Pf 2% Vial) 5 ml STK-MED ONCE .ROUTE ; Start 06/12/20 at 09:11; Stop 06/12/20 at 09:12; Status DC Fentanyl Citrate (Fentanyl 2ml Vial) 100 mcg STK-MED ONCE .ROUTE ; Start 06/12/20 at 09:11; Stop 06/12/20 at 09:12; Status DC Dexamethasone Sodium Phosphate (Decadron) 4 mg STK-MED ONCE .ROUTE ; Start 06/12/20 at 11:20; Stop 06/12/20 at 11:20; Status DC Ondansetron HCl (Zofran) 4 mg STK-MED ONCE .ROUTE ; Start 06/12/20 at 11:20; Stop 06/12/20 at 11:21; Status DC Desflurane (Suprane) 60 ml STK-MED ONCE IH ; Start 06/12/20 at 11:20; Stop 06/12/20 at 11:21; Status DC Glycopyrrolate (Robinul) 1 mg STK-MED ONCE .ROUTE ; Start 06/12/20 at 11:27; Stop 06/12/20 at 11:28; Status DC Fentanyl Citrate (Fentanyl 2ml Vial) 100 mcg STK-MED ONCE .ROUTE ; Start 06/12/20 at 12:55; Stop 06/12/20 at 12:55; Status DC Morphine Sulfate (Morphine Sulfate) 2 mg STK-MED ONCE .ROUTE ; Start 06/12/20 at 13:14; Stop 06/12/20 at 13:14; Status DC Cefazolin Sodium (Ancef) 1 gm Q6H IVP Last administered on 06/13/20at 05:00; Start 06/12/20 at 17:00; Stop 06/13/20 at 05:01; Status DC Enoxaparin Sodium (Lovenox 40mg Syringe) 40 mg Q24H SQ Last administered on 06/15/20at 08:22; Start 06/13/20 at 09:00 Acetaminophen/ Hydrocodone Bitart (Lortab 5/325) 1 tab PRN Q4HRS PRN PO PAIN Last administered on 06/15/20at 09:28; Start 06/13/20 at 08:45 Polyethylene Glycol (miraLAX PACKET) 17 gm 1X ONCE PO Last administered on 06/14/20at 16:17; Start 06/14/20 at 14:45; Stop 06/14/20 at 14:46; Status DC Docusate Sodium (Colace) 100 mg PRN DAILY PRN PO HARD STOOLS; Start 06/14/20 at 14:45 Active Scripts Active Hydrocodone-Apap 5-325 (Hydrocodone Bit/Acetaminophen) 1 Tab Tablet 1 Tab PO PRN Q4HRS PRN Reported Atorvastatin Calcium 40 Mg Tablet 40 Mg PO HS Lisinopril 20 Mg Tablet 20 Mg PO BID Metoprolol Succinate ( Xl ) (Metoprolol Succinate) 25 Mg Tab.er.24h 25 Mg PO BID Wal-Zyr (Cetirizine HCl) 10 Mg Capsule 10 Mg PO PRN DAILY PRN Multi Vitamin Daily (Multivitamin) 1 Each Tablet 1.5 Each PO DAILY Calcitrate + Vit D Caplet (Calcium Citrate/Vitamin D3) 1 Each Tablet 1 Each PO DAILY Aspirin 81 Mg Tab.chew 81 Mg PO DAILY Levothyroxine Sodium 100 Mcg Tablet 100 Mcg PO DAILYAC Amlodipine Besylate 5 Mg Tablet 5 Mg PO DAILY Lisinopril 40 Mg Tablet 40 Mg PO DAILY Vitals/I & O Vital Sign - Last 24 Hours 06/14/20 06/14/20 06/14/20 06/14/20 15:04 19:00 19:15 20:34 Temp 99.0 98.1 99.0 98.1 Pulse 76 73 Resp 18 22 B/P (MAP) 144/46 (78) 155/46 (82) Pulse Ox 98 98 O2 Delivery Nasal Cannula Nasal Cannula Room Air Room Air O2 Flow Rate 2.0 2.0 06/14/20 06/14/20 06/15/20 06/15/20 21:45 23:00 03:00 07:30 Temp 98.0 98.1 99.1 98.0 98.1 99.1 Pulse 73 76 74 Resp 20 18 18 B/P (MAP) 152/52 (85) 150/77 (101) 150/53 (85) Pulse Ox 94 96 95 O2 Delivery Nasal Cannula Nasal Cannula Nasal Cannula Room Air O2 Flow Rate 2.0 2.0 2.0 06/15/20 06/15/20 06/15/20 06/15/20 08:00 08:21 08:22 09:28 Pulse 74 74 B/P (MAP) 150/53 150/53 O2 Delivery Room Air Room Air 06/15/20 06/15/20 10:38 11:56 Temp 98.5 98.5 Pulse 71 Resp 18 B/P (MAP) 138/56 (83) Pulse Ox 97 O2 Delivery Room Air Room Air Intake and Output 06/14/20 06/14/20 06/15/20 15:00 23:00 07:00 Intake Total 240 ml 450 ml Output Total 750 ml Balance 240 ml -300 ml Justicifation of Admission Dx: Justifications for Admission: Justification of Admission Dx: Yes DINO GLASS MD Jun 15, 2020 12:22
[2020-06-15] MEDS: DOCUSATE SODIUM 100 MG CAPSULE. PO PRN (14:44)
[2020-06-15 15:34] VITALS: BP 139/53
[2020-06-15 17:06] LABS: HEMATOCRIT 22.1 % (36.0-47.0); HEMOGLOBIN 7.5 g/dL (12.0-15.5); RED BLOOD COUNT 2.3 x10^6/uL (3.50-5.40); WHITE BLOOD COUNT 8.4 x10^3/uL (4.0-11.0)
[2020-06-15 17:20] LABS: CALCIUM 8.2 mg/dL (8.5-10.1); CREATININE 0.9 mg/dL (0.6-1.0); GFR 59.5; POTASSIUM 4.3 mmol/L (3.5-5.1)
[2020-06-15 19:00] VITALS: BP 128/60
[2020-06-15 23:00] VITALS: BP 124/46
[2020-06-16 03:00] VITALS: BP 165/59
[2020-06-16] MEDS: LEVOTHYROXINE 100 MCG TABLET PO SCH (05:38)
[2020-06-16 07:00] VITALS: BP 110/47
--- NOTE | 2020-06-16 08:55 | NUR ---
DAVID following. Discussed with RN. HERNANDEZ left voicemail for Glendy at [facility] requesting call back to advise of acceptance decision and insurance auth. DAVID will continue to follow. Addendum: 06/16/20 at 1028 by NADIA HERNANDEZ Pt is accepted at [facility] pending insurance auth. Submitted for insurance today. DAVID will continue to follow.
--- NOTE | 2020-06-16 09:18 | PDOC ---
PROGRESS NOTES Chief Complaint Chief Complaint impression mechanical fall, tripped by her dog acute right intertrochanteric right hip fracture htn, 3 agents, hypothyroid A FIB RVR ekg now History of Present Illness History of Present Illness still having a lot of trouble with pain, does not want to get up does not want nichole removed, is worried about skilled placemtn PT, try to DC soon, skilled as able POD 3 Dr. Huber cont current Vitals Vitals Vital Signs Date Time Temp Pulse Resp B/P (MAP) Pulse Ox O2 Delivery O2 Flow Rate FiO2 06/16/20 07:00 98.6 81 18 110/47 (68) 93 Room Air 98.6 Physical Exam General: Alert, Oriented X3, No acute distress Heart: Regular rate (IRRR rapid), Normal S1, Other Abdomen: Soft, No tenderness Extremities: No edema, Normal pulses Skin: No rashes Labs LABS Operative Note Date of procedure: 06/12/2020 Surgeon: Rojelio Huber [employer] Driver: Trav Cooley Preoperative diagnosis: Closed right proximal femoral fracture Postoperative diagnosis: Same Procedure performed: Closed reduction intramedullary nailing right proximal femur fracture Anesthesia: General Findings: Acute fracture Complications: None Blood loss: 100 mL Components inserted: [employer] InterTAN nail, 10 x 36, 130 degrees right, 100 mm lag screw, 95 mm compression screw, 2 distal interlocking screws Laboratory Tests Test 06/15/20 16:30 White Blood Count 8.4 x10^3/uL (4.0-11.0) Red Blood Count 2.30 x10^6/uL (3.50-5.40) Hemoglobin 7.5 g/dL (12.0-15.5) Hematocrit 22.1 % (36.0-47.0) Mean Corpuscular Volume 96 fL (79-100) Mean Corpuscular Hemoglobin 32 pg (25-35) Mean Corpuscular Hemoglobin Concent 34 g/dL (31-37) Red Cell Distribution Width 14.0 % (11.5-14.5) Platelet Count 210 x10^3/uL (140-400) Sodium Level 136 mmol/L (136-145) Potassium Level 4.3 mmol/L (3.5-5.1) Chloride Level 102 mmol/L (98-107) Carbon Dioxide Level 27 mmol/L (21-32) Anion Gap 7 (6-14) Blood Urea Nitrogen 17 mg/dL (7-20) Creatinine 0.9 mg/dL (0.6-1.0) Estimated GFR (Cockcroft-Gault) 59.5 Glucose Level 130 mg/dL (70-99) Calcium Level 8.2 mg/dL (8.5-10.1) Assessment and Plan Assessmemt and Plan Problems Medical Problems: (1) Intertrochanteric fracture of right hip Status: Acute Comment Review of Relevant I have reviewed the following items kiran (where applicable) has been applied. Labs Laboratory Tests Test 06/15/20 16:30 White Blood Count 8.4 x10^3/uL (4.0-11.0) Red Blood Count 2.30 x10^6/uL (3.50-5.40) Hemoglobin 7.5 g/dL (12.0-15.5) Hematocrit 22.1 % (36.0-47.0) Mean Corpuscular Volume 96 fL (79-100) Mean Corpuscular Hemoglobin 32 pg (25-35) Mean Corpuscular Hemoglobin Concent 34 g/dL (31-37) Red Cell Distribution Width 14.0 % (11.5-14.5) Platelet Count 210 x10^3/uL (140-400) Sodium Level 136 mmol/L (136-145) Potassium Level 4.3 mmol/L (3.5-5.1) Chloride Level 102 mmol/L (98-107) Carbon Dioxide Level 27 mmol/L (21-32) Anion Gap 7 (6-14) Blood Urea Nitrogen 17 mg/dL (7-20) Creatinine 0.9 mg/dL (0.6-1.0) Estimated GFR (Cockcroft-Gault) 59.5 Glucose Level 130 mg/dL (70-99) Calcium Level 8.2 mg/dL (8.5-10.1) Laboratory Tests Test 06/15/20 16:30 White Blood Count 8.4 x10^3/uL (4.0-11.0) Red Blood Count 2.30 x10^6/uL (3.50-5.40) Hemoglobin 7.5 g/dL (12.0-15.5) Hematocrit 22.1 % (36.0-47.0) Mean Corpuscular Volume 96 fL (79-100) Mean Corpuscular Hemoglobin 32 pg (25-35) Mean Corpuscular Hemoglobin Concent 34 g/dL (31-37) Red Cell Distribution Width 14.0 % (11.5-14.5) Platelet Count 210 x10^3/uL (140-400) Sodium Level 136 mmol/L (136-145) Potassium Level 4.3 mmol/L (3.5-5.1) Chloride Level 102 mmol/L (98-107) Carbon Dioxide Level 27 mmol/L (21-32) Anion Gap 7 (6-14) Blood Urea Nitrogen 17 mg/dL (7-20) Creatinine 0.9 mg/dL (0.6-1.0) Estimated GFR (Cockcroft-Gault) 59.5 Glucose Level 130 mg/dL (70-99) Calcium Level 8.2 mg/dL (8.5-10.1) Medications Current Medications Morphine Sulfate (Morphine Sulfate) 2 mg 1X ONCE IV Last administered on 06/11/20at 12:30; Start 06/11/20 at 12:30; Stop 06/11/20 at 12:31; Status DC Ondansetron HCl (Zofran) 4 mg 1X ONCE IVP Last administered on 06/11/20at 12:30; Start 06/11/20 at 12:30; Stop 06/11/20 at 12:31; Status DC Morphine Sulfate (Morphine Sulfate) 2 mg PRN Q2HR PRN IV PAIN Last administered on 06/12/20at 08:35; Start 06/11/20 at 14:15; Stop 06/12/20 at 14:14; Status DC Ondansetron HCl (Zofran) 4 mg PRN Q6HRS PRN IV NAUSEA/VOMITING; Start 06/12/20 at 07:00; Stop 06/13/20 at 06:59; Status DC Fentanyl Citrate (Fentanyl 2ml Vial) 25 mcg PRN Q5MIN PRN IV MILD PAIN 1-3; Start 06/12/20 at 07:00; Stop 06/13/20 at 06:59; Status DC Fentanyl Citrate (Fentanyl 2ml Vial) 50 mcg PRN Q5MIN PRN IV MODERATE TO SEVERE PAIN Last administered on 06/12/20at 13:04; Start 06/12/20 at 07:00; Stop at 06:59; Status DC Morphine Sulfate (Morphine Sulfate) 1 mg PRN Q10MIN PRN IV SEVERE PAIN 7-10 Last administered on 06/12/20at 13:29; Start 06/12/20 at 07:00; Stop 06/13/20 at 06:59; Status DC Ringer's Solution 1,000 ml @ 30 mls/hr Q24H IV Last administered on 06/12/20at 10:32; Start 06/12/20 at 07:00; Stop 06/12/20 at 18:59; Status DC Lidocaine HCl (Xylocaine-Mpf 1% 2ml Vial) 2 ml PRN 1X PRN ID PRIOR TO IV START; Start 06/12/20 at 07:00; Stop 06/13/20 at 06:59; Status DC Hydromorphone HCl (Dilaudid) 0.5 mg PRN Q10MIN PRN IV SEV PAIN, Second choice; Start 06/12/20 at 07:00; Stop 06/13/20 at 06:59; Status DC Prochlorperazine Edisylate (Compazine) 5 mg PACU PRN PRN IV NAUSEA, MRX1; Start 06/12/20 at 07:00; Stop 06/13/20 at 06:59; Status DC Morphine Sulfate 5 mg/Ketorolac Tromethamine 30 mg/Ropivacaine 60 ml/Epinephrine HCl 0.5 mg/Sodium Chloride 100 ml @ 100 mls/hr 1X ONCE INT ART Last administered on 06/12/20at 11:28; Start 06/12/20 at 06:00; Stop 06/12/20 at 06:59; Status DC Amlodipine Besylate (Norvasc) 5 mg DAILY PO Last administered on 06/15/20at 08:21; Start 06/11/20 at 18:00 Levothyroxine Sodium (Synthroid) 100 mcg DAILYAC PO Last administered on 06/16/20at 05:38; Start 06/12/20 at 07:30 Metoprolol Succinate (Toprol Xl) 25 mg DAILY PO Last administered on 06/15/20at 08:22; Start 06/12/20 at 09:00 Cefazolin Sodium (Ancef) 1 gm 1X ONCE IVP Last administered on 06/12/20at 11:03; Start 06/12/20 at 09:00; Stop 06/12/20 at 09:08; Status DC Propofol (Diprivan) 200 mg STK-MED ONCE IV ; Start 06/12/20 at 09:11; Stop 06/12/20 at 09:12; Status DC Lidocaine HCl (Lidocaine Pf 2% Vial) 5 ml STK-MED ONCE .ROUTE ; Start 06/12/20 at 09:11; Stop 06/12/20 at 09:12; Status DC Fentanyl Citrate (Fentanyl 2ml Vial) 100 mcg STK-MED ONCE .ROUTE ; Start 06/12/20 at 09:11; Stop 06/12/20 at 09:12; Status DC Dexamethasone Sodium Phosphate (Decadron) 4 mg STK-MED ONCE .ROUTE ; Start 06/12/20 at 11:20; Stop 06/12/20 at 11:20; Status DC Ondansetron HCl (Zofran) 4 mg STK-MED ONCE .ROUTE ; Start 06/12/20 at 11:20; Stop 06/12/20 at 11:21; Status DC Desflurane (Suprane) 60 ml STK-MED ONCE IH ; Start 06/12/20 at 11:20; Stop 06/12/20 at 11:21; Status DC Glycopyrrolate (Robinul) 1 mg STK-MED ONCE .ROUTE ; Start 06/12/20 at 11:27; Stop 06/12/20 at 11:28; Status DC Fentanyl Citrate (Fentanyl 2ml Vial) 100 mcg STK-MED ONCE .ROUTE ; Start 06/12/20 at 12:55; Stop 06/12/20 at 12:55; Status DC Morphine Sulfate (Morphine Sulfate) 2 mg STK-MED ONCE .ROUTE ; Start 06/12/20 at 13:14; Stop 06/12/20 at 13:14; Status DC Cefazolin Sodium (Ancef) 1 gm Q6H IVP Last administered on 06/13/20at 05:00; Start 06/12/20 at 17:00; Stop 06/13/20 at 05:01; Status DC Enoxaparin Sodium (Lovenox 40mg Syringe) 40 mg Q24H SQ Last administered on 06/15/20at 08:22; Start 06/13/20 at 09:00 Acetaminophen/ Hydrocodone Bitart (Lortab 5/325) 1 tab PRN Q4HRS PRN PO PAIN Last administered on 06/15/20at 14:44; Start 06/13/20 at 08:45 Polyethylene Glycol (miraLAX PACKET) 17 gm 1X ONCE PO Last administered on 06/14/20at 16:17; Start 06/14/20 at 14:45; Stop 06/14/20 at 14:46; Status DC Docusate Sodium (Colace) 100 mg PRN DAILY PRN PO HARD STOOLS Last administered on 06/15/20at 14:44; Start 06/14/20 at 14:45 Active Scripts Active Hydrocodone-Apap 5-325 (Hydrocodone Bit/Acetaminophen) 1 Tab Tablet 1 Tab PO PRN Q4HRS PRN Reported Atorvastatin Calcium 40 Mg Tablet 40 Mg PO HS Lisinopril 20 Mg Tablet 20 Mg PO BID Metoprolol Succinate ( Xl ) (Metoprolol Succinate) 25 Mg Tab.er.24h 25 Mg PO BID Wal-Zyr (Cetirizine HCl) 10 Mg Capsule 10 Mg PO PRN DAILY PRN Multi Vitamin Daily (Multivitamin) 1 Each Tablet 1.5 Each PO DAILY Calcitrate + Vit D Caplet (Calcium Citrate/Vitamin D3) 1 Each Tablet 1 Each PO DAILY Aspirin 81 Mg Tab.chew 81 Mg PO DAILY Levothyroxine Sodium 100 Mcg Tablet 100 Mcg PO DAILYAC Amlodipine Besylate 5 Mg Tablet 5 Mg PO DAILY Lisinopril 40 Mg Tablet 40 Mg PO DAILY Vitals/I & O Vital Sign - Last 24 Hours 06/15/20 06/15/20 06/15/20 06/15/20 09:28 10:38 11:56 14:44 Temp 98.5 98.5 Pulse 71 Resp 18 B/P (MAP) 138/56 (83) Pulse Ox 97 O2 Delivery Room Air Room Air Room Air Room Air 06/15/20 06/15/20 06/15/20 06/15/20 15:34 15:45 19:00 20:00 Temp 98.7 98.0 98.7 98.0 Pulse 73 64 Resp 18 18 B/P (MAP) 139/53 (81) 128/60 (82) Pulse Ox 95 96 O2 Delivery Room Air Room Air Room Air Room Air 06/15/20 06/16/20 06/16/20 23:00 03:00 07:00 Temp 98.1 98.6 98.6 98.1 98.6 98.6 Pulse 73 85 81 Resp 18 18 18 B/P (MAP) 124/46 (72) 165/59 (94) 110/47 (68) Pulse Ox 95 95 93 O2 Delivery Room Air Room Air Room Air Intake and Output 06/15/20 06/15/20 06/16/20 15:00 23:00 07:00 Intake Total 400 ml 300 ml 400 ml Output Total 1700 ml 650 ml Balance 400 ml -1400 ml -250 ml Justicifation of Admission Dx: Justifications for Admission: Justification of Admission Dx: Yes BOBBI MURRAY MD Jun 16, 2020 09:18
[2020-06-16 10:29] LABS: BASO % 1 % (0-3); EOS # 0.1 x10^3/uL (0.0-0.7); EOS % 1 % (0-3); HEMATOCRIT 23.4 % (36.0-47.0); HEMOGLOBIN 7.9 g/dL (12.0-15.5); LYMPH # 2.1 x10^3/uL (1.0-4.8); LYMPH % 24 % (24-48); MEAN CORPUSCULAR HEMOGLOBIN 33 pg (25-35); MEAN CORPUSCULAR HGB CONC 34 g/dL (31-37); MEAN CORPUSCULAR VOLUME 96 fL (79-100); MONO # 1.1 x10^3/uL (0.0-1.1); MONO % 13 % (0-9); NEUT # 5.6 x10^3/uL (1.8-7.7); NEUT % 63 % (31-73); PLATELET COUNT 247 x10^3/uL (140-400); RED BLOOD COUNT 2.43 x10^6/uL (3.50-5.40); RED CELL DISTRIBUTION WIDTH 14.2 % (11.5-14.5); WHITE BLOOD COUNT 8.9 x10^3/uL (4.0-11.0)
[2020-06-16] MEDS: METOPROLOL SUCC 24HR ER 25 MG TAB.ER.24H. PO SCH (10:36)
[2020-06-16] MEDS: amLODIPine BESYLATE 5 MG TABLET PO SCH (10:36)
[2020-06-16] MEDS: ENOXAPARIN 40 MG/0.4 ML SYRINGE. SQ SCH (10:36)
[2020-06-16] MEDS: HYDROcodone/APAP 5/325MG 1 TAB TABLET PO PRN (10:42)
[2020-06-16 11:06] VITALS: BP 137/53
[2020-06-16 12:49] LABS: ALBUMIN 2.2 g/dL (3.4-5.0); ALBUMIN/GLOBULIN RATIO 0.7 (1.0-1.7); CALCIUM 8.2 mg/dL (8.5-10.1); GFR 52.7; TOTAL PROTEIN 5.3 g/dL (6.4-8.2)
--- NOTE | 2020-06-16 13:23 | EKG ---
[facility] [address] [place] [address] Test Date: 2020-06-16 Test Time: 13:20:00 Pat Name: JEMAL MONTES Department: Room: 438 1 Gender: F [employer]: CHRIS : 1935 Requested By: BOBBI MURRAY Order Number: [id number] Reading MD: Measurements Intervals Viola Rate: 116 P: KS: QRS: 21 QRSD: 78 T: 13 QT: 318 QTc: 448 Interpretive Statements IRREGULAR RHYTHM, NO P-WAVE FOUND QRS(T) CONTOUR ABNORMALITY CONSISTENT WITH ANTEROSEPTAL INFARCT AGE UNDETERMINED ABNORMAL ECG RI6.02 Compared to ECG 06/11/2020 13:50:45 Sinus arrhythmia no longer present Myocardial infarct finding still present
--- NOTE | 2020-06-16 14:15 | NUR ---
Patient transferred to room 204 per bed. Report has been given to pt nurse. Belongings in room sent with patient, as well as chart. Receipt on chart for patient meds in pharmacy. Mr Vic Hancock informed of transfer, provided with room number, 2n desk ph number.
[2020-06-16 14:20] VITALS: BP 141/62
--- NOTE | 2020-06-16 17:39 | PDOC2 ---
[employer] [place] [employer] 06/16/20 1739: CARDIAC CONSULT DATE OF CONSULT Date of Consult DATE: 06/16/20 TIME: 17:25 REASON FOR CONSULT Reason for Consult: AFIB with RVR REFERRING PHYSICIAN Referring Physician: Dr. Hannah SOURCE Source: Chart review, Patient HISTORY OF PRESENT ILLNESS HISTORY OF PRESENT ILLNESS This is an 85 yo female who presented with right hip pain secondary to tripping on her puppy and falling at home. Underwent losed reduction intramedullary nailing of the right proximal femur fracture. Was reportedly noted in AFIB with RVR, although patient was not of tele. EKG obtained and shows SR/SA with bigeminal PVC's. Hr 115. Patient was transferred to [facility] for Cardizem gtt. Was in SR upon arrival to the 2nd floor. She denies any chest pain, palpitations, dizziness, diaphoresis, SOA, or nausea/vomiting. [place] [facility] [place] PAST MEDICAL HISTORY Cardiovascular: CAD (nonobstructive ), HTN, Hyperlipidemia, Aortic stenosis Renal/: Chronic renal insuff Endocrine: Hypothyroidism PAST SURGICAL HISTORY Past Surgical History: No pertinent history FAMILY HISTORY Family History: Hypertension SOCIAL HISTORY Smoke: No ALCOHOL: none Drugs: None Lives: with Family ALLERGIES ALLERGIES: Coded Allergies: erythromycin base (Verified Allergy, Intermediate, 11/05/17) ROS Review of System 14 point ROS conducted with pertinent positives noted above in HPI PHYSICAL EXAM General: Alert, Oriented X3, Cooperative, No acute distress HEENT: Atraumatic, Mucous membr. moist/pink Lungs: Clear to auscultation Heart: Regular rate Abdomen: Soft, No tenderness Extremities: No edema, Normal pulses Neuro: Normal speech, Sensation intact Psych/Mental Status: Mental status NL, Mood NL MUSCULOSKELETAL: Osteoarthritic changes both hands VITALS/I&O VITALS/I&O: Vital Signs Date Time Temp Pulse Resp B/P (MAP) Pulse Ox O2 Delivery O2 Flow Rate FiO2 06/16/20 14:35 97 Room Air 2.0 06/16/20 14:20 98.6 87 18 141/62 (88) 98.6 I & O 06/15/20 06/15/20 06/16/20 15:00 23:00 07:00 Intake Total 400 ml 300 ml 400 ml Output Total 1700 ml 650 ml Balance 400 ml -1400 ml -250 ml LABS Lab: Laboratory Tests Test 06/16/20 10:20 White Blood Count 8.9 x10^3/uL (4.0-11.0) Red Blood Count 2.43 x10^6/uL (3.50-5.40) L Hemoglobin 7.9 g/dL (12.0-15.5) L Hematocrit 23.4 % (36.0-47.0) L Mean Corpuscular Volume 96 fL (79-100) Mean Corpuscular Hemoglobin 33 pg (25-35) Mean Corpuscular Hemoglobin Concent 34 g/dL (31-37) Red Cell Distribution Width 14.2 % (11.5-14.5) Platelet Count 247 x10^3/uL (140-400) Neutrophils (%) (Auto) 63 % (31-73) Lymphocytes (%) (Auto) 24 % (24-48) Monocytes (%) (Auto) 13 % (0-9) H Eosinophils (%) (Auto) 1 % (0-3) Basophils (%) (Auto) 1 % (0-3) Neutrophils # (Auto) 5.6 x10^3/uL (1.8-7.7) Lymphocytes # (Auto) 2.1 x10^3/uL (1.0-4.8) Monocytes # (Auto) 1.1 x10^3/uL (0.0-1.1) Eosinophils # (Auto) 0.1 x10^3/uL (0.0-0.7) Basophils # (Auto) 0.0 x10^3/uL (0.0-0.2) Sodium Level 138 mmol/L (136-145) Potassium Level 4.0 mmol/L (3.5-5.1) Chloride Level 102 mmol/L (98-107) Carbon Dioxide Level 25 mmol/L (21-32) Anion Gap 11 (6-14) Blood Urea Nitrogen 16 mg/dL (7-20) Creatinine 1.0 mg/dL (0.6-1.0) Estimated GFR (Cockcroft-Gault) 52.7 BUN/Creatinine Ratio 16 (6-20) Glucose Level 135 mg/dL (70-99) H Calcium Level 8.2 mg/dL (8.5-10.1) L Total Bilirubin 1.0 mg/dL (0.2-1.0) Aspartate Amino Transferase (AST) 56 U/L (15-37) H Alanine Aminotransferase (ALT) 45 U/L (14-59) Alkaline Phosphatase 174 U/L (46-116) H Total Protein 5.3 g/dL (6.4-8.2) L Albumin 2.2 g/dL (3.4-5.0) L Albumin/Globulin Ratio 0.7 (1.0-1.7) L Free Thyroxine 1.53 ng/dL (0.76-1.46) H Laboratory Tests 06/16/20 10:20 Laboratory Tests 06/16/20 10:20 ECHOCARDIOGRAM ECHOCARDIOGRAM Technically difficult study; i.v. transpulmonary contrast was used to define the endocardial borders. Normal left ventricular systolic function, estimated ejection fraction is 65%. Probably borderline moderate diastolic dysfunction, eleavetd left atrial pressure. The right ventricle is normal size and function. M-Mode TAPSE 1.84 cm (normal >1.7 cm). Left Atrium: Mildly dilated. There is mitral annular calcification without stenosis. Mild mitral and tricuspid valve regurgitation. Severely sclerotic aortic valve, moderate stenosis (MG ~ 23 mmHg, peak velocity ~ 3 m/sec, DI= 0.25 , MADDISON= 0.90 cm), moderate regurgitation. Estimated Peak Systolic PA Pressure 38 mmHg 09/13/19 - 2-D + DOPPLER ECHOCARDIOGRAM HEART CATH HEART CATH 05/21/11: cath with moderate proximal LAD disease & mild to mod RCA disease ASSESSMENT/PLAN ASSESSMENT/PLAN 1. Traumatic mechanical fall with right femur fracture s/o surgical intervention 2. Arrhythmia; ? AFIB. Patient in SR upon arrival to [facility] with controlled rate. EKG with SR/SA with bigeminal PVC's. Echo 09/01 with preserved LV systolic function as noted above. 3. CAD; non-obstructive per cath 2010 4. Hypertension; controlled 5. Hyperlipidemia; statin therapy 6. Aortic stenosis, moderate. [place] [facility] [place]. Hypothyroidism ; levothyroxine 8. Anemia, postop Recommendations Tele monitoring Continue metoprolol for rate control. Uptitrate as warranted. No need to start Cardizem gtt at this time. Add ASA. Monitor H and H TSH, Mg level Consider outpatient event monitor; will defer to primary sheet music salesperson. Supportive care JACINTO SANTIZO MD 06/16/20 2322: CARDIAC CONSULT ASSESSMENT/PLAN ASSESSMENT/PLAN Pt. seen and examined. Agree with above SHEAR SETTER note. LIZ BIRMINGHAM APRN Jun 16, 2020 17:39 JACINTO SANTIZO MD Jun 16, 2020 23:22
[2020-06-16 18:59] LABS: CHOLESTEROL/HDL RATIO 4.5
[2020-06-16 19:20] VITALS: BP 167/55
[2020-06-16 22:15] VITALS: BP 151/62
[2020-06-17 02:47] VITALS: BP 158/75
[2020-06-17 07:00] VITALS: BP 137/46
[2020-06-17] MEDS ORDERED: ASPIRIN ENTERIC COATED 81 MG TABLET.DR. PO SCH (08:00)
[2020-06-17] MEDS: METOPROLOL SUCC 24HR ER 25 MG TAB.ER.24H. PO SCH (08:29)
[2020-06-17] MEDS: HYDROcodone/APAP 5/325MG 1 TAB TABLET PO PRN ×3 (08:30→22:32)
[2020-06-17] MEDS: ENOXAPARIN 40 MG/0.4 ML SYRINGE. SQ SCH (08:30)
[2020-06-17] MEDS: LEVOTHYROXINE 100 MCG TABLET PO SCH (08:30)
[2020-06-17] MEDS: amLODIPine BESYLATE 5 MG TABLET PO SCH (08:30)
--- NOTE | 2020-06-17 08:31 | PDOC ---
[employer] PROGRESS NOTE Date of Service DOS: DATE: 06/17/20 TIME: 08:28 Chief Complaint Chief Complaint A/P: mechanical fall, tripped by her dog acute right intertrochanteric right hip fracture - s/p IM nailing 06/12/2020 htn, 3 agents hypothyroid CAD HLD Aortic stenosis History of Present Illness History of Present Illness Ms Juliocesar is an 85yo F w/ PMHx CAD, HTN, HLD, aortic stenosis admitted with right hip pain secondary to tripping on her puppy and falling at home. Underwent closed reduction intramedullary nailing of the right proximal femur fracture. Was reportedly noted in AFIB with RVR on 06/16/2020, however EKG obtained and shows SR/SA with bigeminal PVC's. Hr 115. Patient was transferred to [facility] for Cardizem gtt. Was in SR upon arrival to the 2nd floor. She denies any chest pain, palpitations, dizziness, diaphoresis, SOA, or nausea/vomiting. Follows with Dr. Galvan. 06/16: still having a lot of trouble with pain, does not want to get up. does not want nichole removed, is worried about skilled placement. Transferred to [facility] for concern for rapid heart rate. Nichole out. Pain better controlled. Worked with PT recommended skilled ser vices/SNF on discharge. K3.7, Hb 7.6. Multiple PVCs and some PACs on telemetry monitoring no clear atrial fibrillation or atrial flutter noted. PT try to DC soon, skilled as able DVT PPX -warfarin. Vitals/I&O Vitals/I&O: Vital Signs Date Time Temp Pulse Resp B/P (MAP) Pulse Ox O2 Delivery O2 Flow Rate FiO2 06/17/20 07:00 98.8 78 20 137/46 (76) 94 Room Air 98.8 06/16/20 14:35 2.0 I & O 06/16/20 06/16/20 06/17/20 14:59 22:59 06:59 Intake Total 600 ml 380 ml 320 ml Balance 600 ml 380 ml 320 ml Physical Exam General: Alert, Oriented X3, Cooperative, No acute distress Heart: Regular rate Abdomen: Soft, No tenderness Extremities: No edema, Normal pulses Skin: No rashes Labs Labs: Laboratory Tests Test 06/16/20 10:20 06/16/20 18:10 06/16/20 18:20 White Blood Count 8.9 x10^3/uL (4.0-11.0) Red Blood Count 2.43 x10^6/uL (3.50-5.40) Hemoglobin 7.9 g/dL (12.0-15.5) Hematocrit 23.4 % (36.0-47.0) Mean Corpuscular Volume 96 fL (79-100) Mean Corpuscular Hemoglobin 33 pg (25-35) Mean Corpuscular Hemoglobin Concent 34 g/dL (31-37) Red Cell Distribution Width 14.2 % (11.5-14.5) Platelet Count 247 x10^3/uL (140-400) Neutrophils (%) (Auto) 63 % (31-73) Lymphocytes (%) (Auto) 24 % (24-48) Monocytes (%) (Auto) 13 % (0-9) Eosinophils (%) (Auto) 1 % (0-3) Basophils (%) (Auto) 1 % (0-3) Neutrophils # (Auto) 5.6 x10^3/uL (1.8-7.7) Lymphocytes # (Auto) 2.1 x10^3/uL (1.0-4.8) Monocytes # (Auto) 1.1 x10^3/uL (0.0-1.1) Eosinophils # (Auto) 0.1 x10^3/uL (0.0-0.7) Basophils # (Auto) 0.0 x10^3/uL (0.0-0.2) Sodium Level 138 mmol/L (136-145) Potassium Level 4.0 mmol/L (3.5-5.1) Chloride Level 102 mmol/L (98-107) Carbon Dioxide Level 25 mmol/L (21-32) Anion Gap 11 (6-14) Blood Urea Nitrogen 16 mg/dL (7-20) Creatinine 1.0 mg/dL (0.6-1.0) Estimated GFR (Cockcroft-Gault) 52.7 BUN/Creatinine Ratio 16 (6-20) Glucose Level 135 mg/dL (70-99) Calcium Level 8.2 mg/dL (8.5-10.1) Total Bilirubin 1.0 mg/dL (0.2-1.0) Aspartate Amino Transf (AST/SGOT) 56 U/L (15-37) Alanine Aminotransferase (ALT/SGPT) 45 U/L (14-59) Alkaline Phosphatase 174 U/L (46-116) Total Protein 5.3 g/dL (6.4-8.2) Albumin 2.2 g/dL (3.4-5.0) Albumin/Globulin Ratio 0.7 (1.0-1.7) Free Thyroxine 1.53 ng/dL (0.76-1.46) Magnesium Level 2.2 mg/dL (1.8-2.4) Thyroid Stimulating Hormone (TSH) 0.723 uIU/mL (0.358-3.74) Triglycerides Level 148 mg/dL (0-150) Cholesterol Level 172 mg/dL (0-200) LDL Cholesterol, Calculated 104 mg/dL (0-100) VLDL Cholesterol, Calculated 30 mg/dL (0-40) Non-HDL Cholesterol Calculated 134 mg/dL (0-129) HDL Cholesterol 38 mg/dL (40-60) Cholesterol/HDL Ratio 4.5 Assessment and Plan Assessmemt and Plan Problems Medical Problems: (1) Intertrochanteric fracture of right hip Status: Acute Comment Review of Relevant I have reviewed the following items kiran (where applicable) has been applied. Justicifation of Admission Dx: Justifications for Admission: Justification of Admission Dx: Yes ANKIT BAZZI MD Jun 17, 2020 08:31
[2020-06-17] MEDS: DOCUSATE SODIUM 100 MG CAPSULE. PO PRN (08:32)
--- NOTE | 2020-06-17 09:22 | NUR ---
SS following up with discharge planning. SS reviewed pt chart and discussed with pt RN. Pt transferred from 4th floor. PT/OT recommending shelter unit. Pt accepted at [facility], ; fax [phone], pending insurance authorization from [facility]. New COVID19 test ordered per request from [facility]. SS currently awaiting insurance authorization for shelter unit and COVID19 results. SS will continue to follow for discharge planning.
--- NOTE | 2020-06-17 09:59 | CARD ---
MR#: [id number] Date of Study: 06/16/2020 Ordering Physician: BOBBI MURRAY, Referring Physician: BOBBI MURRAY, Tech: Tonie Hall APPROVED REPORT EXAM: Two-dimensional and M-mode echocardiogram with Doppler and color Doppler. Other Information Quality : AverageHR: 75bpm INDICATION Arrhythmia Abnormal EKG 2D DIMENSIONS Left Atrium(2D)3.8 (1.6-4.0cm)IVSd1.1 (0.7-1.1cm) Aortic Root(2D)3.1 (2.0-3.7cm)LVDd4.6 (3.9-5.9cm) LVOT Diameter2.0 (1.8-2.4cm)PWd1.0 (0.7-1.1cm) LVDs3.1 (2.5-4.0cm)FS (%) 32.8 % SV58.4 mlLVEF(%)61.3 (>50%) Aortic Valve AoV Peak Rusty.291.8cm/sAoV VTI86.5cm AO Peak GR.34.1mmHgLVOT VTI 21.17cm AO Mean GR.31mmHgAI P 1/2 [id number] Mitral Valve MV E Dlkhtkpz085.8cm/sMV E Peak Gr.9mmHg MV DECEL [id number] A Ggbbqpbf467.1cm/s MV E Mean Gr.4mmHgE/A Ratio1.4 TDI Lateral E' P. V9.53cm/sMedial E' P. V8.82cm/s E/Lateral E'14.5E/Medial E'15.6 Tricuspid Valve TR P. Viktgtbb314nc/sRAP CMMRWPPU0odTx TR Peak Gr.53qjXwIBOD81ohPw Pulmonary Vein S1 Ubqezpxt72.9cm/sS2 Yorzxgef69.51cm/s D2 Hlbzapbo66.5cm/sPVa frjpvljl16zslc LEFT VENTRICLE The left ventricle is normal size. There is normal left ventricular wall thickness. The left ventricu lar systolic function is normal. The Ejection Fraction is 50-55%. There is normal LV segmental wall m otion. Transmitral Doppler flow pattern is Grade II-pseudonormal filling dynamics. RIGHT VENTRICLE The right ventricle is normal size. There is normal right ventricular wall thickness. The right ventr icular systolic function is normal. ATRIA The left atrium is mildly dilated. The right atrium size is normal. The interatrial septum is intact with no evidence for an atrial septal defect or patent foramen ovale as noted on 2-D or Doppler imagi ng. AORTIC VALVE The aortic valve is thickened but opens well. Doppler and Color Flow revealed trace aortic regurgitat ion. Calculated aortic valve area is .91 cm2 with maximum pressure gradient of 50 mmHg and mean press ure gradient of 31 mmHg. There is moderate valvular aortic stenosis. MITRAL VALVE The mitral valve is normal in structure and function. There is no evidence of mitral valve prolapse. There is no mitral valve stenosis with an mean gradient of 3.91 mmHg. Doppler and Color-flow revealed mild mitral regurgitation. TRICUSPID VALVE The tricuspid valve is normal in structure and function. Doppler and Color Flow revealed mild tricusp id regurgitation with an estimated PAP of 54 mmHg. There is no tricuspid valve stenosis. GREAT VESSELS The aortic root is normal in size. The IVC is normal in size and collapses >50% with inspiration. PERICARDIAL EFFUSION There is no evidence of significant pericardial effusion. Critical Notification Critical Value: No <Conclusion> The left ventricular systolic function is normal. The Ejection Fraction is 50-55%. There is normal LV segmental wall motion. There is moderate valvular aortic stenosis. Mild mitral regurgitation. Mild tricuspid regurgitation with an estimated PAP of 54 mmHg. There is no evidence of significant pericardial effusion. Signed by : Gabe Hanson, Electronically Approved : 06/17/2020 09:58:41
[2020-06-17 10:48] VITALS: BP 139/43
--- NOTE | 2020-06-17 10:53 | PDOC ---
LIZ BIRMINGHAM ADMISSIONS DEAN 06/17/20 1053: CARDIO Progress Notes Date and Time Date of Service 06/17/20 Time of Evaluation 1040 Subjective Subjective: No Chest Pain, No shortness of breath, No Palpitations Vitals Vitals Vital Signs Date Time Temp Pulse Resp B/P (MAP) Pulse Ox O2 Delivery O2 Flow Rate FiO2 06/17/20 08:30 90 06/17/20 07:00 98.8 20 137/46 (76) 94 Room Air 98.8 06/16/20 14:35 2.0 Weight Weight [ ] Input and Output Intake and Output Intake and Output 06/17/20 07:00 Intake Total 1300 ml Balance 1300 ml Intake Oral 1300 ml # Voids 2 Laboratory Labs Laboratory Tests Test 06/16/20 18:10 06/16/20 18:20 Magnesium Level 2.2 mg/dL (1.8-2.4) Thyroid Stimulating Hormone (TSH) 0.723 uIU/mL (0.358-3.74) Triglycerides Level 148 mg/dL (0-150) Cholesterol Level 172 mg/dL (0-200) LDL Cholesterol, Calculated 104 mg/dL (0-100) VLDL Cholesterol, Calculated 30 mg/dL (0-40) Non-HDL Cholesterol Calculated 134 mg/dL (0-129) HDL Cholesterol 38 mg/dL (40-60) Cholesterol/HDL Ratio 4.5 Physical Exam HEENT: Neck Supple W Full Motion Chest: Symmetric LUNGS: Clear to Auscultation Heart: S1S2, RRR Abdomen: Soft N/T Extremities: Other (trace bilateral LE edema ) Neurology: alert, oriented, follow commands Assessment Assessment 1. Traumatic mechanical fall with right femur fracture s/o surgical intervention 2. Arrhythmia; Mainly SR. Few bursts of probable AFIB noted overnight on tele. Review of [facility] records notes possible SSS 3. CAD; non-obstructive per cath 2010 4. Hypertension; controlled 5. Hyperlipidemia; statin therapy 6. Aortic stenosis, moderate. [place]. Galvan [place] [facility] [place]. Hypothyroidism; TSH 1.5. Adjustment as per PCP 8. Anemia, postop Recommendations Continue metoprolol for rate control. Will not uptitrate at this time due to h/o concerns for SSS Will discontinue ASA therapy as patient has been started on warfarin therapy and is anemic Outpatient event monitor; patient would like to have this conducted through primary pest technician, Dr. Galvan. Supportive car Justicifation of Admission Dx: Justifications for Admission: Justification of Admission Dx: Yes JACINTO SANTIZO MD 06/17/20 1357: CARDIO Progress Notes Plan Plan Pt. seen and examined. Agree with above STRAIGHT LINE EDGER note. Tele reviewed. No acute issues. F/u with Dr. Galvan. Thanks LIZ BIRMINGHAM APRN Jun 17, 2020 10:53 JACINTO SANTIZO MD Jun 17, 2020 13:57
[2020-06-17 11:00] LABS: CALCIUM 8.6 mg/dL (8.5-10.1); GFR 52.7; POTASSIUM 3.7 mmol/L (3.5-5.1)
[2020-06-17 11:09] LABS: BASO % 1 % (0-3); EOS # 0.3 x10^3/uL (0.0-0.7); EOS % 4 % (0-3); HEMATOCRIT 22.9 % (36.0-47.0); HEMOGLOBIN 7.6 g/dL (12.0-15.5); LYMPH % 25 % (24-48); MEAN CORPUSCULAR HEMOGLOBIN 32 pg (25-35); MEAN CORPUSCULAR HGB CONC 33 g/dL (31-37); MEAN CORPUSCULAR VOLUME 97 fL (79-100); MONO # 1.1 x10^3/uL (0.0-1.1); MONO % 14 % (0-9); NEUT # 4.6 x10^3/uL (1.8-7.7); NEUT % 57 % (31-73); PLATELET COUNT 272 x10^3/uL (140-400); RED BLOOD COUNT 2.36 x10^6/uL (3.50-5.40); RED CELL DISTRIBUTION WIDTH 14.1 % (11.5-14.5)
[2020-06-17] MEDS ORDERED: POTASSIUM CHLORIDE 20 MEQ TABLET.ER. PO ONE (12:00)
[2020-06-17 14:28] VITALS: BP 167/65
[2020-06-17] MEDS ORDERED: WARFARIN 7.5 MG TABLET. PO ONE (16:00)
[2020-06-17 19:00] VITALS: BP 141/52
[2020-06-17 22:56] VITALS: BP 145/94
[2020-06-18 02:36] VITALS: BP 147/55
[2020-06-18 07:00] VITALS: BP 145/44
[2020-06-18 07:35] LABS: PROTHROMBIN TIME PATIENT 12.5 SEC (11.7-14.0)
[2020-06-18] MEDS: LEVOTHYROXINE 100 MCG TABLET PO SCH (08:16)
[2020-06-18] MEDS: amLODIPine BESYLATE 5 MG TABLET PO SCH (09:06)
[2020-06-18] MEDS: METOPROLOL SUCC 24HR ER 25 MG TAB.ER.24H. PO SCH (09:06)
[2020-06-18] MEDS ORDERED: WARF-31 PO (10:47)
--- NOTE | 2020-06-18 10:49 | SNU/HH DC ---
DISCHARGE ORDERS DISCHARGE INFORMATION: DISCHARGE DATE: Jun 18, 2020 FINAL DIAGNOSIS Problems Medical Problems: (1) Intertrochanteric fracture of right hip Status: Acute CONDITION ON DISCHARGE: Stable CODE STATUS: Code Status: Full [facility]: SNF STAY <30 DAYS: Yes POST DISCHARGE ORDERS: ACTIVITY ORDERS: No restrictions, Activity as tolerated WEIGHT BEARING STATUS: Full weight bearing, As tolerated DIET AFTER DISCHARGE: Regular WOUND/INCISION CARE: Ice to area for comfort, Keep wound elevated, Change dressing FOLLOW-UP: PHYSICIAN FOLLOW-UP: Cardiology - event monitor ADDITIONAL FOLLOW-UP: ortho 2 weeks LAB ORDERS FOR FOLLOW-UP: INR daily, goal 2-3, no bridging necessary TREATMENT/EQUIPMENT ORDERS: ADAPTIVE EQUIPMENT NEEDED: Front wheeled walker Physical Therapy For: Evalulation/Treatment Occupational Therapy For: Evaluation/Treatment DISCHARGE MEDICATIONS: Home Meds Active Scripts Metoprolol Succinate (METOPROLOL SUCCINATE ( XL )) 25 Mg Tab.er.24h, 25 MG PO DAILY for FOR HYPERTENSION, #30 TAB 0 Refills Prov:ANKIT BAZZI MD 06/18/20 Warfarin Sodium (WARFARIN SODIUM) 5 Mg Tablet, 5 MG PO DAILY for DVT ppx for 30 Days, #30 TAB Prov:ANKIT BAZZI MD 06/18/20 Docusate Sodium (COLACE) 100 Mg Capsule, 100 MG PO DAILY for prevent constipation, #30 EACH Prov:DINO GLASS MD 06/14/20 Hydrocodone Bit/Acetaminophen (HYDROCODONE-APAP 5-325 ) 1 Tab Tablet, 1 TAB PO PRN Q4HRS PRN for PAIN, #30 TAB Prov:DINO GLASS MD 06/14/20 Reported Medications Atorvastatin Calcium (ATORVASTATIN CALCIUM) 40 Mg Tablet, 40 MG PO HS for FOR CHOLESTEROL, #30 TAB 0 Refills 06/11/20 Lisinopril (LISINOPRIL) 20 Mg Tablet, 20 MG PO BID for FOR HYPERTENSION, #30 TAB 0 Refills 06/11/20 Cetirizine HCl (Wal-Zyr) 10 Mg Capsule, 10 MG PO PRN DAILY PRN for ALLERGIES, CAP 11/05/17 Multivitamin (MULTI VITAMIN DAILY) 1 Each Tablet, 1.5 EACH PO DAILY, TAB 11/05/17 Calcium Citrate/Vitamin D3 (CALCITRATE + VIT D CAPLET) 1 Each Tablet, 1 EACH PO DAILY, TAB 11/05/17 Levothyroxine Sodium (LEVOTHYROXINE SODIUM) 100 Mcg Tablet, 100 MCG PO DAILYAC for THYROID SUPPLEMENT, #30 TAB 0 Refills 11/05/17 Amlodipine Besylate (AMLODIPINE BESYLATE) 5 Mg Tablet, 5 MG PO DAILY, TAB 11/05/17 Discontinued Reported Medications Aspirin (ASPIRIN) 81 Mg Tab.chew, 81 MG PO DAILY, TAB.CHEW 11/05/17 Lisinopril (LISINOPRIL) 40 Mg Tablet, 40 MG PO DAILY for FOR HYPERTENSION, #30 TAB 0 Refills 11/05/17 ANKIT BAZZI MD Jun 18, 2020 10:49
--- NOTE | 2020-06-18 10:49 | NUR ---
Report called to [facility] at 1047, discussed meds, Cardio ff up with Dr. Galvan for outpatient event monitor. She verbalized understanding.
[2020-06-18] MEDS ORDERED: METO-239 PO (10:51)
[2020-06-18 10:55] VITALS: BP 139/53
--- NOTE | 2020-06-18 11:01 | PDOC ---
[employer] PROGRESS NOTE Date of Service DOS: DATE: 06/18/20 TIME: 10:59 Chief Complaint Chief Complaint A/P: mechanical fall, tripped by her dog acute right intertrochanteric right hip fracture - s/p IM nailing 06/12/2020 htn, 3 agents hypothyroid CAD HLD Aortic stenosis History of Present Illness History of Present Illness Ms Juliocesar is an 85yo F w/ PMHx CAD, HTN, HLD, aortic stenosis admitted with right hip pain secondary to tripping on her puppy and falling at home. Underwent closed reduction intramedullary nailing of the right proximal femur fracture. Was reportedly noted in AFIB with RVR on 06/16/2020, however EKG obtained and shows SR/SA with bigeminal PVC's. Hr 115. Patient was transferred to [facility] for Cardizem gtt. Was in SR upon arrival to the 2nd floor. She denies any chest pain, palpitations, dizziness, diaphoresis, SOA, or nausea/vomiting. Follows with Dr. Galvan. 06/16: still having a lot of trouble with pain, does not want to get up. does not want nichole removed, is worried about skilled placement. Transferred to [facility] for concern for rapid heart rate. 06/17: Nichole out. Pain better controlled. Worked with PT recommended skilled services/SNF on discharge. K3.7, Hb 7.6. Multiple PVCs and some PACs on telemetry monitoring no clear atrial fibrillation or atrial flutter noted. Afebrile. No shortness of breath or chest pain. Some more right lower extremity swelling today. INR is 1, on Coumadin. ASA held for hemoglobin 7 6. She is ambulating reasonably well plans to go to SNF today. PT US RLE Follow cardiology outpatient Follow-up with him in 2 weeks DVT PPX -warfarin 6 weeks D/C to SNF Vitals/I&O Vitals/I&O: Vital Signs Date Time Temp Pulse Resp B/P (MAP) Pulse Ox O2 Delivery O2 Flow Rate FiO2 06/18/20 10:55 98.1 80 16 139/53 (81) 96 Room Air 98.1 I & O 06/17/20 06/17/20 06/18/20 14:59 22:59 06:59 Intake Total 300 ml 0 ml Output Total 400 ml Balance 300 ml -400 ml 0 ml Physical Exam General: Alert, Oriented X3, Cooperative, No acute distress Heart: Regular rate Abdomen: Soft, No tenderness Extremities: No edema, Normal pulses Skin: No rashes Labs Labs: Laboratory Tests Test 06/17/20 13:00 06/18/20 06:40 Coronavirus (PCR) Not detected (Not Detected) Prothrombin Time 12.5 SEC (11.7-14.0) Prothromb Time International Ratio 1.0 (0.8-1.1) Assessment and Plan Assessmemt and Plan Problems Medical Problems: (1) Intertrochanteric fracture of right hip Status: Acute Comment Review of Relevant I have reviewed the following items kiran (where applicable) has been applied. Medications: Current Medications Medications (Trade) Dose Ordered Sig/Neftali Route PRN Reason Start Time Stop Time Status Last Admin Dose Admin Warfarin Sodium (Coumadin) 7.5 mg 1X ONCE PO 06/17/20 16:00 06/17/20 16:01 DC 06/17/20 16:43 Potassium Chloride (Klor-Con) 20 meq 1X ONCE PO 06/17/20 12:00 06/17/20 12:01 DC 06/17/20 12:55 Justicifation of Admission Dx: Justifications for Admission: Justification of Admission Dx: Yes ANKIT BAZZI MD Jun 18, 2020 11:01
--- NOTE | 2020-06-18 11:03 | PDOC3 ---
Discharge Summary Visit Information Date of Admission: Jun 11, 2020 Date of Discharge: Jun 18, 2020 Admitting Diagnosis: Right hip fracture Final Diagnosis Problems Medical Problems: (1) Intertrochanteric fracture of right hip Status: Acute Brief Hospital Course Allergies Allergies Coded Allergies Type Severity Reaction Last Updated Verified erythromycin base Allergy Intermediate 11/05/17 Yes Vital Signs Vital Signs Date Time Temp Pulse Resp B/P (MAP) Pulse Ox O2 Delivery O2 Flow Rate FiO2 06/18/20 10:55 98.1 80 16 139/53 (81) 96 Room Air 98.1 Lab Results Laboratory Tests Test 06/16/20 18:10 06/16/20 18:20 06/17/20 10:30 06/17/20 13:00 Magnesium Level 2.2 mg/dL (1.8-2.4) Thyroid Stimulating Hormone (TSH) 0.723 uIU/mL (0.358-3.74) Triglycerides Level 148 mg/dL (0-150) Cholesterol Level 172 mg/dL (0-200) LDL Cholesterol, Calculated 104 mg/dL (0-100) VLDL Cholesterol, Calculated 30 mg/dL (0-40) Non-HDL Cholesterol Calculated 134 mg/dL (0-129) HDL Cholesterol 38 mg/dL (40-60) Cholesterol/HDL Ratio 4.5 White Blood Count 8.0 x10^3/uL (4.0-11.0) Red Blood Count 2.36 x10^6/uL (3.50-5.40) Hemoglobin 7.6 g/dL (12.0-15.5) Hematocrit 22.9 % (36.0-47.0) Mean Corpuscular Volume 97 fL (79-100) Mean Corpuscular Hemoglobin 32 pg (25-35) Mean Corpuscular Hemoglobin Concent 33 g/dL (31-37) Red Cell Distribution Width 14.1 % (11.5-14.5) Platelet Count 272 x10^3/uL (140-400) Neutrophils (%) (Auto) 57 % (31-73) Lymphocytes (%) (Auto) 25 % (24-48) Monocytes (%) (Auto) 14 % (0-9) Eosinophils (%) (Auto) 4 % (0-3) Basophils (%) (Auto) 1 % (0-3) Neutrophils # (Auto) 4.6 x10^3/uL (1.8-7.7) Lymphocytes # (Auto) 2.0 x10^3/uL (1.0-4.8) Monocytes # (Auto) 1.1 x10^3/uL (0.0-1.1) Eosinophils # (Auto) 0.3 x10^3/uL (0.0-0.7) Basophils # (Auto) 0.0 x10^3/uL (0.0-0.2) Sodium Level 139 mmol/L (136-145) Potassium Level 3.7 mmol/L (3.5-5.1) Chloride Level 104 mmol/L (98-107) Carbon Dioxide Level 30 mmol/L (21-32) Anion Gap 5 (6-14) Blood Urea Nitrogen 17 mg/dL (7-20) Creatinine 1.0 mg/dL (0.6-1.0) Estimated GFR (Cockcroft-Gault) 52.7 Glucose Level 108 mg/dL (70-99) Calcium Level 8.6 mg/dL (8.5-10.1) Iron Level 46 ug/dL (50-170) Total Iron Binding Capacity 185 ug/dL (250-450) Iron Saturation 25 % (15-34) Coronavirus (PCR) Not detected (Not Detected) Test 06/18/20 06:40 Prothrombin Time 12.5 SEC (11.7-14.0) Prothromb Time International Ratio 1.0 (0.8-1.1) Laboratory Tests Test 06/17/20 13:00 06/18/20 06:40 Coronavirus (PCR) Not detected (Not Detected) Prothrombin Time 12.5 SEC (11.7-14.0) Prothromb Time International Ratio 1.0 (0.8-1.1) Brief Hospital Course Ms Gandara is an 85yo F w/ PMHx CAD, HTN, HLD, aortic stenosis admitted with right hip pain secondary to tripping on her puppy and falling at home. Underwent closed reduction intramedullary nailing of the right proximal femur fracture. Was reportedly noted in AFIB with RVR on 06/16/2020, however EKG obtained and shows SR/SA with bigeminal PVC's. Hr 115. Patient was transferred to [facility] for Cardizem gtt. Was in SR upon arrival to the 2nd floor. She denies any chest pain, palpitations, dizziness, diaphoresis, SOA, or nausea/vomiting. Follows milad Galvan. 06/16: still having a lot of trouble with pain, does not want to get up. does not want nichole removed, is worried about skilled placement. Transferred to [facility] for concern for rapid heart rate. 06/17: Nichole out. Pain better controlled. Worked with PT recommended skilled services/SNF on discharge. K3.7, Hb 7.6. Multiple PVCs and some PACs on telemetry monitoring no clear atrial fibrillation or atrial flutter noted. Afebrile. No shortness of breath or chest pain. Some more right lower extremi ty swelling today. INR is 1, on Coumadin. ASA held for hemoglobin 7 6. She is ambulating reasonably well plans to go to SNF today. Problem list: mechanical fall, tripped by her dog acute right intertrochanteric right hip fracture - s/p IM nailing 06/12/2020 htn, 3 agents hypothyroid CAD HLD Aortic stenosis Plan: PT RLE Follow cardiology outpatient Follow-up with him in 2 weeks DVT PPX -warfarin 6 weeks D/C to SNF Greater than 30 minutes spent on d/c to SNF - HCR Discharge Information Condition at Discharge: Improved Follow Up: Weeks (1) Disposition/Orders: D/C to Another Facility Scheduled Amlodipine Besylate (Amlodipine Besylate) 5 Mg Tablet, 5 MG PO DAILY, (Reported) Entered as Reported by: ARMANDO MAY on 11/05/171628 Last Action: Continued on 06/11/201745 by DINO GLASS Atorvastatin Calcium (Atorvastatin Calcium) 40 Mg Tablet, 40 MG PO HS for FOR CHOLESTEROL, #30 Ref 0 (Reported) Entered as Reported by: JANIA JOHNSON on 06/11/202117 Last Action: New Order on 06/11/202117 by JANIA JOHNSON Calcium Citrate/Vitamin D3 (Calcitrate + Vit D Caplet) 1 Each Tablet, 1 EACH PO DAILY, (Reported) Entered as Reported by: ARMANDO MAY on 11/05/171628 Last Action: HELD on 06/11/201745 by DINO GLASS Docusate Sodium (Colace) 100 Mg Capsule, 100 MG PO DAILY for prevent constipation, #30 Prescribed by: DINO GLASS on 06/14/20 1433 Levothyroxine Sodium (Levothyroxine Sodium) 100 Mcg Tablet, 100 MCG PO DAILYAC for THYROID SUPPLEMENT, #30 Ref 0 (Reported) Entered as Reported by: ARMANDO MAY on 11/05/171628 Last Action: Continued on 06/11/201745 by DINO GLASS Lisinopril (Lisinopril) 20 Mg Tablet, 20 MG PO BID for FOR HYPERTENSION, #30 Ref 0 (Reported) Entered as Reported by: JANIA JOHNSON on 06/11/202117 Last Action: New Order on 06/11/202117 by JANIA JOHNSON Metoprolol Succinate (Metoprolol Succinate ( Xl )) 25 Mg Tab.er.24h, 25 MG PO DAILY for FOR HYPERTENSION, #30 Ref 0 Prescribed by: ANKIT BAZZI MD on 06/18/20 1051 Multivitamin (Multi Vitamin Daily) 1 Each Tablet, 1.5 EACH PO DAILY, (Reported) Entered as Reported by: ARMANDO MAY on 11/05/171628 Last Action: HELD on 06/11/201745 by DINO GLASS Warfarin Sodium (Warfarin Sodium) 5 Mg Tablet, 5 MG PO DAILY for DVT ppx for 30 Days, #30 Prescribed by: ANKIT BAZZI MD on 06/18/20 1047 Scheduled PRN Cetirizine HCl (Wal-Zyr) 10 Mg Capsule, 10 MG PO PRN DAILY PRN for ALLERGIES, (Reported) Entered as Reported by: ARMANDO MAY on 11/05/171628 Last Action: HELD on 06/11/201745 by DINO GLASS Hydrocodone Bit/Acetaminophen (Hydrocodone-Apap 5-325 ) 1 Tab Tablet, 1 TAB P O PRN Q4HRS PRN for PAIN, #30 Prescribed by: DINO GLASS on 06/14/20 1433 Discontinued Medications Aspirin (Aspirin) 81 Mg Tab.chew, 81 MG PO DAILY, (Reported) Entered as Reported by: ARMANDO MAY on 11/05/171628 Last Action: HELD on 06/11/201745 by DINO GLASS Lisinopril (Lisinopril) 40 Mg Tablet, 40 MG PO DAILY for FOR HYPERTENSION, #30 Ref 0 (Reported) Entered as Reported by: ARMANDO MAY on 11/05/171628 Last Action: HELD on 06/11/20 1746 by DINO GLASS Justicifation of Admission Dx: Justifications for Admission: Justification of Admission Dx: Yes ANKIT BAZZI MD Jun 18, 2020 11:03
--- NOTE | 2020-06-18 11:11 | NUR ---
SS following up with discharge planning. SS reviewed pt chart and discussed with pt RN. Pt accepted at [facility], ; fax [phone]. COVID19 negative. Insurance authorization received for intermediate unit. Discharge orders phoned and faxed to [facility]. Pt will discharge today and go to [facility] at 1400. [facility] to provide transportation. Pt, pt's RN, and pt's family notified.
--- NOTE | 2020-06-18 12:17 | PDOC ---
ELIE PÉREZ INTRAVENOUS THERAPY NURSE 06/18/20 1217: CARDIO Progress Notes Date and Time Date of Service 06/18/2020 Time of Evaluation 1000 Subjective Subjective: No Chest Pain, No shortness of breath, No Palpitations Vitals Vitals Vital Signs Date Time Temp Pulse Resp B/P (MAP) Pulse Ox O2 Delivery O2 Flow Rate FiO2 06/18/20 10:55 98.1 80 16 139/53 (81) 96 Room Air 98.1 Weight Weight [ ] Input and Output Intake and Output Intake and Output 06/18/20 07:00 Intake Total 300 ml Output Total 1000 ml Balance -700 ml Intake Oral 300 ml Output Urine Total 1000 ml # Voids 4 Laboratory Labs Laboratory Tests Test 06/17/20 13:00 06/18/20 06:40 Coronavirus (PCR) Not detected (Not Detected) Prothrombin Time 12.5 SEC (11.7-14.0) Prothromb Time International Ratio 1.0 (0.8-1.1) Physical Exam HEENT: Neck Supple W Full Motion Chest: Symmetric LUNGS: Clear to Auscultation Heart: S1S2, RRR (SR) Abdomen: Soft N/T Extremities: Other (trace bilateral LE edema ) Neurology: alert, oriented, follow commands Assessment Assessment 1. Traumatic mechanical fall with right femur fracture s/p surgical intervention 2. PAFIB: new? maintaing SR. Review of [facility] records notes possible SSS. No pauses 3. CAD; non-obstructive per cath 2010 4. Hypertension; controlled 5. Hyperlipidemia; statin therapy 6. Aortic stenosis, moderate. Follows with Dr. Galvan of [facility] 7. Hypothyroidism; TSH 1.5. Adjustment as per PCP 8. Anemia, postop Recommendations Continue metoprolol for rate control. Will not uptitrate at this time due to h/o concerns for SSS Will discontinue ASA therapy as patient has been started on warfarin therapy and is anemic Outpatient event monitor; patient would like to have this conducted through primary customer service voice, Dr. Galvan. May DC per cardiac standpoint. Would include statin low dose in her regimen Justicifation of Admission Dx: Justifications for Admission: Justification of Admission Dx: Yes JACINTO SANTIZO MD 06/18/20 1809: ELIE PÉREZ APRN Jun 18, 2020 12:17 JACINTO SANTIZO MD Jun 18, 2020 18:09
[2020-06-18] MEDS: HYDROcodone/APAP 5/325MG 1 TAB TABLET PO PRN (12:41)
--- NOTE | 2020-06-18 12:59 | RAD ---
VENOUS LOWER EXTREMITY RIGHT 06/18/2020 10:47 AM Clinical Information: Postoperative resolving Comparison: None. Technique: Multiple grayscale, color Doppler, and spectral Doppler sonographic images of the lower extremity venous structures were obtained. Findings: The right common femoral, femoral, and popliteal veins exhibit normal compression, respiratory phasicity, and augmentation. No intraluminal thrombi are identified. Color Doppler flow is demonstrated in the right posterior tibial veins. Greater saphenous veins are patent at the saphenofemoral junction. Impression: 1. No evidence of deep venous thrombosis. Electronically signed by: Shefali Jin MD (06/18/2020 12:56 PM) [id number]
--- NOTE | 2020-06-18 14:08 | NUR ---
Discharge Note: JEMAL MONTES [place] Discharge instructions and discharge home medications reviewed with Coco CIFUENTES of [facility] at 1047 and a copy given. All questions have been answered and understanding verbalized. The following instructions and handouts were given: Home meds as directed. Handouts on atrial fibrillation and cardiac event monitoring Keep dressing clean, dry and intact. Follow up with Dr. Galvan cardiology for the cardiac event monitoring. Follow up with PCP in a week Discontinued lines and drains: peripheral IV intact, patient tolerated removal, no complications noted. Patient discharged to [facility] via wheelchair accompanied by family member and transport personnel at 1340.
[2020-06-18] MEDS ORDERED: ATORVASTATIN CALCIUM 10 MG TABLET. PO SCH (21:00)
== END 2020-06-18 13:40 | DRG 481 ==
LOC: ER 11:53 → ED HOLD 14:04 → 4 NORTH 16:20 → 2 NORTH 06-16 14:04
PROVIDERS: ADMIT Internal Medicine; ATTEND Internal Medicine
PROC: 0QS634Z Reposition Right Upper Femur with Internal Fixation Device, Percutaneous Approach (ICD-10-PCS; principal; 2020-06-12 11:00)
DX: S72.141A Displaced intertrochanteric fracture of right femur, initial encounter for closed fracture (principal); E44.1 Mild protein-calorie malnutrition; D64.9 Anemia, unspecified; E03.9 Hypothyroidism, unspecified; E78.00 Pure hypercholesterolemia, unspecified; E78.5 Hyperlipidemia, unspecified; I12.9 Hypertensive chronic kidney disease with stage 1 through stage 4 chronic kidney disease, or unspecified chronic kidney disease; I25.10 Atherosclerotic heart disease of native coronary artery without angina pectoris; I35.0 Nonrheumatic aortic (valve) stenosis; I48.91 Unspecified atrial fibrillation; I49.3 Ventricular premature depolarization; M81.0 Age-related osteoporosis without current pathological fracture; N18.9 Chronic kidney disease, unspecified; W01.0XXA Fall on same level from slipping, tripping and stumbling without subsequent striking against object, initial encounter; Y92.009 Unspecified place in unspecified non-institutional (private) residence as the place of occurrence of the external cause; Y93.K1 Activity, walking an animal; Z82.49 Family history of ischemic heart disease and other diseases of the circulatory system; Z85.3 Personal history of malignant neoplasm of breast; Z90.49 Acquired absence of other specified parts of digestive tract; Z20.828 Contact with and (suspected) exposure to other viral communicable diseases; Z88.8 Allergy status to other drugs, medicaments and biological substances; Z68.28 Body mass index [BMI] 28.0-28.9, adult; Z79.899 Other long term (current) drug therapy
CPT/HCPCS: 36415; 51702; 71045; 73502; 73552; 73562; 76000; 80048; 80053; 80061; 81001; 83540; 83550; 83735; 84439; 84443; 85025; 85027; 85610; 85730; 86850; 86900; 86901; 87426; 93005; 93306; 93971; 96374; 99285; A7015; C1713; C1887; J0690; J1100; J1650; J2270; J2405; J2704; J3010; J3490; J7120; 97110-GO; 97110-GP; 97116-GP; 97530-GO; 97530-GP; 97535-GO; G0378; U0003-CS